=== PATIENT | female | born 1955 | race Caucasian/White ===

== ENCOUNTER 2017-07-07 22:30 | Emergency (ER) | payer BC, SELFPAY ==
[2017-07-07 22:33] VITALS: BP 150/77; PULSE 68; RESP 18; TEMP 37.1; O2SAT 98; BMI 37.0
[2017-07-07 23:03] LABS: Bacteria 0 SEEN /hpf (None Seen); Mucous, Urine 0 SEEN /hpf (<or=2+); Red Blood Cells-Urine 0 SEEN /hpf (0-5)
[2017-07-07 23:05] LABS: Absolute Lymphocyte Count 2.13 X10^3/ul (0.83-4.51); Absolute Neutrophil Count 4.3 X10^3/uL (2.0-7.7); Basophil# 0.03 X10^3/uL; Basophil% 0.4 % (0-1); Eosinophil# 0.16 X10^3/uL; Eosinophils% 2.2 % (0-5); Hematocrit 42.2 % (37-47); Hemoglobin 13.8 g/dl (12.0-15.0); Lymphocyte # 2.13 X10^3/ul (4.0); Lymphocyte % 29.4 % (19-41); Mean Corp Hgb Conc 32.7 g/gl (32-36); Mean Corpuscular Hgb 27.3 pg (27.0-32.0); Mean Corpuscular Volume 83.6 fL (81-99); Mean Platelet Vol. 9.3 fl (6.2-12.0); Monocyte# 0.57 X10^3/uL; Monocyte% 7.9 % (0-10); Neutrophil # 4.34 X10^3/uL (2.7-7.7); Neutrophil % 59.8 % (47-70); Platelet Count 207 K/mm3 (150-450); RBC Distribution Width CV 14.6 % (11.6-14.6); RBC Distribution Width SD 43.9 fl (35.1-43.9); Red Blood Count 5.05 M/mm3 (4.2-5.4); White Blood Count 7.3 K/mm3 (4.4-11.0)
[2017-07-07 23:06] LABS: POSITIVE COUNT NO; POSITIVE DIFFERENTIAL NO; POSITIVE MORPHOLOGY NO
[2017-07-07 23:07] LABS: Color, Urine Straw (Yellow); Glucose, Dipstick Normal (Normal); Ketone-Dipstick Negative (Negative); Leukocyte Esterase-Dipstick Negative /ul (Negative); Nitrite-Dipstick Negative (Negative); Occult Blood-Urine Negative /ul (Negative); Protein-Dipstick Negative (Negative); Urine Bilirubin Dipstick Negative (Negative); Urine Clarity Clear (Clear); Urine Urobilinogen Normal (Normal); Urine pH 6.5 (5.0 - 8.0)
[2017-07-07 23:13] LABS: Squamous Epithelial Cells - UA 0-5 SEEN /hpf (5-10)
[2017-07-07 23:14] LABS: Anion Gap 8 (5-15); BUN 12 mg/dL (7-18); BUN/Creat Ratio 18.9 RATIO (10-20); Calcium,Total 8.9 mg/dL (8.5-10.1); Chloride 105 mmol/L (98-107); Creatinine, Serum 0.64 mg/dL (0.55-1.02); EST Glomerular Filtration Rate 101 mL/min (>60); Est Glom Filt Rate - Afr Amer 122 mL/min (>60); Estimated Creatinine Clearance 77.33 ml/min; Glucose 208 mg/dL (74-106); Potassium 3.9 mmol/L (3.5-5.1); Sodium Level 139 mmol/L (136-145)
[2017-07-07 23:14] LABS: White Blood Cells 0-5 SEEN /hpf (0-5)
--- NOTE | 2017-07-07 23:24 | EKG12_ITS ---
Test Reason : ABD. PAIN Blood Pressure : / mmHG Vent. Rate : 069 BPM Atrial Rate : 069 BPM P-R Int : 146 ms QRS Dur : 076 ms QT Int : 410 ms P-R-T Axes : 046 -24 013 degrees QTc Int : 439 ms Normal sinus rhythm Leftward axis Poor R wave progression Septal MT, age undetermined, cannot be excluded Confirmed by TONY WHITTINGTON, NIA ([id number]), manager editorial DEMETRIA PIERRE ([id number]) on 07/11/2017 1:10:04 PM Referred By: BHAVANA Confirmed By:NIA JIMENEZ MD
--- NOTE | 2017-07-07 23:25 | CT_ITS ---
STUDY: CT ABDOMEN AND PELVIS WITH CONTRAST REASON FOR EXAM: Female, 62 years old. Lower abdominal pain with diarrhea and nausea. History of diabetes. RADIATION DOSAGE (If Supplied By Facility): CTDIvol = ( 18.63 ) mGy, DLP = ( 1260.96 ) mGycm TECHNIQUE: Transaxial images were obtained from the dome of the diaphragm to the symphysis pubis without oral contrast. 100ML ml of Isovue 300 contrast was administered. Sagittal and coronal images were reconstructed. Individualized dose optimization techniques were used for this CT. COMPARISON: None. FINDINGS: There is mild atelectasis in the visualized lung bases. The visualized portions of the heart are within normal limits. Normal liver. Normal gallbladder and extrahepatic biliary system. There is mild splenomegaly. Normal pancreas. There is a 4.6 cm right adrenal mass which has attenuation characteristics indeterminate for benign adenoma. This also contains some calcifications. Left adrenal gland appears normal. Normal right kidney. There is a 2 cm peripelvic cyst in the lower pole of the left kidney. Otherwise normal left kidney. Assessment of the stomach is limited by nondistention. Normal small intestine. Normal colon. The appendix is visualized on axial images 94-97 and it appears normal.. There is mild atherosclerotic calcification of the abdominal aorta, without a demonstrated aneurysm. Normal inferior vena cava. Normal retroperitoneum. Normal urinary bladder. There is retrograde filling of the left gonadal vein, consistent with venous valvular incompetence. There are associated left adnexal varices. Normal abdominal wall. There are multilevel degenerative changes of the visualized lumbar spine. CT/Abdomen/Pelvis W IV Cont ONLY IMPRESSION: 4.6 cm right adrenal mass. Suggest MRI of the groundglass for further characterization. Mild splenomegaly. Small left renal cyst. Atherosclerosis. No evidence for acute pathology. Electronically Signed: Gurdeep Dominguez MD at 1:27 EST , Service support ,
--- NOTE | 2017-07-07 23:30 | ED.VISSUMM ---
- ER Visit Summary Date of Service: 07/07/17 Chief Complaint: [Abdominal pain] History of Present Illness: The patient is a 62 F [who presents the emergency department with nausea and upper abdominal pain. It started this morning after she ate a fatty breakfast. She had one episode of loose stool. She was not able to sleep because the pain which she describes as epigastric and radiating across both sides. She describes as a cramping pain. It was worse this afternoon but is currently a 3 out of 10. Additionally she is concerned because 2 days ago she has severe headache right behind her left ear and felt like her legs were weak and had a brief episode of fluttering and shooting pain across her chest. She has a history of diabetes and hyperlipidemia but no other medical problems. She does not smoke or drink alcohol. She has had no abdominal surgeries. She has had chills today.] P pressure 150/77 other vitals within normal limits hysical Examination: [] Test Results: [] Emergency Department Course and Treatment: [] Blood pressure 150/77 other vitals within normal limits WN WD NAD PERRL EOMI MMM NECK supple and nontender, no masses RRR no murmur rub or gallop, no peripheral edema, symmetric radial pulses CTAB no respiratory distress ABDOMEN is soft she has mild epigastric tenderness maximal tenderness is over McBurney's point in the right lower quadrant she has a positive Rovsing's but no psoas or obturator sign, normal bowel sounds, no distension, no rebound or guarding SKIN is warm and dry no rashes Alert and Oriented x3, CN II-XII in tact, no motor or sensory deficits, gait normal No lymphadenopathy Treatment Plan: [Screening labs were unremarkable except for a blood sugar of 208 consistent with her diabetes. Urine was normal. CT of the abdomen and pelvis shows a right adrenal lesion and MRI was recommended for further workup. There is no evidence of appendicitis. Patient was feeling improved. EKG showed no ischemic changes. Troponin was normal. I did page her doctor 1 to discuss the right adrenal lesion as well as to see if they could arrange a 24-hour follow-up for reevaluation for appendicitis. Spoke with Dr. Jaramillo.] Disposition: [Patient discharge] Impression: [Abdominal pain 2. Right adrenal lesion] This note was generated with [employer] software. It may contain incorrect words, spelling, and punctuation that were not noted in review of the chart prior to signing ED Disposition - Plan for ED Patient: Chief Complaint: Abd Pain Referrals: Wyatt Hines MD [Primary Care Provider] -
[2017-07-07] MEDS: 0.9% Normal Saline 1,000 ML 1000 ML IV (23:37)
[2017-07-07] MEDS: Ondansetron 4 MG/2 ML Vial IV (23:37)
[2017-07-07 23:47] LABS: AST(SGOT) 10 U/L (15-37); Alanine Aminotransfer ALT/SGPT 23 U/L (13-56); Albumin, Serum 3.4 g/dL (3.2-5.0); Alkaline Phosphatase 124 U/L (45-117); Bilirubin, Direct 0.08 mg/dL (0.00-0.30); Globulin 3.9 g/dL (2.2-4.2); Protein, Total 7.3 g/dL (6.4-8.2)
--- NOTE | 2017-07-08 01:44 | ED.DEP ---
ED Disposition - Plan for ED Patient: Chief Complaint: Abd Pain Instructions: ED Abdominal Pain Appendx Poss Prescriptions: Ondansetron [Zofran Odt] 4 mg PO Q8H PRN PRN #7 tablet PRN Reason: Nausea Referrals: Wyatt Hines MD [Primary Care Provider] - 1 Day Additional Instructions: 4.6cm right adrenal lesion recommend MRI for follow up call Dr. Hines tomorrow. Ask to speak with nurse. State that you need re-eval for right lower quadrant abdominal pain.
--- NOTE | 2017-07-08 01:47 | DCINST.ED_ITS ---
ED Disposition - Plan for ED Patient: Chief Complaint: Abd Pain Instructions: ED Abdominal Pain Appendx Poss Prescriptions: Ondansetron [Zofran Odt] 4 mg PO Q8H PRN PRN #7 tablet PRN Reason: Nausea Referrals: Wyatt Hines MD [Primary Care Provider] - 1 Day Additional Instructions: 4.6cm right adrenal lesion recommend MRI for follow up call Dr. Hines tomorrow. Ask to speak with nurse. State that you need re- eval for right lower quadrant abdominal pain.
[2017-07-08 02:06] VITALS: BP 134/85; PULSE 56; RESP 16; O2SAT 98
== END 2017-07-08 02:06 | disposition home or self-care (01) ==
PROVIDERS: Emergency Provider Emergency Medicine; Family Provider Family Medicine; PCP Family Medicine
DX: E27.9 Disorder of adrenal gland, unspecified (principal); R10.13 Epigastric pain; E11.9 Type 2 diabetes mellitus without complications; Z79.4 Long term (current) use of insulin; E78.5 Hyperlipidemia, unspecified; Z79.899 Other long term (current) drug therapy
CPT/HCPCS: 74177; 80048; 80076; 81001; 84484; 85025; 93005; 96361; 96374; 99285; J7030; Q9967; A4216; J2405

== ENCOUNTER 2017-09-15 08:55 | Emergency (ER) | payer BC, SELFPAY ==
[2017-09-15 08:56] VITALS: BP 160/79; PULSE 86; RESP 16; TEMP 36.6; BMI 37.2
--- NOTE | 2017-09-15 09:19 | ED.VISSUMM ---
- ER Visit Summary Date of Service: 09/15/17 Chief Complaint: Wound infection History of Present Illness: The patient is a [address] Hines and Dr. aguilar. She reports that one week ago she had a cyst removed from the back of her right index finger. She was doing well until yesterday. It became red. She now has mild pain when she touches it that she describes as aching. She did not have pain prior to this. She reports it has not been draining anything. No constitutional symptoms. No fever, chills, nausea, or vomiting. Physical Examination: Vitals: Stable. Afebrile. General: Well-nourished and well-developed. Head: Normocephalic atraumatic. Neck: Supple, no lymphadenopathy. No JVD. Nontender. Cardiovascular: Regular rate and rhythm. No murmurs. Respiratory: No respiratory distress. Clear to auscultation bilaterally. Abdominal: Soft, nontender, nondistended, normal bowel sounds. No guarding, rebound, or peritoneal signs. Back: Nontender. Extremities: On the dorsum of her right index finger over the PIP joint and distally there is a 3 cm L-shaped incision that has [address] There is surrounding erythema. No induration or fluctuance.. Skin: Normal color, no rash. Neurologic: Alert and oriented ?3. Cranial nerves II through XII are intact. Normal strength and sensation. Psych: Normal affect. Test Results: [] Emergency Department Course and Treatment: Patient was given Bactrim and Keflex. She was discussed with Dr. Hernandez who states it is not unusual for the incision to appear like this. He would like the stitches left in place. Treatment Plan: Patient will be discharged on Bactrim, Keflex, and Bactroban ointment. Instructed to follow-up with Dr. Hernandez in 4 days for another exam. Disposition: To home in improved and stable condition. Impression: 1. Postop day #7 status post cyst removal right index finger. 2. Wound infection. This note was generated with [employer] software. It may contain incorrect words, spelling, and punctuation that were not noted in review of the chart prior to signing ED Disposition - Plan for ED Patient: Chief Complaint: Wound Check Instructions: ED Wound Infec After Surgery Prescriptions: Cephalexin [Keflex] 500 mg PO Q6 #40 capsule Smz/Tmp Ds [Bactrim Ds] 1 tablet PO BID #20 tablet Mupirocin [Bactroban] 1 applic TOPICAL TID #1 tube Referrals: Fidel Hernandez MD [STAFF PHYSICIAN] - 09/19/17
[2017-09-15] MEDS: Smz/Tmp Ds Tablet 1 TABLET PO (09:32)
[2017-09-15] MEDS: Cephalexin 500 MG Capsule PO (09:33)
== END 2017-09-15 10:23 | disposition home or self-care (01) ==
LOC: ED 09:55
PROVIDERS: Emergency Provider Emergency Medicine; Family Provider Family Medicine; PCP Family Medicine
DX: T81.4XXA Infection following a procedure, initial encounter (principal); B99.9 Unspecified infectious disease; E10.9 Type 1 diabetes mellitus without complications; Z79.4 Long term (current) use of insulin; L40.50 Arthropathic psoriasis, unspecified; Z79.899 Other long term (current) drug therapy
CPT/HCPCS: 99283

== ENCOUNTER 2017-12-08 05:50 | Emergency (ER) | payer OTHER, BC, SELFPAY ==
[2017-12-08 05:52] VITALS: BP 152/74; PULSE 66; RESP 18; TEMP 36.9; O2SAT 98; BMI 37.8
--- NOTE | 2017-12-08 06:49 | RAD_ITS ---
STUDY: X-RAY - LUMBAR SPINE REASON FOR EXAM: Female, 62 years old. Back pain and right hip pain. Lifting injury. TECHNIQUE: AP and lateral view(s) of the lumbar spine were obtained. COMPARISON: None FINDINGS: There is an exaggerated lumbar lordosis. There is no substantial scoliosis. There is a normal alignment of the vertebrae. There is mild degree of endplate spondylosis of the lumbar vertebrae. There is multi-level degenerative disc disease with multi-level disc space narrowing. The soft tissue structures are unremarkable. RAD/Lumbar Spine 2 or 3 Views IMPRESSION: Degenerative changes of the spine, as detailed above. Exaggerated lumbar lordosis. Electronically Signed: Kojo Carmen MD at 8:20 EDT Tel [phone], Service support ,
--- NOTE | 2017-12-08 06:49 | RAD_ITS ---
STUDY: X-RAY - RIGHT KNEE REASON FOR EXAM: Female, 62 years old. Pain following injury. TECHNIQUE: 4 view(s) of the knee. COMPARISON: None. FINDINGS: Normal visualized distal femur. Normal visualized proximal tibia and fibula. Normal proximal tibiofibular articulation. Normal medial femorotibial compartment. Normal lateral femorotibial compartment. Normal patellofemoral articulation. The soft tissue structures are unremarkable. RAD/Knee 4 or More Views IMPRESSION: Normal x-ray examination of the knee. Electronically Signed: Kojo Carmen MD at 8:08 EDT Tel [phone], Service support ,
--- NOTE | 2017-12-08 08:24 | ED.VISSUMM ---
- ER Visit Summary Date of Service: 12/08/17 Chief Complaint: Back pain History of Present Illness: The patient is a 62 F who presents with lower back pain. She was lifting a heavy box while at work. She then gradually developed right lower back pain with radiation into her hip and medial thigh. She also complains of some pain on the outside of her right knee. She has been able to ambulate. She also complains of some down the leg but no numbness. No fevers abdominal pain urinary retention or fecal incontinence. Physical Examination: Afebrile vitals unremarkable Heart regular rate and rhythm Lungs are clear Abdomen soft Patient does have paraspinal right lumbar tenderness Active full range of motion of the right hip no pain with logroll Active full range of motion of the right knee no effusion she does have some lateral tenderness Brisk capillary refill normal sensation Test Results: Lumbar x-rays show degenerative changes. Knee x-ray is normal. Emergency Department Course and Treatment: Patient advised on supportive care including anti-inflammatory use. Follow-up with [facility]. All questions answered at bedside. Patient discharged home in good condition. Treatment Plan: [] Disposition: Discharge Impression: Lumbar radiculopathy Right knee sprain This note was generated with [employer] dictation software. It may contain incorrect words, spelling, and punctuation that were not noted in review of the chart prior to signing ED Disposition - Plan for ED Patient: Chief Complaint: Back Referrals: Wyatt Hines MD [Primary Care Provider] -
--- NOTE | 2017-12-08 08:29 | ED.DCSUM_ITS ---
- ER Visit Summary Date of Service: 12/08/17 Chief Complaint: Back pain History of Present Illness: The patient is a 62 F who presents with lower back pain. She was lifting a heavy box while at work. She then gradually developed right lower back pain with radiation into her hip and medial thigh. She also complains of some pain on the outside of her right knee. She has been able to ambulate. She also complains of some down the leg but no numbness. No fevers abdominal pain urinary retention or fecal incontinence. Physical Examination: Afebrile vitals unremarkable Heart regular rate and rhythm Lungs are clear Abdomen soft Patient does have paraspinal right lumbar tenderness Active full range of motion of the right hip no pain with logroll Active full range of motion of the right knee no effusion she does have some lateral tenderness Brisk capillary refill normal sensation Test Results: Lumbar x-rays show degenerative changes. Knee x-ray is normal. Emergency Department Course and Treatment: Patient advised on supportive care including anti-inflammatory use. Follow-up with [facility]. All questions answered at bedside. Patient discharged home in good condition. Treatment Plan: [] Disposition: Discharge Impression: Lumbar radiculopathy Right knee sprain This note was generated with [employer] dictation software. It may contain incorrect words, spelling, and punctuation that were not noted in review of the chart prior to signing ED Disposition - Plan for ED Patient: Chief Complaint: Back Referrals: Wyatt Hines MD [Primary Care Provider] -
--- NOTE | 2017-12-08 08:31 | ED.DEP ---
ED Disposition - Plan for ED Patient: Chief Complaint: Back Instructions: ED Sciatica, ED Sprain Knee Referrals: Wyatt Hines MD [Primary Care Provider] - [facility] [GROUP OF PHYSICIANS] -
[2017-12-08 08:43] VITALS: BP 122/76; PULSE 71; RESP 16; O2SAT 99
== END 2017-12-08 08:44 | disposition home or self-care (01) ==
LOC: ED 06:58
PROVIDERS: Emergency Provider Emergency Medicine; Family Provider Family Medicine; PCP Family Medicine
DX: M54.16 Radiculopathy, lumbar region (principal); S83.91XA Sprain of unspecified site of right knee, initial encounter; X50.0XXA Overexertion from strenuous movement or load, initial encounter; Y93.89 Activity, other specified; Y92.9 Unspecified place or not applicable; Y99.0 Civilian activity done for income or pay; E78.00 Pure hypercholesterolemia, unspecified; E11.40 Type 2 diabetes mellitus with diabetic neuropathy, unspecified; K21.9 Gastro-esophageal reflux disease without esophagitis; M19.90 Unspecified osteoarthritis, unspecified site; Z79.4 Long term (current) use of insulin; Z79.899 Other long term (current) drug therapy
CPT/HCPCS: 72100; 73564; 99282

== ENCOUNTER 2018-08-29 17:13 | Emergency (ER) | payer OTHER, SELFPAY ==
[2018-08-29 17:14] VITALS: BP 157/80; PULSE 85; RESP 16; TEMP 36.3; O2SAT 97; BMI 35.5
--- NOTE | 2018-08-29 17:45 | ED.VISSUMM ---
- ER Visit Summary Date of Service: 08/29/18 Chief Complaint: Atraumatic right lateral elbow pain History of Present Illness: The patient is a 63 F history of insulin-dependent diabetes and high cholesterol. Patient is right-hand dominant. She works at [employer]. She does a lot of work with her hands. For the last 2 days she has had right lateral elbow pain worse with movement. No swelling. No fall or trauma. No fever or redness. No prior arm surgery. She said it does radiate up into her shoulder at times. Worse with movement better with rest. Physical Examination: Older female vital signs are stable afebrile. HEENT exam unremarkable. Neck nontender. Lungs clear to auscultation bilaterally. Heart regular rhythm no murmur. Abdomen soft and nontender. Normal bowel sounds no peritoneal signs. Patient moving all 4 extremities. Neurovascular intact. Her right shoulder wrist and hand are nontender neurovascular intact. Palpable radial pulse. 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 Normal cap refill in the hand. Normal sensation. She has full range of motion or shoulder and wrist. She is able to do flexion and extension of the right elbow pain with flexion and also with supination. She has tenderness along her right lateral epicondyles consistent with a lateral epicondylitis. No bony deformity. No redness or warmth. No swelling. Right hand has normal sensation and cap refill. She also some mild tenderness behind the right scapula soft tissue. Neurologically she is awake and alert with no deficit. Test Results: None Emergency Department Course and Treatment: Patient's history and exam are consistent with right lateral epicondylitis. She does not need any imaging due to there is been no trauma. There is no signs of infection. Treatment Plan: Ice to the area. Rest. Forearm compression band. Motrin 600 mg 3-4 times a day. Follow-up with not improving. Disposition: Discharge Impression: Acute right lateral elbow pain secondary to lateral epicondylitis Workers comp This note was generated with [employer] dictation software. It may contain incorrect words, spelling, and punctuation that were not noted in review of the chart prior to signing ED Disposition - Plan for ED Patient: Referrals: Wyatt Hines MD [Primary Care Provider] -
--- NOTE | 2018-08-29 17:48 | ED.DCSUM_ITS ---
- ER Visit Summary Date of Service: 08/29/18 Chief Complaint: Atraumatic right lateral elbow pain History of Present Illness: The patient is a 63 F history of insulin-dependent diabetes and high cholesterol. Patient is right-hand dominant. She works at [employer]. She does a lot of work with her hands. For the last 2 days she has had right lateral elbow pain worse with movement. No swelling. No fall or trauma. No fever or redness. No prior arm surgery. She said it does radiate up into her shoulder at times. Worse with movement better with rest. Physical Examination: Older female vital signs are stable afebrile. HEENT exam unremarkable. Neck nontender. Lungs clear to auscultation bilaterally. Heart regular rhythm no murmur. Abdomen soft and nontender. Normal bowel sounds no peritoneal signs. Patient moving all 4 extremities. Neurovascular intact. Her right shoulder wrist and hand are nontender neurovascular intact. Palpable radial pulse. 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 Normal cap refill in the hand. Normal sensation. She has full range of motion or shoulder and wrist. She is able to do flexion and extension of the right elbow pain with flexion and also with supination. She has tenderness along her right lateral epicondyles consistent with a lateral epicondylitis. No bony deformity. No redness or warmth. No swelling. Right hand has normal sensation and cap refill. She also some mild tenderness behind the right scapula soft tissue. Neurologically she is awake and alert with no deficit. Test Results: None Emergency Department Course and Treatment: Patient's history and exam are consistent with right lateral epicondylitis. She does not need any imaging due to there is been no trauma. There is no signs of infection. Treatment Plan: Ice to the area. Rest. Forearm compression band. Motrin 600 mg 3-4 times a day. Follow-up with not improving. Disposition: Discharge Impression: Acute right lateral elbow pain secondary to lateral epicondylitis Workers comp This note was generated with [employer] dictation software. It may contain incorrect words, spelling, and punctuation that were not noted in review of the chart prior to signing ED Disposition - Plan for ED Patient: Referrals: Wyatt Hines MD [Primary Care Provider] -
--- NOTE | 2018-08-29 17:49 | ED.DEP ---
ED Disposition - Plan for ED Patient: Disposition: Home or Assisted Living Instructions: ED Epicondylitis Lateral Elbow Referrals: [facility] [GROUP OF PHYSICIANS] - 1 Week if not improving Additional Instructions: Ice to right elbow to decrease pain and inflammation. Motrin or Advil for pain and swelling. Rest. You may want to get a compression band at a local sporting goods store or pharmacy. You have lateral epicondylitis or tennis elbow.
[2018-08-29 17:53] VITALS: BP 163/118; PULSE 83; RESP 16; O2SAT 97
[2018-08-29 17:59] VITALS: BP 130/63; PULSE 80; RESP 16; O2SAT 96
== END 2018-08-29 18:01 | disposition home or self-care (01) ==
LOC: ED 17:56
PROVIDERS: Emergency Provider Emergency Medicine; Family Provider Family Medicine; PCP Family Medicine
DX: M77.11 Lateral epicondylitis, right elbow (principal); E78.00 Pure hypercholesterolemia, unspecified; E11.9 Type 2 diabetes mellitus without complications; Z79.4 Long term (current) use of insulin
CPT/HCPCS: 99282

== ENCOUNTER → 2019-11-02 11:00 | Outpatient (CLI) | payer BC, SELFPAY ==
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
== END ==
PROVIDERS: PCP Nurse Practitioner Primary Care; Referring Provider Psychiatry & Neurology Neurology; Visit Provider Psychiatry & Neurology Neurology
DX: F03.90 Unspecified dementia, unspecified severity, without behavioral disturbance, psychotic disturbance, mood disturbance, and anxiety (principal)
CPT/HCPCS: 70551

== ENCOUNTER 2022-03-03 16:34 | Observation (INO) | payer MEDICARE, SELFPAY ==
[2022-03-03 16:35] VITALS: BP 138/62; PULSE 97; RESP 16; TEMP 37.2; O2SAT 96; BMI 30.9
--- NOTE | 2022-03-03 18:43 | EX.ED.DYSGE1 ---
HPI History of Present Illness Chief Complaint: Edema Informant: patient and spouse/S.O. Narrative Narrative: SeenPatient presents with diffuse edema. This has been going on for about a week. Been notably worsening but is also not getting a lot better. For the first few days it did worsen. She is not having chest pain. No fevers chills. She does have some overall decreased energy but she just had chemotherapy for the third time 3 weeks ago. She does not know if she had any cardiotoxic chemotherapy. She has no history of CHF. She states sometimes she feels puffy with her breathing but this is not new or different. Its not consistent. It is intermittent. Its not going on now. She is still able to walk and do her long walks. But her energy levels last. But its not due to dyspnea. No cough or hemoptysis. No orthopnea. No history of DVT or PE. She saw her oncologist today. They wanted her evaluated in the ED pending repeat chemotherapy tomorrow. She was diagnosed with breast cancer back in December. She has had 3 chemotherapies total. Each 1 has had different side effects. The edema is new this time. Nothing makes this notably better or worse. Elevation helps slightly but does not resolve it. [facility] Medical History Adrenal disorder Anxiety and depression Bone fracture Breast lump Cyst GERD (gastroesophageal reflux disease) Heart murmur Neuropathy Osteoarthritis Psoriatic arthritis Seasonal allergies Skin cancer STD (female) Type 2 diabetes mellitus Vision problem Home Medications adrenal rx herbal PO 10/12/17 [History Last Taken Unknown] apremilast 30 mg tablet (Otezla) 30 mg PO .q d 10/12/17 [History Last Taken Unknown] atorvastatin 20 mg tablet 20 mg PO QDAY 10/12/17 [History Last Taken Unknown] buspirone 10 mg tablet 10 mg PO .q d 10/12/17 [History Last Taken Unknown] escitalopram oxalate 10 mg tablet 10 mg PO QDAY 10/12/17 [History Last Taken Unknown] gabapentin 300 mg capsule 600 mg PO QDAY 10/12/17 [History Last Taken Unknown] insulin glargine U-300 conc 300 unit/mL (1.5 mL) subcutaneous pen (Topriscila SoloStar U-300 Insulin) 55 unit subcut .COMPLEX 10/12/17 [History Last Taken Unknown] insulin lispro 100 unit/mL subcutaneous pen (Humalog KwikPen (U-100) Insulin) See Rx Instructions subcut TID 10/12/17 [History Last Taken Unknown] ranitidine HCl 150 mg capsule 150 mg PO PRN PRN Heartburn 10/12/17 [History Last Taken Unknown] Allergy/AdvReac Type Severity Reaction Status Date / Time Penicillins [PCN] Allergy Other Verified 03/03/22 16:35 niacin AdvReac Other Verified 03/03/22 16:35 Family History Mother Anxiety Cancer Father Diabetes Surgical History H/O dilation and curettage Social History Smoking Status: Never smoker alcohol intake: current substance use type: does not use additional social history: DOES USE ASPIRIN DOES USE IBUPROFEN ROS ROS ED Constitutional Constitutional ED: Denies chills or fever(s) ENT ENT ED: Denies rhinorrhea or sore throat Cardiovascular Cardiovascular: Denies chest pain, orthopnea, palpitations or racing heartbeat Respiratory/Chest Respiratory/Chest: Denies cough, dyspnea on exertion or orthopnea Gastrointestinal Gastrointestinal: Denies nausea Genitourinary Genitourinary ED: Reports other Details: No notable change in urine output. ; Denies dysuria Musculoskeletal Musculoskeletal: Reports myalgias and other Details: She does complain of some muscle aches mostly in her quadriceps area. This mostly occurs with increased activity. ; Denies arthralgias Integumentary Denies rash Neurologic Neurologic: Denies headache(s) or paresthesias Endocrine Endocrinology: Denies polydipsia or polyuria Hematologic/Lymphatic Hematologic/Lymphatic: Denies easy bleeding or easy bruising Allergic/Immunologic Allergic/Immunologic ED: Denies urticaria EXAM Physical Exam Const Vital Signs: 03/03/22 16:35 03/03/22 20:38 03/03/22 22:21 Temperature 98.9 F Temperature Source Temporal Pulse Rate 97 89 87 Respiratory Rate 16 17 24 H Blood Pressure 138/62 H 90/57 L 118/64 Blood Pressure Mean 87 68 82 Pulse Ox 96 98 97 Oxygen Delivery Method Room Air Room Air Room Air Positive well nourished and well developed General Appearance ED: well developed and NAD; Negative for cyanotic or diaphoretic HEENT Reports moist mucous membranes Eyes General Eye ED: Negative for scleral icterus Neck no JVD Resp normal respiratory effort and clear to auscultation bilaterally Resp Narrative: Lungs are completely clear bilaterally. No rales at the bases. No pain with a deep breath Auscultation: Negative for rales, rhonchi or wheezes Cardio Negative for regular rate or regular rhythm GI Negative for normal to inspection, nondistended, normoactive bowel sounds or non-tender Palpation: soft Back/Spine no CVA tenderness Extremity Extremity Narrative: Patient does have some trace pitting edema to upper and lower extremities. Most of this is from elbow and knees down. No real asymmetry. No erythema or warmth. No distended veins. Also note med port in right medial arm that looks healthy and no sign of infection. Neuro Sensorium / Orientation: alert Skin no rashes or lesions noted General Skin Exam: Negative for jaundice MDM MDM MDM Narrative Medical decision making narrative: Patient's labs show new anemia that is likely due to her chemotherapy. This could be some contribution to her symptoms. Metabolic panel shows actually low BUN and creatinine. She is trying to drink fluids but not a large amount. Liver function test overall look good. Calcium is a little bit low but this is likely due to hypoalbuminemia. Her magnesium is also low at 1.2 which is probably a contributor why she felt so weak and needed help getting up her steps by her . BNP looks good and troponin looks good. Urine had some increased white cells and cloudy but she is not having symptoms of UTI so this was sent off for culture. Chest x-ray showed atelectasis and poor inspiration but no convincing evidence of CHF. However, this patient has been on cardiotoxic chemotherapeutic agents. I talked with her oncologist, Dr. Kong. He was very concerned about this. He felt with her's rapid onset of symptoms, the drugs she got and need to know to adjust further therapies we need to get an echo to see cardiac function. I think patient will also clinically improve in terms of strength with magnesium. I gave oral initially. But we will initiate IV therapy in house. I did discuss case with hospitalist and explained the situation to patient and her . Lab Data Attestation: I reviewed the patient's lab results. Labs: Laboratory Results - last 24 hr 03/03/22 03/03/22 03/03/22 18:55 18:55 18:55 WBC 6.4 RBC 3.07 L Hgb 9.0 L Hct 29.2 L MCV 95.1 MCH 29.3 MCHC 30.8 L RDW Std Deviation 70.5 H RDW Coeff of Ricardo 20.7 H Plt Count 205 MPV 9.2 Immature Gran % (Auto) 1.300 H Neut % (Auto) 63.4 Lymph % (Auto) 24.3 [place] % (Auto) 10.5 H Eos % (Auto) 0.0 Baso % (Auto) 0.5 Absolute Neuts (auto) 4.1 Absolute Lymphs (auto) 1.55 Nucleated RBC % 0 Platelet Estimate ADEQUATE RBC Morphology N CHROM Anisocytosis RARE Macrocytosis RARE Sodium 144 Potassium 3.5 Chloride 114 H Carbon Dioxide 22.0 Anion Gap 8 BUN 6 L Creatinine 0.44 L Estim Creat Clear Calc 110.07 Est GFR (MDRD) Af Amer 182 Est GFR (MDRD) Non-Af 151 BUN/Creatinine Ratio 13.5 Glucose 101 Calcium 7.8 L Phosphorus 3.6 Magnesium 1.2 L Total Bilirubin 0.30 AST 19 ALT 21 Alkaline Phosphatase 56 Troponin I High Sens 9 B-Natriuretic Peptide 49.2 Total Protein 5.2 L Albumin 2.6 L Globulin 2.6 Albumin/Globulin Ratio 1.0 Urine Color Urine Clarity Urine pH Ur Specific [place] Urine Protein Urine Glucose (UA) Urine Ketones Urine Occult Blood Urine Nitrite Urine Bilirubin Urine Urobilinogen Ur Leukocyte Esterase Urine RBC Urine WBC Ur Squamous Epith Cells Urine Bacteria Urine Mucus 03/03/22 20:05 WBC RBC Hgb Hct MCV MCH MCHC RDW Std Deviation RDW Coeff of Ricardo Plt Count MPV Immature Gran % (Auto) Neut % (Auto) Lymph % (Auto) [place] % (Auto) Eos % (Auto) Baso % (Auto) Absolute Neuts (auto) Absolute Lymphs (auto) Nucleated RBC % Platelet Estimate RBC Morphology Anisocytosis Macrocytosis Sodium Potassium Chloride Carbon Dioxide Anion Gap BUN Creatinine Estim Creat Clear Calc Est GFR (MDRD) Af Amer Est GFR (MDRD) Non-Af BUN/Creatinine Ratio Glucose Calcium Phosphorus Magnesium Total Bilirubin AST ALT Alkaline Phosphatase Troponin I High Sens B-Natriuretic Peptide Total Protein Albumin Globulin Albumin/Globulin Ratio Urine Color Yellow Urine Clarity Sl. Cloudy Urine pH 5.0 Ur Specific [place] 1.020 Urine Protein 15 H Urine Glucose (UA) Normal Urine Ketones 50 H Urine Occult Blood Negative Urine Nitrite Negative Urine Bilirubin Negative Urine Urobilinogen Normal Ur Leukocyte Esterase 100 H Urine RBC 0-5 SEEN Urine WBC 5-10 SEEN Ur Squamous Epith Cells 0-5 SEEN Urine Bacteria 1+ Urine Mucus 0 SEEN Radiography Diagnostic Testing: Clinical Impression(s) from Imaging Studies Venous Duplex 03/03/22 18:54 IMPRESSION: Normal venous Doppler ultrasound of the bilateral lower extremities. Electronically Signed: Fredy Wagner MD at 20:06 EDT Reading Location ID and State: [id number] / [employer] Tel , Service support , Chest X-Ray 03/03/22 19:50 IMPRESSION: Poor inspiration with some bibasilar atelectasis. Electronically Signed: Fredy Wagner MD at 20:07 EDT , Chest x-ray was poor inspiration with basilar atelectasis. Ultrasound showed normal bilateral lower extremities. EKG Initial EKG: Comments: EKG done for some generalized weakness and exposure to cardiotoxic drugs. EKG read by me shows a sinus rhythm. Overall rate of 88. No ventricular ectopy. Mild left axis deviation and nonspecific ST and T wave changes but no sign of infarct or ischemia acutely. There is some poor anterior R wave and R wave progression. MA interval, QRS duration and QTc are normal. Discharge Plan Dx/Rx/DC Orders Clinical Impression: Anasarca, Muscle weakness, Hypomagnesemia, Encounter for monitoring cardiotoxic drug therapy Disposition Disposition: Acute Care Hospital [facility]
--- NOTE | 2022-03-03 18:54 | US_ITS ---
STUDY: VENOUS DOPPLER ULTRASOUND - BILATERAL LOWER EXTREMITIES REASON FOR EXAM: Female, 67 years old. bilateral swelling TECHNIQUE: Ultrasound evaluation of the deep vein system to include quiroz-scale imaging and compression was performed. Quiroz-scale imaging and Doppler sonographic evaluation, including duplex spectral analysis and qualitative color flow sonography, was performed. COMPARISON: None. FINDINGS: RIGHT LEG Common Femoral Vein: Normal compression, spontaneity and augmentation. Normal color Doppler. Common Femoral Vein/Greater Saphenous Junction: Normal compression, spontaneity and augmentation. Normal color Doppler. Deep Femoral Vein: Normal compression, spontaneity and augmentation. Normal color Doppler. Femoral Proximal: Normal compression, spontaneity and augmentation. Normal color Doppler. Femoral Middle: Normal compression, spontaneity and augmentation. Normal color Doppler. Femoral Distal: Normal compression, spontaneity and augmentation. Normal color Doppler. Popliteal Vein: Normal compression, spontaneity and augmentation. Normal color Doppler. Posterior Tibial Vein: Normal compression, spontaneity and augmentation. Normal color Doppler. Peroneal Vein: Normal compression, spontaneity and augmentation. Normal color Doppler. LEFT LEG Common Femoral Vein: Normal compression, spontaneity and augmentation. Normal color Doppler. Common Femoral Vein/Greater Saphenous Junction: Normal compression, spontaneity and augmentation. Normal color Doppler. Deep Femoral Vein: Normal compression, spontaneity and augmentation. Normal color Doppler. Femoral Proximal: Normal compression, spontaneity and augmentation. Normal color Doppler. Femoral Middle: Normal compression, spontaneity and augmentation. Normal color Doppler. Femoral Distal: Normal compression, spontaneity and augmentation. Normal color Doppler. Popliteal Vein: Normal compression, spontaneity and augmentation. Normal color Doppler. Posterior Tibial Vein: Normal compression, spontaneity and augmentation. Normal color Doppler. Peroneal Vein: Normal compression, spontaneity and augmentation. Normal color Doppler. US/Venous Duplex Imag/Chad Extrem IMPRESSION: Normal venous Doppler ultrasound of the bilateral lower extremities. Electronically Signed: Fredy Wagner MD at 20:06 EDT ,
[2022-03-03 19:08] LABS: Absolute Lymphocyte Count 1.55 X10^3/uL (0.83-4.51); Absolute Neutrophil Count 4.1 X10^3/uL (2.0-7.7); Basophil# 0.03 X10^3/uL; Basophil% 0.5 % (0-1); Hematocrit 29.2 % (37-47); Lymphocyte # 1.55 X10^3/ul (0.83-4.51); Lymphocyte % 24.3 % (19-41); Mean Corp Hgb Conc 30.8 g/dL (32-36); Mean Corpuscular Hgb 29.3 pg (27.0-32.0); Mean Corpuscular Volume 95.1 fL (81-99); Mean Platelet Vol. 9.2 fl (6.2-12.0); Monocyte# 0.67 X10^3/uL; Monocyte% 10.5 % (0-10); NRBC Flagged by Analyzer 0 % (0-5); Neutrophil # 4.06 X10^3/uL (2.7-7.7); Neutrophil % 63.4 % (47-70); POSITIVE MORPHOLOGY YES; Platelet Count 205 K/mm3 (150-450); RBC Distribution Width CV 20.7 % (11.6-14.6); RBC Distribution Width SD 70.5 fl (35.1-43.9); Red Blood Count 3.07 M/mm3 (4.2-5.4); White Blood Count 6.4 K/mm3 (4.4-11.0)
[2022-03-03 19:13] LABS: Differential Indicated SCAN CRITERIA MET
[2022-03-03 19:38] LABS: AST(SGOT) 19 U/L (15-37); Alanine Aminotransfer ALT/SGPT 21 U/L (13-56); Albumin, Serum 2.6 g/dL (3.2-5.0); Alkaline Phosphatase 56 U/L (45-117); Anion Gap 8 (5-15); BUN 6 mg/dL (7-18); BUN/Creat Ratio 13.5 RATIO (10-20); Calcium,Total 7.8 mg/dL (8.5-10.1); Chloride 114 mmol/L (98-107); Creatinine, Serum 0.44 mg/dL (0.55-1.02); EST Glomerular Filtration Rate 151 mL/min (>60); Est Glom Filt Rate - Afr Amer 182 mL/min (>60); Estimated Creatinine Clearance 110.07 ml/min; Globulin 2.6 g/dL (2.2-4.2); Glucose 101 mg/dL (74-106); Magnesium 1.2 mg/dL (1.6-2.6); Phosphorus 3.6 mg/dL (2.5-4.9); Potassium 3.5 mmol/L (3.5-5.1); Protein, Total 5.2 g/dL (6.4-8.2); Sodium Level 144 mmol/L (136-145); Troponin-I HS 9 pg/mL (3.0-54.0)
--- NOTE | 2022-03-03 19:50 | RAD_ITS ---
STUDY: X-RAY CHEST REASON FOR EXAM: Female, 67 years old. edema, ?CHF TECHNIQUE: Single AP portable view of the chest. COMPARISON: None. FINDINGS: Right upper chest and a PICC with tip the catheter overlying the spur vena cava. Poor inspiration with some bibasilar atelectasis. There is no demonstrated pleural abnormality. Normal size heart. Normal mediastinum and maribeth. Normal visualized pulmonary arteries. Normal visualized aortic arch and descending thoracic aorta. Normal visualized thoracic spine. Normal visualized ribs, clavicles, and shoulders. There is no demonstrated abnormality of the visualized soft tissue structures of the upper abdomen. RAD/Chest 1 View (Portable) IMPRESSION: Poor inspiration with some bibasilar atelectasis. Electronically Signed: Fredy Wagner MD at 20:07 EDT ,
[2022-03-03 19:58] LABS: Anisocytosis RARE; Platelet Estimate ADEQUATE (ADEQ); Red Cell Morphology N CHROM NORMAL (NORM C&C)
[2022-03-03 19:59] LABS: Macrocytosis RARE
[2022-03-03 20:10] LABS: Color, Urine Yellow (Yellow); Glucose, Dipstick Normal (Normal); Ketone-Dipstick 50 mg/dl (Negative); Leukocyte Esterase-Dipstick 100 /ul (Negative); Nitrite-Dipstick Negative (Negative); Occult Blood-Urine Negative /ul (Negative); Protein-Dipstick 15 mg/dl (Negative); Urine Bilirubin Dipstick Negative (Negative); Urine Clarity Sl. Cloudy (Clear); Urine Urobilinogen Normal (Normal)
[2022-03-03 20:11] LABS: Mucous, Urine 0 SEEN /hpf (<or=2+)
[2022-03-03 20:15] LABS: BNP,B-Type NATRIURETIC PEPTIDE 49.2 pg/mL (0-100)
[2022-03-03 20:19] LABS: Red Blood Cells-Urine 0-5 SEEN /hpf (0-5); Squamous Epithelial Cells - UA 0-5 SEEN /hpf (5-10); White Blood Cells 5-10 SEEN /hpf (0-5)
[2022-03-03 20:20] LABS: Bacteria 1+ /hpf (None Seen)
[2022-03-03 20:38] VITALS: BP 90/57; PULSE 89; RESP 17; O2SAT 98
[2022-03-03] MEDS: Magnesium Chloride 64 MG Delay Rel.Tablet 128 MG PO (20:52)
--- NOTE | 2022-03-03 22:18 | EKG12_ITS ---
Test Reason : DYSRHYTHMIA Blood Pressure : / mmHG Vent. Rate : 088 BPM Atrial Rate : 088 BPM P-R Int : 156 ms QRS Dur : 080 ms QT Int : 376 ms P-R-T Axes : 046 -34 056 degrees QTc Int : 454 ms Normal sinus rhythm Left axis deviation Septal infarct , age undetermined Abnormal ECG Confirmed by ADRIAN WHITTINGTON, SCOTTIE ([id number]), scientific editor BRENDA WORLEY ([id number]) on 03/04/2022 2:06:25 P M Referred By: PL Confirmed By:SHERRI CAMPBELL MD
[2022-03-03 22:21] VITALS: BP 118/64; PULSE 87; RESP 24; O2SAT 97
--- NOTE | 2022-03-03 22:26 | PCM.HP.STD ---
HPI - General General Date of Admission: 03/03/22 Date of Service: 03/03/22 Chief Complaint: Severe BL UE/LE edema on chemotherapy. HPI Narrative The patient is a 67 y/o F w/ PMHx: Anxiety and Depression, Allergic rhinitis, Diabetes mellitus type II with neuropathy, GERD, Psoriatic arthritis, HLD, Breast Cancer with ongoing chemotherapy with last treatment ~ 3 weeks prior with 3 treatments total noted to have been diagnosed with breast cancer 12/2021 who presents to the [facility] ED on 03/03/22 with history of progressively worsening diffuse significant edema, worse in bilateral lower extremities progressing over the last week with decreased energy, fatigue and malaise with no chest pain or dyspnea markedly associated still able to walk and ambulate however given significant edema there was concern for cardiotoxicity secondary to chemotherapy with referral to the ED per her oncologist. She does report mild improvement of lower extremity swelling with elevation but this is only minimal. Work-up in the ED included T98.9, heart rate 97, BP 138/62, respiratory rate 16, 96% on room air, CBC with WC 6.4, hemoglobin 9.0, MCV 95.1, platelet 2 5 with increased immature granulocytes, CMP with chloride 114, BUN/creatinine 6/0.44, calcium 7.8, Phos 3.6, magnesium 1.2, hepatic profile not marked appearing, albumin 2.6, BNP 49.2, troponin 9, urinalysis with elevated specific remedy 1.020, negative nitrite, leukocyte Estrace 100, urine WC is 5-10 with 1+ urine bacteria, venous duplex ultrasound bilateral lower extremities negative for DVT, chest x-ray with poor inspiration with some bibasilar atelectasis, EKG with poor R wave progression otherwise SR without acute evidence of ischemia, UCx pending per ED but given no symptoms abx deferred. [facility] Medical History Adrenal disorder Anxiety and depression Bone fracture Breast lump Cyst GERD (gastroesophageal reflux disease) Heart murmur Neuropathy Osteoarthritis Psoriatic arthritis Seasonal allergies Skin cancer STD (female) Type 2 diabetes mellitus Vision problem Home Medications adrenal rx herbal PO 10/12/17 [History Last Taken Unknown] apremilast 30 mg tablet (Otezla) 30 mg PO .q d 10/12/17 [History Last Taken Unknown] atorvastatin 20 mg tablet 20 mg PO QDAY 10/12/17 [History Last Taken Unknown] buspirone 10 mg tablet 10 mg PO .q d 10/12/17 [History Last Taken Unknown] escitalopram oxalate 10 mg tablet 10 mg PO QDAY 10/12/17 [History Last Taken Unknown] gabapentin 300 mg capsule 600 mg PO QDAY 10/12/17 [History Last Taken Unknown] insulin glargine U-300 conc 300 unit/mL (1.5 mL) subcutaneous pen (Toujeo SoloStar U-300 Insulin) 55 unit subcut .COMPLEX 10/12/17 [History Last Taken Unknown] insulin lispro 100 unit/mL subcutaneous pen (Humalog KwikPen (U-100) Insulin) See Rx Instructions subcut TID 10/12/17 [History Last Taken Unknown] ranitidine HCl 150 mg capsule 150 mg PO PRN PRN Heartburn 10/12/17 [History Last Taken Unknown] Allergy/AdvReac Type Severity Reaction Status Date / Time Penicillins [PCN] Allergy Other Verified 03/03/22 16:35 niacin AdvReac Other Verified 03/03/22 16:35 Family History Mother Anxiety Cancer Father Diabetes Surgical History H/O dilation and curettage Social History (Updated 03/03/22 @ 23:[address] Sita Mckenzie MD) household members: spouse Smoking Status: Never smoker alcohol intake: current substance use type: does not use additional social history: DOES USE ASPIRIN DOES USE IBUPROFEN ROS ROS Narrative Admission Review of Systems: CONSTITUTIONAL: No weight loss, fever, chills, + weakness or fatigue. HEENT: Eyes: No visual loss, blurred vision, double vision or yellow sclerae. Ears, Nose, Throat: No hearing loss, sneezing, congestion, runny nose or sore throat. SKIN: No rash or itching, lesions, wounds. CARDIOVASCULAR: + Notable extremity edema. No chest pain, chest pressure or chest discomfort, palpitations, orthopnea, syncopal events. RESPIRATORY: No marked shortness of breath despite edema as noted, No cough or sputum, wheezing, hemoptysis. GASTROINTESTINAL: No anorexia, nausea, vomiting or diarrhea, abdominal pain, melena, BRBPR. GENITOURINARY: No dysuria, frequency, urgency or retention. NEUROLOGICAL: No headache, dizziness, syncope, paralysis, ataxia, numbness or tingling in the extremities, focal weakness, change in bowel or bladder control, seizure. MUSCULOSKELETAL: + muscle, back pain, joint pain or stiffness. HEMATOLOGIC: + anemia, bleeding or bruising. LYMPHATICS: No enlarged nodes. No history of splenectomy. PSYCHIATRIC: + history of depression or anxiety. ENDOCRINOLOGIC: No reports of sweating, cold or heat intolerance. No polyuria or polydipsia. ALLERGIES: No history of asthma, hives, eczema or rhinitis. Vital Signs Vital Signs Vital Signs: 03/03/22 16:35 03/03/22 20:38 03/03/22 22:21 Temperature 98.9 F Temperature Source Temporal Pulse Rate 97 89 87 Respiratory Rate 16 17 24 H Blood Pressure 138/62 H 90/57 L 118/64 Blood Pressure Mean 87 68 82 Pulse Ox 96 98 97 Oxygen Delivery Method Room Air Room Air Room Air Weight Weight: 179 lb 14.355 oz Body Mass Index (BMI) 30.9 Physical Exam Narrative Physical Examination: General: Awake, alert, oriented x 3 and cooperative, seated upright in the ED bed, fatigued, denies any acute complaints Skin: Normal color, normal turgor, no icterus, no cyanosis except occasional staged ecchymoses. HEENT: AT/NC, EOMI, PERRLA, MMM, no carotid bruits or JVD noted. Lungs: Mildly diminished, greater bases, appropriate effort, no rales, ronchi or wheezing. Heart: Regular rate and rhythm; no gallop, rub audible. Abdomen: Soft, obese, NTTP, ND, distant normal BS, no HSM. Extremities: No cyanosis, no clubbing, both upper and lower extremity swelling, more notable hands bilaterally as well as pedal to proximal ramirez bilaterally, unable to significantly pit. Neurological: Patient awake, alert, oriented as noted, cognitive function intact; pupils equally reactive to light and accommodation, cranial nerves II-XII grossly normal, moving all 4 extremities, no focal deficits, strength moderately to severely globally decreased secondary to acute presentation and recent worsening fatigue. Psychiatric: Affect appears fatigued otherwise normal, no acute evidence of depressive or anxiety feelings. Results Lab / Micro Data Result Diagrams: 03/03/22 18:55 03/03/22 18:55 Labs: Laboratory Results - last 24 hr 03/03/22 18:55: WBC 6.4, RBC 3.07 L, Hgb 9.0 L, Hct 29.2 L, MCV 95.1, MCH 29.3, MCHC 30.8 L, RDW Std Deviation 70.5 H, RDW Coeff of Ricardo 20.7 H, Plt Count 205, MPV 9.2, Immature Gran % (Auto) 1.300 H, Neut % (Auto) 63.4, Lymph % (Auto) 24.3, Ritchie % (Auto) 10.5 H, Eos % (Auto) 0.0, Baso % (Auto) 0.5, Absolute Neuts (auto) 4.1, Absolute Lymphs (auto) 1.55, Nucleated RBC % 0, Platelet Estimate ADEQUATE, RBC Morphology N CHROM, Anisocytosis RARE, Macrocytosis RARE 03/03/22 18:55: Sodium 144, Potassium 3.5, Chloride 114 H, Carbon Dioxide 22.0, Anion Gap 8, BUN 6 L, Creatinine 0.44 L, Estim Creat Clear Calc 110.07, Est GFR (MDRD) Af Amer 182, Est GFR (MDRD) Non-Af 151, BUN/Creatinine Ratio 13.5, Glucose 101, Calcium 7.8 L, Phosphorus 3.6, Magnesium 1.2 L, Total Bilirubin 0.30, AST 19, ALT 21, Alkaline Phosphatase 56, Troponin I High Sens 9, Total Protein 5.2 L, Albumin 2.6 L, Globulin 2.6, Albumin/Globulin Ratio 1.0 03/03/22 18:55: B-Natriuretic Peptide 49.2 03/03/22 20:05: Urine Color Yellow, Urine Clarity Sl. Cloudy, Urine pH 5.0, Ur Specific [place] 1.020, Urine Protein 15 H, Urine Glucose (UA) Normal, Urine Ketones 50 H, Urine Occult Blood Negative, Urine Nitrite Negative, Urine Bilirubin Negative, Urine Urobilinogen Normal, Ur Leukocyte Esterase 100 H, Urine RBC 0-5 SEEN, Urine WBC 5-10 SEEN, Ur Squamous Epith Cells 0-5 SEEN, Urine Bacteria 1+, Urine Mucus 0 SEEN Radiology Impression Venous Duplex 03/03/22 18:54 IMPRESSION: Normal venous Doppler ultrasound of the bilateral lower extremities. Electronically Signed: Fredy Wagner MD at 20:06 EDT , Chest X-Ray 03/03/22 19:50 IMPRESSION: Poor inspiration with some bibasilar atelectasis. Electronically Signed: Fredy Wagner MD at 20:07 EDT , Assessment & Plan Assessment/Plan (1) Anasarca: PLAN: Plan The patient is a 67 y/o F w/ PMHx: Anxiety and Depression, Allergic rhinitis, Diabetes mellitus type II with neuropathy, GERD, Psoriatic arthritis, HLD, Breast Cancer with ongoing chemotherapy with last treatment ~ 3 weeks prior with 3 treatments total noted to have been diagnosed with breast cancer 12/2021 who presents to the [facility] ED on 03/03/22 with history of progressively worsening diffuse significant edema, worse in bilateral lower extremities progressing over the last week with decreased energy, fatigue and malaise with no chest pain or dyspnea markedly associated still able to walk and ambulate however given significant edema there was concern for cardiotoxicity secondary to chemotherapy with referral to the ED per her oncologist. #1. Bilateral upper and lower extremity significant edema, anasarca, possible chemotherapy side effect: Patient is not significantly hypoxic and chest x-ray does not demonstrate any significant overload with a normal BNP. To be cautious however given significant edema on evaluation although not markedly pitting could certainly be chemotherapeutic side effect therefore we will admit to PCU, maintain on monitor, cycle cardiac enzymes be cautious, supplement magnesium given significant decreased level 1.2, obtain echocardiogram, place neck Elvis wraps to bilateral lower extremity with elevation as able, will pulse dose with IV Lasix and continue to closely monitor. If there is significant cardiac changes/findings on echocardiogram may need to involve cardiology #2. Bilateral breast cancer, unclear type: Patient with bilateral breast cancer with bilateral lumpectomies previously performed. Patient is unclear if she had lymph node dissections also performed but would assume this was likely also performed. Patient has ongoing chemotherapy noting 3 treatments total with most recent approximately 3 weeks prior to current presentation with over the last week as noted significant edema with concern for cardiotoxicity. Patient is following with Dr. Kong. Mag 1.2, being supplemented, Phos normal level. #3. Chronic anemia, normocytic: Admission hemoglobin 9.0, unclear current hemoglobin baseline but ongoing chemotherapy likely etiology, continue to trend CBC #4. Hypomagnesia: Admission magnesium level 1.2, supplemental magnesium ordered, will repeat level in AM. #5. Diabetes mellitus type II with neuropathy: Will continue home insulin regimen, ADA diet, accu checks w/ ISS, continue patient home gabapentin regimen. #6. Anxiety and depression: We will continue patient home escitalopram and BuSpar regimen. #7. Psoriatic arthritis: Patient is on chronic apremilast regimen which will be continued. #8. Hyperlipidemia: We will continue patient on statin therapy. #9. GERD: We will continue patient home ranitidine regimen. #10. DVT prophylaxis: SCDs, Lovenox. #11. CODE status: Patient does not have a formal healthcare power of civil attorney assigned but she notes her would be her decision-maker and living will is currently being performed. Discussed CODE status at length including difference between FULL code, DNR-CCA and DNR-CC status. Following discussions about the differences in these status, requested Full Code status. Advanced Care Planning Face to Face Time: 16 minutes. Charges/Coding Visit Charges OBSV E&M: 31209 Initial observation care L3 Procedures Hospitalists Procedures: 47890 Advncd Care Plan 30 Min
[2022-03-03 23:21] VITALS: BP 129/80; PULSE 75; RESP 18; TEMP 36.1; O2SAT 97
[2022-03-03 23:37] VITALS: PULSE 89; BMI 30.3
--- NOTE | 2022-03-03 23:51 | ECHOD_ITS ---
Reason For Study: EDEMA Procedure This was a 2D Doppler, Color Flow transthoracic echocardiogram. Exam performed portable in patient room. Left Ventricle Normal LV size. The estimated ejection fraction is 55 %. Normal diastology for age. No regional wall motion abnormalities noted. Right Ventricle Normal RV size. Normal systolic function. Atria The left atrium is mildly enlarged. Normal right atrium. No doppler evidence for ASD. Mitral Valve There is no mitral valve stenosis. Trivial mitral valve insufficiency. Tricuspid Valve There is no tricuspid stenosis. Trivial tricuspid valve insufficiency. Unable to estimate RV systolic pressure due to insufficient tricuspid regurgitant envelope. RVSP appears to be elevated. Aortic Valve Trisinus/trileaflet aortic valve. Aortic sclerosis, no stenosis. There is no aortic stenosis. No aortic valve insufficiency. Pulmonic Valve There is no pulmonic valvular stenosis. No pulmonic valve insufficiency. Great Vessels Normal aortic root. Pericardium/Pleural No pericardial effusion. MMode/2D Measurements & Calculations LVIDd: 5.0 cm IVSd: 1.2 cm Ao root diam: 3.0 cm LVIDs: 3.6 cm LVPWd: 1.1 cm RVDd: 3.5 cm FS: 27.9 % LAV(MOD-bp): 63.5 ml LVAd ap4: 28.7 cm2 SV(MOD-sp4): 56.7 ml LAV(MOD-bp) Indexed: 34.3 ml/m2 LVLd ap4: 8.0 cm LAV(MOD-sp2): 79.1 ml EDV(MOD-sp4): 83.8 ml LAV(MOD-sp4): 44.0 ml EDV(sp4-el): 87.5 ml LVAs ap4: 14.2 cm2 LVLs ap4: 6.2 cm ESV(MOD-sp4): 27.1 ml ESV(sp4-el): 27.6 ml EF(MOD-sp4): 67.7 % EF(sp4-el): 68.5 % SV(sp4-el): 59.9 ml LA A4 area: 16.2 cm2 LA dimension(2D): 4.3 cm RA A4 area: 12.9 cm2 Doppler Measurements & Calculations MV E max fabiano: 126.1 cm/sec Lat Peak E' Fabiano: 10.5 cm/sec Med Peak E' Fabiano: 7.6 cm/sec MV A max fabiano: 120.4 cm/sec E/E' lat: 12.0 E/E' med: 16.5 MV E/A: 1.0 MV V2 max: 147.1 cm/sec Ao V2 max: 217.1 cm/sec LV V1 max: 139.7 cm/sec MV max P.7 mmHg Ao max P.9 mmHg LV V1 max P.8 mmHg MV V2 mean: 116.3 cm/sec Ao V2 mean: 156.5 cm/sec LV V1 mean P.7 mmHg MV mean P.8 mmHg Ao mean P.1 mmHg LV V1 mean: 103.8 cm/sec MV V2 VTI: 40.0 cm Ao V2 VTI: 44.3 cm LV V1 VTI: 28.6 cm PA V2 max: 115.9 cm/sec TR max fabiano: 348.0 cm/sec PA V2 mean: 92.8 cm/sec TR max P.4 mmHg ECHO/Echo Complete Interpretation Summary The estimated ejection fraction is 55 %. The left atrium is mildly enlarged. Trivial mitral valve insufficiency. Trivial tricuspid valve insufficiency. Ordering Physician: Sita Mckenzie Referring Physician: Sumit Bales MD Performed By: Cristy Zaidi RCS
[2022-03-03 23:55] VITALS: BP 138/73; PULSE 93; RESP 18; TEMP 37.1; O2SAT 97
[2022-03-04] VITALS (7 sets, daily range): BP systolic 102–127; BP diastolic 53–62; PULSE 88–103; RESP 16–18; TEMP 36.7–37.2; O2SAT 95–98
[2022-03-04 00:31] LABS: Troponin-I HS 9 pg/mL (3.0-54.0)
[2022-03-04] MEDS: Magnesium Sulfate 4gm/100mL 4 GM/100 ML IV.SOLN. IV (00:35)
[2022-03-04] MEDS: Furosemide 40 MG/4 ML Vial IV (01:03)
[2022-03-04 01:14] LABS: Troponin-I HS 9 pg/mL (3.0-54.0)
[2022-03-04 06:39] LABS: Absolute Lymphocyte Count 1.77 X10^3/uL (0.83-4.51); Absolute Neutrophil Count 3.9 X10^3/uL (2.0-7.7); Basophil# 0.05 X10^3/uL; Basophil% 0.8 % (0-1); Hematocrit 30.6 % (37-47); Hemoglobin 9.7 g/dL (12.0-15.0); Lymphocyte # 1.77 X10^3/ul (0.83-4.51); Lymphocyte % 27.9 % (19-41); Mean Corp Hgb Conc 31.7 g/dL (32-36); Mean Corpuscular Hgb 29.4 pg (27.0-32.0); Mean Corpuscular Volume 92.7 fL (81-99); Mean Platelet Vol. 9.1 fl (6.2-12.0); Monocyte# 0.61 X10^3/uL; Monocyte% 9.6 % (0-10); NRBC Flagged by Analyzer 0 % (0-5); Neutrophil # 3.85 X10^3/uL (2.7-7.7); Neutrophil % 60.6 % (47-70); POSITIVE MORPHOLOGY YES; Platelet Count 274 K/mm3 (150-450); RBC Distribution Width CV 20.5 % (11.6-14.6); RBC Distribution Width SD 67.9 fl (35.1-43.9); White Blood Count 6.4 K/mm3 (4.4-11.0)
[2022-03-04 06:41] LABS: Differential Indicated SCAN CRITERIA MET
[2022-03-04 07:00] LABS: Anisocytosis 1+; Differential Comment SCANNED; Macrocytosis RARE; Microcytosis RARE
[2022-03-04 07:10] LABS: Bedside Glucose 100 mg/dL (74-106)
[2022-03-04 07:19] LABS: AST(SGOT) 19 U/L (15-37); Alanine Aminotransfer ALT/SGPT 20 U/L (13-56); Albumin, Serum 2.8 g/dL (3.2-5.0); Alkaline Phosphatase 58 U/L (45-117); Anion Gap 9 (5-15); BUN 4 mg/dL (7-18); Calcium,Total 8.2 mg/dL (8.5-10.1); Chloride 112 mmol/L (98-107); EST Glomerular Filtration Rate 171 mL/min (>60); Est Glom Filt Rate - Afr Amer 207 mL/min (>60); Estimated Creatinine Clearance 121.08 ml/min; Globulin 2.8 g/dL (2.2-4.2); Glucose 98 mg/dL (74-106); Magnesium 2.3 mg/dL (1.6-2.6); Potassium 3.2 mmol/L (3.5-5.1); Protein, Total 5.6 g/dL (6.4-8.2); Sodium Level 143 mmol/L (136-145)
[2022-03-04] MEDS: busPIRone 5 MG Tablet 10 MG PO (10:31)
[2022-03-04] MEDS: Gabapentin 600 MG Tablet PO (10:31)
[2022-03-04] MEDS: Potassium Chloride Oral Tablet 20 MEQ 60 MEQ PO (10:31)
[2022-03-04] MEDS: Escitalopram Oxalate 10 MG Tablet PO (10:32)
[2022-03-04] MEDS: Enoxaparin 40 MG/0.4 ML Syringe SC (10:32)
[2022-03-04] MEDS: Insulin Lispro 100 UNIT/ML INSULN.PEN SC (12:23)
[2022-03-04 12:45] LABS: Bedside Glucose 173 mg/dL (74-106)
--- NOTE | 2022-03-04 14:18 | PCM.DC ---
Discharge Instructions Diet Discharge Diet: 1800 Calorie Control Diet and 2000 mg Sodium Diet Activity Discharge Activity: Return to Normal Activity Follow Up Care Test Results: Test results from this visit will be discussed in further detail at your follow-up appointment, if applicable. Discharge Plan Admission Admit Date/Time: 03/03/22 22:37 Primary Reason for Your Visit: Bilateral lower extremity edema Attending Provider: Estephania Hernandez Primary Care Provider: Robb Banda Consulting Providers: Sita Mckenzie Instructions Additional Instructions / Restrictions: Continue with your chemotherapy recommendations per oncology Follow-up with oncology as planned You will need repeat blood work with 1 week to follow-up on hypokalemia and hypomagnesemia. Discharge Orders/Prescriptions Prescriptions: Continued gabapentin 300 mg capsule 600 mg PO QDAY buspirone 10 mg tablet 10 mg PO .q d ranitidine 150 mg capsule 150 mg capsule 150 mg PO PRN PRN (Reason: Heartburn) escitalopram oxalate 10 mg tablet 10 mg PO QDAY atorvastatin 20 mg tablet 20 mg PO QDAY apremilast [Otezla] 30 mg tablet 30 mg PO .q d adrenal rx herbal PO insulin lispro [Humalog KwikPen Insulin] 100 unit/mL insulin pen See Rx Instructions SC TID Label Comments: 20 units TID Rx Instructions: 20 units + sliding scale SC BID insulin glargine U-300 conc [Toujeo SoloStar U-300 Insulin] 300 unit/mL (1.5 mL) insulin pen 55 unit SC .COMPLEX Label Comments: 70 unit SC with supper Rx Instructions: 70 unit SC with supper Referrals / Follow Up: Robb Banda MD [Primary Care Provider] - Kendrick Narayan NP, [employer] [Non-Staff] - Disposition Disposition (needs filled in before D/C Order can be placed): Home, Self Care
--- NOTE | 2022-03-04 14:35 | CASEMGMT ---
This RN CM to room to discuss d/c plan and pt states no concerns with going home at time of discharge. Pt declines need for any further therapy and voices no further questions/concerns/needs. SStaten RN CM
--- NOTE | 2022-03-04 15:39 | PCM.DC.SUM ---
Providers Date of Admission: 03/03/22 Date of Discharge: 03/04/22 Primary Care Physician: Dr. Robb Banda MD Reason For Visit: EDEMA, HYPOMAGNESIUM Diagnosis Discharge Diagnosis (1) Anasarca: Status: Acute Code(s): R60.1 - Generalized edema Medications at Discharge Home Medications adrenal rx herbal PO supplement 10/12/17 apremilast 30 mg tablet (Otezla) 30 mg PO .q d arthritis 10/12/17 atorvastatin 20 mg tablet 20 mg PO QDAY cholesterol 10/12/17 buspirone 10 mg tablet 10 mg PO .q d mental health 10/12/17 escitalopram oxalate 10 mg tablet 10 mg PO QDAY mental health 10/12/17 gabapentin 300 mg capsule 600 mg PO QDAY nerve pain 10/12/17 insulin glargine U-300 conc 300 unit/mL (1.5 mL) subcutaneous pen (Toujeo SoloStar U-300 Insulin) 55 unit subcut .COMPLEX diabetes 10/12/17 insulin lispro 100 unit/mL subcutaneous pen (Humalog KwikPen (U-100) Insulin) See Rx Instructions subcut TID diabetes 10/12/17 ranitidine HCl 150 mg capsule 150 mg PO PRN PRN Heartburn 10/12/17 Hospital Course Operations None Procedures None Summary of Care Provided Minutes Spent on Discharge: 35 Hospital Course: 67-year-old female with past medical history of breast CA, undergoing chemotherapy, follows with oncology, anxiety/depression who comes in with progressive worsening bilateral lower extremity edema associated with fatigue and malaise. Patient denied any chest pain or dizziness or palpitations or weight gain. Her vitals in the ED were stable. Admitting blood work was also stable except for magnesium 1.2. This was replaced. Patient had venous Doppler ultrasound of both legs are negative for acute DVT. Chest x-ray showed poor inspiration with some bibasilar atelectasis. Patient was admitted overnight and underwent 2D echo that showed an EF of 55%. No diastolic dysfunction found. Discussed with oncology, patient will be discharged home. Patient's albumin was 2.3 on the day of discharge. Potassium was 3.2. Potassium was replaced. She was strongly asked to continue with protein supplementation to increase her albumin. She knows to follow-up with Dr. Kong next week as scheduled. She also needs repeat blood work within a week to check on her kidney function. Physical Exam Narrative Physical exam: General: Alert, Oriented x3, Cooperative, No apparent distress HEENT: Atraumatic Oral: Moist Mucosa Neck: Supple Lungs: Clear to auscultation Cardiovascular: HS I+II, regular, no murmurs Abdomen: Bowel Sounds Present, Soft, Non Tender Extremities: Bilateral pedal edema +1 Skin: No rashes, No breakdown Neurological: Grossly intact Psych/Mental Status: Appropriate Weight / BMI Weight Weight: 79.9 kg Body Mass Index (BMI) 30.3 ABG / Lab / Microbiology Data Result Diagrams: 03/04/22 06:00 03/04/22 06:00 Laboratory: Laboratory Results - last 24 hr 03/03/22 18:55: WBC 6.4, RBC 3.07 L, Hgb 9.0 L, Hct 29.2 L, MCV 95.1, MCH 29.3, MCHC 30.8 L, RDW Std Deviation 70.5 H, RDW Coeff of Ricardo 20.7 H, Plt Count 205, MPV 9.2, Immature Gran % (Auto) 1.300 H, Neut % (Auto) 63.4, Lymph % (Auto) 24.3, [place] % (Auto) 10.5 H, Eos % (Auto) 0.0, Baso % (Auto) 0.5, Absolute Neuts (auto) 4.1, Absolute Lymphs (auto) 1.55, Nucleated RBC % 0, Platelet Estimate ADEQUATE, RBC Morphology N CHROM, Anisocytosis RARE, Macrocytosis RARE 03/03/22 18:55: Sodium 144, Potassium 3.5, Chloride 114 H, Carbon Dioxide 22.0, Anion Gap 8, BUN 6 L, Creatinine 0.44 L, Estim Creat Clear Calc 110.07, Est GFR (MDRD) Af Amer 182, Est GFR (MDRD) Non-Af 151, BUN/Creatinine Ratio 13.5, Glucose 101, Calcium 7.8 L, Phosphorus 3.6, Magnesium 1.2 L, Total Bilirubin 0.30, AST 19, ALT 21, Alkaline Phosphatase 56, Troponin I High Sens 9, Total Protein 5.2 L, Albumin 2.6 L, Globulin 2.6, Albumin/Globulin Ratio 1.0 03/03/22 18:55: B-Natriuretic Peptide 49.2 03/03/22 20:05: Urine Color Yellow, Urine Clarity Sl. Cloudy, Urine pH 5.0, Ur Specific [place] 1.020, Urine Protein 15 H, Urine Glucose (UA) Normal, Urine Ketones 50 H, Urine Occult Blood Negative, Urine Nitrite Negative, Urine Bilirubin Negative, Urine Urobilinogen Normal, Ur Leukocyte Esterase 100 H, Urine RBC 0-5 SEEN, Urine WBC 5-10 SEEN, Ur Squamous Epith Cells 0-5 SEEN, Urine Bacteria 1+, Urine Mucus 0 SEEN 03/04/22 00:03: Troponin I High Sens 9 03/04/22 00:45: Troponin I High Sens 9 03/04/22 06:00: WBC 6.4, RBC 3.30 L, Hgb 9.7 L, Hct 30.6 L, MCV 92.7, MCH 29.4, MCHC 31.7 L, RDW Std Deviation 67.9 H, RDW Coeff of Ricardo 20.5 H, Plt Count 274, MPV 9.1, Immature Gran % (Auto) 1.100 H, Neut % (Auto) 60.6, Lymph % (Auto) 27.9, [place] % (Auto) 9.6, Eos % (Auto) 0.0, Baso % (Auto) 0.8, Absolute Neuts (auto) 3.9, Absolute Lymphs (auto) 1.77, Nucleated RBC % 0, Differential Comment SCANNED, Anisocytosis 1+, Microcytosis RARE, Macrocytosis RARE 03/04/22 06:00: Sodium 143, Potassium 3.2 L, Chloride 112 H, Carbon Dioxide 22.0, Anion Gap 9, BUN 4 L, Creatinine 0.40 L, Estim Creat Clear Calc 121.08, Est GFR (MDRD) Af Amer 207, Est GFR (MDRD) Non-Af 171, BUN/Creatinine Ratio 10.0, Glucose 98, Calcium 8.2 L, Magnesium 2.3, Total Bilirubin 0.40, AST 19, ALT 20, Alkaline Phosphatase 58, Total Protein 5.6 L, Albumin 2.8 L, Globulin 2.8, Albumin/Globulin Ratio 1.0 03/04/22 06:49: POC Glucose 100 03/04/22 12:00: POC Glucose 173 H Microbiology: Microbiology 03/03/22 20:05 Urine, Clean Catch Urine Culture - Preliminary GNR lactose infection prevention specialist Radiography Diagnostic Testing: Radiology Impression Venous Duplex 03/03/22 18:54 IMPRESSION: Normal venous Doppler ultrasound of the bilateral lower extremities. Electronically Signed: Fredy Wagner MD at 20:06 EDT , Chest X-Ray 03/03/22 19:50 IMPRESSION: Poor inspiration with some bibasilar atelectasis. Electronically Signed: Fredy Wagner MD at 20:07 EDT , Echocardiogram 03/03/22 23:51 Interpretation Summary The estimated ejection fraction is 55 %. The left atrium is mildly enlarged. Trivial mitral valve insufficiency. Trivial tricuspid valve insufficiency. Ordering Physician: Sita Mckenzie Referring Physician: Sumit Bales MD Performed By: Cristy Zaidi RCS D/C Instructions Discharge Diet: 1800 Calorie Control Diet and 2000 mg Sodium Diet Meaningful Use Info Meaningful Use Diagnoses (Choose all that apply): None applicable Discharge Plan Admission Admit Date/Time: 03/03/22 22:37 Primary Reason for Your Visit: Bilateral lower extremity edema Attending Provider: Estephania Hernandez Primary Care Provider: Robb Banda Consulting Providers: Sita Mckenzie Instructions Additional Instructions / Restrictions: Continue with your chemotherapy recommendations per oncology Follow-up with oncology as planned You will need repeat blood work with 1 week to follow-up on hypokalemia and hypomagnesemia. Discharge Orders/Prescriptions Prescriptions: Continued gabapentin 300 mg capsule 600 mg PO QDAY buspirone 10 mg tablet 10 mg PO .q d ranitidine 150 mg capsule 150 mg capsule 150 mg PO PRN PRN (Reason: Heartburn) escitalopram oxalate 10 mg tablet 10 mg PO QDAY atorvastatin 20 mg tablet 20 mg PO QDAY apremilast [Otezla] 30 mg tablet 30 mg PO .q d adrenal rx herbal PO insulin lispro [Humalog KwikPen Insulin] 100 unit/mL insulin pen See Rx Instructions SC TID Label Comments: 20 units TID Rx Instructions: 20 units + sliding scale SC BID insulin glargine U-300 conc [Toujeo SoloStar U-300 Insulin] 300 unit/mL (1.5 mL) insulin pen 55 unit SC .COMPLEX Label Comments: 70 unit SC with supper Rx Instructions: 70 unit SC with supper Referrals / Follow Up: Robb Banda MD [Primary Care Provider] - Kendrick Narayan NP, [employer] [Non-Staff] - Disposition Disposition (needs filled in before D/C Order can be placed): Home, Self Care Charges/Coding Visit Charges Inpatient E&M: 23529 Disch Hosp
[2022-03-04] MEDS: 0.9% Saline Lock 10 ML Syringe IV (16:31)
--- NOTE | 2022-03-04 17:03 | NURSING ---
Charting reviewed with Alyssa Alvarez RN
== END 2022-03-04 14:18 | disposition home or self-care (01) ==
LOC: ED 22:50 → PCU 03-04 04:19
PROVIDERS: Admitting Provider Family Medicine; Emergency Provider Emergency Medicine; PCP Internal Medicine; Visit Provider Internal Medicine
DX: R60.1 Generalized edema (principal); L40.50 Arthropathic psoriasis, unspecified; E11.40 Type 2 diabetes mellitus with diabetic neuropathy, unspecified; C50.919 Malignant neoplasm of unspecified site of unspecified female breast; Z79.4 Long term (current) use of insulin; F41.9 Anxiety disorder, unspecified; D64.9 Anemia, unspecified; M62.81 Muscle weakness (generalized); E83.42 Hypomagnesemia; T45.1X5A Adverse effect of antineoplastic and immunosuppressive drugs, initial encounter; E78.5 Hyperlipidemia, unspecified; J98.11 Atelectasis; F32.A Depression, unspecified; Z79.899 Other long term (current) drug therapy; K21.9 Gastro-esophageal reflux disease without esophagitis; M19.90 Unspecified osteoarthritis, unspecified site
CPT/HCPCS: 36415; 36591; 71045; 80053; 81001; 82962; 83735; 83880; 84100; 84484; 85025; 87077; 87086; 87088; 87186; 93005; 93306; 93970; 96365; 96366; 96372; 96375; 97802; 99218; 99284; A4216; G0378; J1940

== ENCOUNTER 2022-10-10 12:56 | Inpatient (IN) | payer MEDICARE, SELFPAY ==
[2022-10-10] VITALS (12 sets, daily range): BP systolic 102–171; BP diastolic 66–86; PULSE 87–106; RESP 14–19; TEMP 36.4–36.9; O2SAT 95–100; BMI 28.5; BMI 27.6
--- NOTE | 2022-10-10 13:18 | CT_ITS ---
EXAM: CT ABDOMEN AND PELVIS WITH INTRAVENOUS CONTRAST CLINICAL INDICATION: abdominal pain TECHNIQUE: Helically acquired images were obtained of the abdomen and pelvis with intravenous contrast. This CT exam was performed using one or more of the following dose reduction techniques: automated exposure control, adjustment of the mA and/or kV according to patient size, and/or use of iterative reconstruction technique. CONTRAST: IV 100mL [id number]-[id number] COMPARISON: CT Abdomen Pelvis dated 07/07/2017 FINDINGS: LOWER THORAX: Normal. Lung bases are clear. No cardiomegaly. No pericardial effusion. ABDOMEN: LIVER: Normal. Homogeneous. No focal mass. PANCREAS: Normal. No focal cystic or solid mass. SPLEEN: Normal. Normal size without focal cystic or solid mass. ADRENALS: Stable 5 cm right adrenal mass. Normal left adrenal gland. KIDNEYS AND URETERS: Mild distention of the renal collecting system noted bilaterally secondary to markedly distended urinary bladder. Normal renal size and position. STOMACH AND BOWEL: A prominent stool burden within the right side of the colon with gaseous distention of the transverse colon may represent ileus. PELVIS: APPENDIX: Appendix is visualized and normal in appearance. BLADDER: No urinary bladder wall thickening. REPRODUCTIVE: Unremarkable as visualized. No mass. ABDOMEN and PELVIS: INTRAPERITONEAL SPACE: Normal. No ascites or other fluid collection. No free air. BONES/JOINTS: No suspicious lytic or blastic abnormality. SOFT TISSUES: Normal. No discrete abdominal or pelvic wall hernia. VASCULATURE: Normal. Abdominal aorta is non-dilated. LYMPH NODES: Normal. No enlarged lymph nodes. CT/Abdomen/Pelvis W IV Cont ONLY IMPRESSION: 1. Stable 5 cm right adrenal mass. 2. Large bowel ileus. 3. Over distended urinary bladder. Electronically Signed: David Pickering MD at 15:47 EDT ,
--- NOTE | 2022-10-10 13:36 | EX.ED.DYSGE1 ---
HPI <MARIE Mosquera - Last Filed: 10/10/22 16:16> History of Present Illness Chief Complaint: Weakness Narrative Narrative: Patient is a 67-year-old female with history of breast cancer with bilateral mastectomy, diabetes, chronic pain who presents to the emergency department with 1 week of generalized weakness, difficulty ambulating, frequent falls. Patient does receive infusions of immunotherapy every 3 weeks, she does take a chemo pill every day. Patient denies any fever chills or infectious symptoms. Patient is currently on Augmentin for diverticulitis which her PCP put her on. Patient denies any specific blood in her stool or vomit. Patient states she is just generally weak and cannot do the things she normally does such as walking her house. Patient did have a fall today however was caught by her had no injury. PFS <MARIE Mosquera - Last Filed: 10/10/22 16:16> [facility], [facility] Medical History Adrenal disorder Anxiety and depression Bone fracture Breast lump Cyst GERD (gastroesophageal reflux disease) Heart murmur Neuropathy Osteoarthritis Psoriatic arthritis Seasonal allergies Skin cancer STD (female) Type 2 diabetes mellitus Vision problem Home Medications amoxicillin 875 mg-potassium clavulanate 125 mg tablet 1 tab PO BID 10/10/22 [History Last Taken Unknown] anastrozole 1 mg tablet 1 mg PO DAILY 10/10/22 [History Last Taken Unknown] atorvastatin 40 mg tablet 40 mg PO QHS 10/10/22 [History Last Taken Unknown] citalopram 20 mg tablet 20 mg PO DAILY 10/10/22 [History Last Taken Unknown] citicoline 500 mg capsule ([employer]) 500 mg PO DAILY 10/10/22 [History Last Taken Unknown] gabapentin 300 mg capsule 300 mg PO QHS 10/10/22 [History Last Taken Unknown] insulin glargine 100 unit/mL (3 mL) subcutaneous pen (Basaglar KwikPen U-100 Insulin) 46 unit subcut QPM 10/10/22 [History Last Taken Unknown] insulin lispro 100 unit/mL subcutaneous pen 10 unit subcut BIDAC 10/10/22 [History Last Taken Unknown] lisinopril 10 mg-hydrochlorothiazide 12.5 mg tablet 1 tab PO DAILY 10/10/22 [History Last Taken Unknown] magnesium oxide 400 mg PO DAILY 10/10/22 [History Last Taken Unknown] ljolsxcacbjd-pfuztkcu-cftxdkx-folic acid 400 mcg-vit K1 20 mcg tablet (Women's 50 Plus Advanced) 1 tab PO DAILY 10/10/22 [History Last Taken Unknown] omeprazole 40 mg capsule,delayed release 40 mg PO DAILY 10/10/22 [History Last Taken Unknown] polyethylene glycol 3350 17 gram/dose oral powder (Miralax) 17 g PO DAILY 10/10/22 [History Last Taken Unknown] potassium chloride 20 mEq tablet,extended release 20 meq PO BID 10/10/22 [History Last Taken Unknown] promethazine 25 mg tablet 25 mg PO Q6H PRN Nausea 10/10/22 [History Last Taken Unknown] Allergy/AdvReac Type Severity Reaction Status Date / Time Penicillins [PCN] Allergy Other Verified 10/10/22 12:57 niacin AdvReac Other Verified 10/10/22 12:57 Family History Mother Anxiety Cancer Father Diabetes Surgical History H/O dilation and curettage Social History household members: spouse Smoking Status: Never smoker alcohol intake: current substance use type: does not use additional social history: DOES USE ASPIRIN DOES USE IBUPROFEN ROS <MARIE Mosquera - Last Filed: 10/10/22 16:16> ROS ED ROS Narrative Constitutional: Negative for fever, chills, weight loss. Positive generalized weakness Eyes: Negative for vision loss, vision change, double vision ENT: Negative for any sore throat, ear pain, congestion Cardiovascular: Negative for any chest pain, tightness, palpitations Respiratory: Negative for any cough, sputum production, hemoptysis, dyspnea, dyspnea on exertion, orthopnea Gastrointestinal: Negative for any abdominal pain, vomiting, diarrhea, blood in stool, blood in vomit. Positive for nausea, lack of appetite, constipation : Negative for any urinary frequency, dysuria, retention, blood in urine Muscle skeletal: Negative for any muscle joint pain, stiffness, myalgias, arthralgias, neck pain, back pain Neurological: Negative for any headache, syncope, numbness or tingling, dizziness Skin: Negative for any rashes, lumps, itching, abrasions, lacerations Psychiatric: Negative for any depression, anxiety, stress, suicidal ideation, homicidal ideation Hematologic: Negative for any easy bruising, excessive bruising, easy bleeding Allergies: Negative for any eczema, hives, rash EXAM <Alden StevieMARIE eric - Last Filed: 10/10/22 16:16> Physical Exam Narrative Exam Narrative: Vital signs reviewed. Alert and oriented x4, patient is acting appropriate HEET: Head normocephalic atraumatic, TMs clear bilaterally. Posterior pharynx is clear, dry mucous membranes. Nares clear bilaterally. Neck: Supple with no lymphadenopathy or tenderness. No signs of meningismus, negative jolt sign. Cardiac: Regular rate and rhythm no murmurs gallops or rubs, equal peripheral pulses bilaterally. Respiratory: Diminished lung sounds in the bases. No chest tenderness. Abdomen: Soft, nontender, nondistended. No abdominal bruit or pulsatile masses. No hepatosplenomegaly. Negative for any peritoneal signs, hypoactive bowel sounds Extremities: No peripheral edema, no signs of gross trauma or deformity. Active full range of motion of all extremities. Neuro: Cranial nerves II through XII intact, no focal neurological deficits. Skin: Clean dry and intact with no rash, purpura, petechiae, vesicles or pustules. Backs/flank: No CVA tenderness, no midline spinal tenderness, no deformity. Psych: Normal mood and affect. No SI, HI or acute psychosis. Const Vital Signs: 10/10/22 12:57 10/10/22 13:37 10/10/22 15:34 Temperature 97.6 F L Temperature Source Temporal Pulse Rate 104 H Respiratory Rate 18 18 Respiratory Effort Normal Non-Labored Respiratory Pattern Normal Blood Pressure 133/74 H Blood Pressure Mean 93 Pulse Ox 99 Oxygen Delivery Method Room Air Room Air Positive well nourished, well developed and obese General Appearance ED: well developed Nutritional Appearance: obese <Dr. Giancarlo Solomon DO - Last Filed: 10/10/22 17:01> Physical Exam Const Vital Signs: 10/10/22 12:57 10/10/22 13:37 10/10/22 15:34 Temperature 97.6 F L Temperature Source Temporal Pulse Rate 104 H Respiratory Rate 18 18 Respiratory Effort Normal Non-Labored Respiratory Pattern Normal Blood Pressure 133/74 H Blood Pressure Mean 93 Pulse Ox 99 Oxygen Delivery Method Room Air Room Air [facility] <MARIE Mosquera - Last Filed: 10/10/22 16:16> [facility] Lab Data Attestation: I reviewed the patient's lab results. Labs: Laboratory Results - last 24 hr 10/10/22 10/10/22 10/10/22 13:33 13:33 13:33 WBC 18.7 H RBC 4.39 Hgb 12.1 Hct 33.8 L MCV 77.0 L MCH 27.6 MCHC 35.8 RDW Std Deviation 43.7 RDW Coeff of Ricardo 15.5 H Plt Count 244 MPV 7.9 Immature Gran % (Auto) 1.100 H Neut % (Auto) 78.2 H Lymph % (Auto) 13.2 L Swain % (Auto) 7.3 Eos % (Auto) 0.0 Baso % (Auto) 0.2 Absolute Neuts (auto) 14.6 H Absolute Lymphs (auto) 2.48 Nucleated RBC % 0 Sodium 112 L* Potassium 3.8 Chloride 76 L Carbon Dioxide 26.0 Anion Gap 10 BUN 15 Creatinine 0.64 Estim Creat Clear Calc 75.68 Est GFR (MDRD) Af Amer 120 Est GFR (MDRD) Non-Af 99 BUN/Creatinine Ratio 23.4 H Glucose 201 H Calcium 8.7 Magnesium 2.0 Total Bilirubin 0.50 AST 24 ALT 22 Alkaline Phosphatase 114 Troponin I High Sens 8 Total Protein 7.2 Albumin 3.1 L Globulin 4.1 Albumin/Globulin Ratio 0.8 L Lipase 47 Urine Color Urine Clarity Urine pH Ur Specific [place] Urine Protein Urine Glucose (UA) Urine Ketones Urine Occult Blood Urine Nitrite Urine Bilirubin Urine Urobilinogen Ur Leukocyte Esterase Urine RBC Urine WBC Ur Squamous Epith Cells Urine Bacteria Urine Mucus Urine Osmolality 10/10/22 10/10/22 15:28 15:28 WBC RBC Hgb Hct MCV MCH MCHC RDW Std Deviation RDW Coeff of Ricardo Plt Count MPV Immature Gran % (Auto) Neut % (Auto) Lymph % (Auto) Swain % (Auto) Eos % (Auto) Baso % (Auto) Absolute Neuts (auto) Absolute Lymphs (auto) Nucleated RBC % Sodium Potassium Chloride Carbon Dioxide Anion Gap BUN Creatinine Estim Creat Clear Calc Est GFR (MDRD) Af Amer Est GFR (MDRD) Non-Af BUN/Creatinine Ratio Glucose Calcium Magnesium Total Bilirubin AST ALT Alkaline Phosphatase Troponin I High Sens Total Protein Albumin Globulin Albumin/Globulin Ratio Lipase Urine Color Yellow Urine Clarity Clear Urine pH 7.0 Ur Specific [place] 1.005 Urine Protein 15 H Urine Glucose (UA) 100 H Urine Ketones Negative Urine Occult Blood Negative Urine Nitrite Negative Urine Bilirubin Negative Urine Urobilinogen Normal Ur Leukocyte Esterase 25 H Urine RBC 0 SEEN Urine WBC 0-5 SEEN Ur Squamous Epith Cells 0-5 SEEN Urine Bacteria 0 SEEN Urine Mucus 0 SEEN Urine Osmolality 251 Radiography Diagnostic Testing: Clinical Impression(s) from Imaging Studies Abdomen/Pelvis CT 10/10/22 13:18 IMPRESSION: 1. Stable 5 cm right adrenal mass. 2. Large bowel ileus. 3. Over distended urinary bladder. Electronically Signed: David Pickering MD at 15:47 EDT Reading Location ID and State: [facility] Tel , Service support , EKG Normal sinus rhythm: Attestation: I personally reviewed and interpreted this EKG as follows: Interpretation: Sinus Rhythm Comments: Normal sinus rhythm, rate of 91 bpm, OH interval 142 ms, QRS duration 84 ms, no acute ST elevation, no acute infarct noted. Treatment and Re-Evaluation :: All radiologic examinations were read, reviewed by the emergency department attending. From these reads, a plan of care will be put in place. Patient is alert and oriented, poor historian. Patient presents to the emerged part with her for weakness over the last week, intermittent abdominal pain, constipation as well as difficulty ambulating. Patient did receive a full abdominal work-up, I am concerned for mass secondary to history of cancer, obstruction. Patient did have abnormal labs. Patient CBC showed a leukocytosis with a white blood count of 18.7. Patient's chemistries showed a severe low sodium at 112. This would describe explain the patient's significant weakness. Patient is currently on antibiotics for concern of diverticulitis. Patient's urinalysis was negative for any infection. Patient did receive a two-view chest x-ray interpreted by ER physician which was negative. Patient's CT scan of the abdomen pelvis showed a stable 5 cm right adrenal mass. A large bowel ileus. Over distended urinary bladder. Secondary to this read of the CAT scan, I did speak with Dr. Ordoñez of surgery, he does not see an obstruction at this time however he will be on the case when the patient is admitted. I spoke with Dr. Alex and discussed the case, patient will be admitted. <Dr. Giancarlo Solomon, DO - Last Filed: 10/10/22 17:01> [facility] Narrative Medical decision making narrative: Patient is alert and oriented, poor historian. Patient presents to the emerged part with her for weakness over the last week, intermittent abdominal pain, constipation as well as difficulty ambulating. Patient did receive a full abdominal work-up, I am concerned for mass secondary to history of cancer, obstruction. Patient did have abnormal labs. Patient CBC showed a leukocytosis with a white blood count of 18.7. Patient's chemistries showed a severe low sodium at 112. This would describe explain the patient's significant weakness. Patient is currently on antibiotics for concern of diverticulitis. Patient's urinalysis was negative for any infection. Patient did receive a two-view chest x-ray interpreted by ER physician which was negative. Patient's CT scan of the abdomen pelvis showed a stable 5 cm right adrenal mass. A large bowel ileus. Over distended urinary bladder. Secondary to this read of the CAT scan, I did speak with Dr. Ordoñez of surgery, he does not see an obstruction at this time however he will be on the case when the patient is admitted. I spoke with Dr. Alex and discussed the case, patient will be admitted. This patient was seen with a PA/WOUND TREATMENT RN Individually assessed they patient including history and physical. I have reviewed everything on the chart that is available and agree with the documentation provided by the PA/WOUND TREATMENT RN including discussion about the assessment, treatment plan, discussion, and return precautions. Patient presenting with constipation and as well as confusion and weakness. She almost fell at home. Motor was obtained and shows a significant leukocytosis as well as a sodium of 112 which would explain why she fell. Is not a source of infection although the patient was previously diagnosed with diverticulitis. CT of the abdomen pelvis does show what that radiologist called large bowel ileus. The CT was reviewed with Dr. Ordoñez who did not think there is anything emergently surgical. Given the weakness, hyponatremia she was admitted to the hospitalist. Lab Data Labs: Laboratory Results - last 24 hr 10/10/22 10/10/22 10/10/22 13:33 13:33 13:33 WBC 18.7 H RBC 4.39 Hgb 12.1 Hct 33.8 L MCV 77.0 L MCH 27.6 MCHC 35.8 RDW Std Deviation 43.7 RDW Coeff of Ricardo 15.5 H Plt Count 244 MPV 7.9 Immature Gran % (Auto) 1.100 H Neut % (Auto) 78.2 H Lymph % (Auto) 13.2 L Swain % (Auto) 7.3 Eos % (Auto) 0.0 Baso % (Auto) 0.2 Absolute Neuts (auto) 14.6 H Absolute Lymphs (auto) 2.48 Nucleated RBC % 0 Sodium 112 L* Potassium 3.8 Chloride 76 L Carbon Dioxide 26.0 Anion Gap 10 BUN 15 Creatinine 0.64 Estim Creat Clear Calc 75.68 Est GFR (MDRD) Af Amer 120 Est GFR (MDRD) Non-Af 99 BUN/Creatinine Ratio 23.4 H Glucose 201 H Calcium 8.7 Magnesium 2.0 Total Bilirubin 0.50 AST 24 ALT 22 Alkaline Phosphatase 114 Troponin I High Sens 8 Total Protein 7.2 Albumin 3.1 L Globulin 4.1 Albumin/Globulin Ratio 0.8 L Lipase 47 Urine Color Urine Clarity Urine pH Ur Specific [place] Urine Protein Urine Glucose (UA) Urine Ketones Urine Occult Blood Urine Nitrite Urine Bilirubin Urine Urobilinogen Ur Leukocyte Esterase Urine RBC Urine WBC Ur Squamous Epith Cells Urine Bacteria Urine Mucus Urine Osmolality 10/10/22 10/10/22 15:28 15:28 WBC RBC Hgb Hct MCV MCH MCHC RDW Std Deviation RDW Coeff of Ricardo Plt Count MPV Immature Gran % (Auto) Neut % (Auto) Lymph % (Auto) Swain % (Auto) Eos % (Auto) Baso % (Auto) Absolute Neuts (auto) Absolute Lymphs (auto) Nucleated RBC % Sodium Potassium Chloride Carbon Dioxide Anion Gap BUN Creatinine Estim Creat Clear Calc Est GFR (MDRD) Af Amer Est GFR (MDRD) Non-Af BUN/Creatinine Ratio Glucose Calcium Magnesium Total Bilirubin AST ALT Alkaline Phosphatase Troponin I High Sens Total Protein Albumin Globulin Albumin/Globulin Ratio Lipase Urine Color Yellow Urine Clarity Clear Urine pH 7.0 Ur Specific [place] 1.005 Urine Protein 15 H Urine Glucose (UA) 100 H Urine Ketones Negative Urine Occult Blood Negative Urine Nitrite Negative Urine Bilirubin Negative Urine Urobilinogen Normal Ur Leukocyte Esterase 25 H Urine RBC 0 SEEN Urine WBC 0-5 SEEN Ur Squamous Epith Cells 0-5 SEEN Urine Bacteria 0 SEEN Urine Mucus 0 SEEN Urine Osmolality 251 Radiography Diagnostic Testing: Clinical Impression(s) from Imaging Studies Abdomen/Pelvis CT 10/10/22 13:18 IMPRESSION: 1. Stable 5 cm right adrenal mass. 2. Large bowel ileus. 3. Over distended urinary bladder. Electronically Signed: David Pickering MD at 15:47 EDT , All radiologic examinations were read, reviewed by the emergency department attending. From these reads, a plan of care will be put in place. Discharge Plan Triage Chief Complaint: Weakness Other Complaint: Fall ED Midlevel Provider: Alden Mejia ED Provider: Giancarlo Solomon Dx/Rx/DC Orders Clinical Impression: Acute hyponatremia, Ileus, Weakness, Constipation, Leukocytosis Primary Care Provider: Robb Banda Disposition Disposition: Acute Care Hospital
[2022-10-10] MEDS: 0.9% Normal Saline 1,000 ML 1000 ML IV (13:53)
[2022-10-10] MEDS: Ondansetron 4 MG/2 ML Vial IV (13:53)
[2022-10-10 14:04] LABS: Absolute Lymphocyte Count 2.48 X10^3/uL (0.83-4.51); Absolute Neutrophil Count 14.6 X10^3/uL (2.0-7.7); Basophil# 0.03 X10^3/uL; Basophil% 0.2 % (0-1); Hematocrit 33.8 % (37-47); Hemoglobin 12.1 g/dL (12.0-15.0); Lymphocyte # 2.48 X10^3/ul (0.83-4.51); Lymphocyte % 13.2 % (19-41); Mean Corp Hgb Conc 35.8 g/dL (32-36); Mean Corpuscular Hgb 27.6 pg (27.0-32.0); Mean Platelet Vol. 7.9 fl (6.2-12.0); Monocyte# 1.37 X10^3/uL; Monocyte% 7.3 % (0-10); NRBC Flagged by Analyzer 0 % (0-5); Neutrophil # 14.63 X10^3/uL (2.7-7.7); Neutrophil % 78.2 % (47-70); Platelet Count 244 K/mm3 (150-450); RBC Distribution Width CV 15.5 % (11.6-14.6); RBC Distribution Width SD 43.7 fl (35.1-43.9); Red Blood Count 4.39 M/mm3 (4.2-5.4); White Blood Count 18.7 K/mm3 (4.4-11.0)
[2022-10-10 14:41] LABS: ALB/GLOB Ratio 0.8 RATIO (0.9-2.4); AST(SGOT) 24 U/L (15-37); Alanine Aminotransfer ALT/SGPT 22 U/L (13-56); Albumin, Serum 3.1 g/dL (3.2-5.0); Alkaline Phosphatase 114 U/L (45-117); Anion Gap 10 (5-15); BUN 15 mg/dL (7-18); BUN/Creat Ratio 23.4 RATIO (10-20); Calcium,Total 8.7 mg/dL (8.5-10.1); Chloride 76 mmol/L (98-107); Creatinine, Serum 0.64 mg/dL (0.55-1.02); EST Glomerular Filtration Rate 99 mL/min (>60); Est Glom Filt Rate - Afr Amer 120 mL/min (>60); Estimated Creatinine Clearance 75.68 ml/min; Globulin 4.1 g/dL (2.2-4.2); Glucose 201 mg/dL (74-106); Lipase 47 U/L (13-75); Potassium 3.8 mmol/L (3.5-5.1); Protein, Total 7.2 g/dL (6.4-8.2); Sodium Level 112 mmol/L (136-145)
--- NOTE | 2022-10-10 14:43 | EKG12_ITS ---
Test Reason : Blood Pressure : / mmHG Vent. Rate : 091 BPM Atrial Rate : 091 BPM P-R Int : 142 ms QRS Dur : 084 ms QT Int : 386 ms P-R-T Axes : 006 -40 054 degrees QTc Int : 474 ms Normal sinus rhythm Left axis deviation Moderate voltage criteria for LVH, may be normal variant ( R in aVL , José Miguel product ) Nonspecific T wave abnormality Abnormal ECG Confirmed by MILLIE WHITTINGTON, EDENILSON ([id number]), editorial manager BRENDA WORLEY ([id number]) on 10/11/2022 10:19:02 AM Referred By: SUJEY Confirmed By:EDENILSON PINTO MD
--- NOTE | 2022-10-10 15:00 | RAD_ITS ---
EXAM: XR CHEST, 2 VIEWS CLINICAL INDICATION: cough TECHNIQUE: Frontal and lateral views of the chest. COMPARISON: XR Chest dated 03/03/2022 FINDINGS: LUNGS AND PLEURAL SPACES: Normal. No consolidation or edema. No pneumothorax. No effusion. HEART: Normal heart size. MEDIASTINUM: No mediastinal or hilar mass. BONES/JOINTS: No acute abnormality. SOFT TISSUES: Left axillary surgical clips. TUBES, LINES AND DEVICES: Right peripherally inserted central catheter (PICC) tip in the mid superior vena cava. RAD/Chest PA and Lateral IMPRESSION: No acute cardiopulmonary abnormality. Electronically Signed: David Pickering MD at 15:52 EDT ,
[2022-10-10 15:19] LABS: Troponin-I HS 8 pg/mL (3.0-54.0)
[2022-10-10 15:38] LABS: Bacteria 0 SEEN /hpf (None Seen); Mucous, Urine 0 SEEN /hpf (<or=2+); Red Blood Cells-Urine 0 SEEN /hpf (0-5)
[2022-10-10 15:40] LABS: Color, Urine Yellow (Yellow); Glucose, Dipstick 100 mg/dl (Normal); Ketone-Dipstick Negative (Negative); Leukocyte Esterase-Dipstick 25 /ul (Negative); Nitrite-Dipstick Negative (Negative); Occult Blood-Urine Negative /ul (Negative); Protein-Dipstick 15 mg/dl (Negative); Specific Gravity, Urine 1.005 (1.002-1.030); Urine Bilirubin Dipstick Negative (Negative); Urine Clarity Clear (Clear); Urine Urobilinogen Normal (Normal)
[2022-10-10 15:48] LABS: Squamous Epithelial Cells - UA 0-5 SEEN /hpf (5-10); White Blood Cells 0-5 SEEN /hpf (0-5)
[2022-10-10 15:54] LABS: Osmolality, Urine 251 mOsm/KG
--- NOTE | 2022-10-10 16:16 | PCM.HP.STD ---
[facility] - General General Date of Admission: 10/10/22 Date of Service: 10/10/22 Chief Complaint: Altered mental status, lethargy, generalized weakness for 1 week. HPI Narrative MICHELET DAILY, is a 67 F with history of CA breast on immunotherapy every 3 weeks and anastrozole came to ED for generalized weakness, lethargy, somnolence sleeping for 12 hours last 1 week. Patient has baseline amnesia, memory issues possible dementia as per but she is lethargic drowsy not acting herself, incoherent speech and does not answer questions appropriately for last 1 week. Patient also fell down softly about 3 times without major injury yesterday and 1 time today. She has mild skin bruise over left posterior arm. She did not had bowel movement for 2 weeks and as per she had flatus yesterday. She is neurologically slow and not understanding well as per . In ED, the patient was found to have very low sodium 112. Urine osmolarity 251. Chloride 76, potassium 3.8. BUNs/creatinine ratio 23, BUN and creatinine normal. CT abdomen individually reviewed and reviewed with the surgeon. Details mentioned in assessment plan. Laboratory Results 10/10/22 13:33: WBC 18.7 H, RBC 4.39, Hgb 12.1, Hct 33.8 L, MCV 77.0 L, MCH 27.6, MCHC 35.8, RDW Std Deviation 43.7, RDW Coeff of Ricardo 15.5 H, Plt Count 244, MPV 7.9, Immature Gran % (Auto) 1.100 H, Neut % (Auto) 78.2 H, Lymph % (Auto) 13.2 L, Kane % (Auto) 7.3, Eos % (Auto) 0.0, Baso % (Auto) 0.2, Absolute Neuts (auto) 14.6 H, Absolute Lymphs (auto) 2.48, Nucleated RBC % 0 10/10/22 13:33: Sodium 112 L*, Potassium 3.8, Chloride 76 L, Carbon Dioxide 26.0, Anion Gap 10, BUN 15, Creatinine 0.64, Estim Creat Clear Calc 75.68, Est GFR (MDRD) Af Amer 120, Est GFR (MDRD) Non-Af 99, BUN/Creatinine Ratio 23.4 H, Glucose 201 H, Calcium 8.7, Total Bilirubin 0.50, AST 24, ALT 22, Alkaline Phosphatase 114, Total Protein 7.2, Albumin 3.1 L, Globulin 4.1, Albumin/Globulin Ratio 0.8 L, Lipase 47 10/10/22 13:33: Magnesium 2.0, Troponin I High Sens 8 10/10/22 15:28: Urine Color Yellow, Urine Clarity Clear, Urine pH 7.0, Ur Specific [place] 1.005, Urine Protein 15 H, Urine Glucose (UA) 100 H, Urine Ketones Negative, Urine Occult Blood Negative, Urine Nitrite Negative, Urine Bilirubin Negative, Urine Urobilinogen Normal, Ur Leukocyte Esterase 25 H, Urine RBC 0 SEEN, Urine WBC 0-5 SEEN, Ur Squamous Epith Cells 0-5 SEEN, Urine Bacteria 0 SEEN, Urine Mucus 0 SEEN 10/10/22 15:28: Urine Osmolality 251 10/10/22 16:45: Phosphorus Pending, Magnesium Pending 10/10/22 16:45: Serum Osmolality Pending [facility] Medical History Adrenal disorder Anxiety and depression Bone fracture Breast lump Cyst GERD (gastroesophageal reflux disease) Heart murmur Neuropathy Osteoarthritis Psoriatic arthritis Seasonal allergies Skin cancer STD (female) Type 2 diabetes mellitus Vision problem Home Medications amoxicillin 875 mg-potassium clavulanate 125 mg tablet 1 tab PO BID 10/10/22 [History Last Taken Unknown] anastrozole 1 mg tablet 1 mg PO DAILY 10/10/22 [History Last Taken Unknown] atorvastatin 40 mg tablet 40 mg PO QHS 10/10/22 [History Last Taken Unknown] citalopram 20 mg tablet 20 mg PO DAILY 10/10/22 [History Last Taken Unknown] citicoline 500 mg capsule ([employer]) 500 mg PO DAILY 10/10/22 [History Last Taken Unknown] gabapentin 300 mg capsule 300 mg PO QHS 10/10/22 [History Last Taken Unknown] insulin glargine 100 unit/mL (3 mL) subcutaneous pen (Basaglar KwikPen U-100 Insulin) 46 unit subcut QPM 10/10/22 [History Last Taken Unknown] insulin lispro 100 unit/mL subcutaneous pen 10 unit subcut BIDAC 10/10/22 [History Last Taken Unknown] lisinopril 10 mg-hydrochlorothiazide 12.5 mg tablet 1 tab PO DAILY 10/10/22 [History Last Taken Unknown] magnesium oxide 400 mg PO DAILY 10/10/22 [History Last Taken Unknown] grllreiutvxs-sopgghst-mqroigh-folic acid 400 mcg-vit K1 20 mcg tablet (Women's 50 Plus Advanced) 1 tab PO DAILY 10/10/22 [History Last Taken Unknown] omeprazole 40 mg capsule,delayed release 40 mg PO DAILY 10/10/22 [History Last Taken Unknown] polyethylene glycol 3350 17 gram/dose oral powder (Miralax) 17 g PO DAILY 10/10/22 [History Last Taken Unknown] potassium chloride 20 mEq tablet,extended release 20 meq PO BID 10/10/22 [History Last Taken Unknown] promethazine 25 mg tablet 25 mg PO Q6H PRN Nausea 10/10/22 [History Last Taken Unknown] Allergy/AdvReac Type Severity Reaction Status Date / Time Penicillins [PCN] Allergy Other Verified 10/10/22 12:57 niacin AdvReac Other Verified 10/10/22 12:57 Family History Mother Anxiety Cancer Father Diabetes Surgical History H/O dilation and curettage Social History household members: spouse Smoking Status: Never smoker alcohol intake: current substance use type: does not use additional social history: DOES USE ASPIRIN DOES USE IBUPROFEN ROS ROS Narrative 14 system ROS incomplete/unobtainable as patient is lethargic, she does not answer the question but states something else or circumferential/tangential. Denies burning micturition. Acute urine retention. Patient had a straight cath and after that second time she had spontaneous voiding about 500 mL clear urine. Vital Signs Vital Signs Vital Signs: 10/10/22 12:57 10/10/22 13:37 10/10/22 15:34 Temperature 97.6 F L Temperature Source Temporal Pulse Rate 104 H Respiratory Rate 18 18 Respiratory Effort Normal Non-Labored Respiratory Pattern Normal Blood Pressure 133/74 H Blood Pressure Mean 93 Pulse Ox 99 Oxygen Delivery Method Room Air Room Air Weight Weight: 166 lb 10.711 oz Body Mass Index (BMI) 28.5 Physical Exam Narrative Physical exam General: Awake, weak and lethargic fatigue. Oriented x3. HEENT: Atraumatic, PERRLA, EOMI, Normocephalic Oral: Oral mucosa very dry. No Gingival or Mucosal Lesions/ Ulcerations Neck: Supple, No JVD, Negative Carotid Bruits Lungs: Air entry diminished in bilateral lung bases. No crepitation/rhonchi Cardiovascular: Regular rate, Regular Rhythm, Normal S1, Normal S2, No murmurs Abdomen: Bowel Sounds absent. Soft, mild tenderness over LLQ. Mild distended left side. : Acute bladder retention/bladder lump. No renal angle tenderness. No suprapubic tenderness. Extremities: No edema, Capillary Refill Less than 3 Seconds Skin: Small skin bruise over left arm posterior. Bilateral mastectomy. Musculoskeletal: No Tenderness to Palpation of Joints or Extremities Neurological: Cranial nerves II-XII grossly intact, DTR 2/4, muscle strength 4+/5 at knee and hip joints. Psych/Mental Status: Flat affect, amnesia answers question tangentially/circumstantially Results Lab / Micro Data Result Diagrams: 10/10/22 13:33 10/10/22 13:33 Labs: Laboratory Results - last 24 hr 10/10/22 13:33: WBC 18.7 H, RBC 4.39, Hgb 12.1, Hct 33.8 L, MCV 77.0 L, MCH 27.6, MCHC 35.8, RDW Std Deviation 43.7, RDW Coeff of Ricardo 15.5 H, Plt Count 244, MPV 7.9, Immature Gran % (Auto) 1.100 H, Neut % (Auto) 78.2 H, Lymph % (Auto) 13.2 L, Kane % (Auto) 7.3, Eos % (Auto) 0.0, Baso % (Auto) 0.2, Absolute Neuts (auto) 14.6 H, Absolute Lymphs (auto) 2.48, Nucleated RBC % 0 10/10/22 13:33: Sodium 112 L*, Potassium 3.8, Chloride 76 L, Carbon Dioxide 26.0, Anion Gap 10, BUN 15, Creatinine 0.64, Estim Creat Clear Calc 75.68, Est GFR (MDRD) Af Amer 120, Est GFR (MDRD) Non-Af 99, BUN/Creatinine Ratio 23.4 H, Glucose 201 H, Calcium 8.7, Total Bilirubin 0.50, AST 24, ALT 22, Alkaline Phosphatase 114, Total Protein 7.2, Albumin 3.1 L, Globulin 4.1, Albumin/Globulin Ratio 0.8 L, Lipase 47 10/10/22 13:33: Magnesium 2.0, Troponin I High Sens 8 10/10/22 15:28: Urine Color Yellow, Urine Clarity Clear, Urine pH 7.0, Ur Specific [place] 1.005, Urine Protein 15 H, Urine Glucose (UA) 100 H, Urine Ketones Negative, Urine Occult Blood Negative, Urine Nitrite Negative, Urine Bilirubin Negative, Urine Urobilinogen Normal, Ur Leukocyte Esterase 25 H, Urine RBC 0 SEEN, Urine WBC 0-5 SEEN, Ur Squamous Epith Cells 0-5 SEEN, Urine Bacteria 0 SEEN, Urine Mucus 0 SEEN 10/10/22 15:28: Urine Osmolality 251 Radiology Impression Abdomen/Pelvis CT 10/10/22 13:18 IMPRESSION: 1. Stable 5 cm right adrenal mass. 2. Large bowel ileus. 3. Over distended urinary bladder. Electronically Signed: David Pickering MD at 15:47 EDT , Assessment & Plan Assessment/Plan (1) Ileus: (2) Chronic hyponatremia: (3) Constipation: PLAN: Plan This is 67-year-old female is being admitted for came to ED for increased weakness lethargy and multiple falls. 1. Chronic severe hypotonic hypovolemic hyponatremia: Patient has mild to moderate neurological symptoms including lethargy, confused and somnolent but did not had seizure. Patient is being admitted in PCU after she completes hypertonic saline in ED. Her serum sodium is 112. Discussed with the floral designer salesperson, Dr. Cantu and consulted. Monitor sodium after hypertonic saline and then every 4 hourly. Serum magnesium normal, phosphorus low 2.4. Serum potassium 3.8 low normal. IV potassium phosphate ordered. Serum osmolarity 246 low. Urine osmolarity 251. CT head without contrast ordered. 2. Colonic ileus with severe constipation with recent diverticulitis: Patient probably passed flatus yesterday. CT abdomen individually reviewed and with surgeon. Shows gaseous distention of transverse colon, large bowel ileus. Overdistended tenderness bladder. Right side of colon is noted with feces. Small gas in rectum. Surgeon Dr. Ordoñez is consulted. Clear liquid. Soapsuds enema now. Dulcolax suppository from tomorrow AM for 3 days. She has leukocytosis 18.7 thousand but denies any fever, cough, other URI symptoms. She is on antibiotic amoxicillin started about 12 for 10 days for diverticulitis but unclear about the exact start date and anterior. I will start on Levaquin and Flagyl. 3. CA breast status postchemotherapy and then bilateral mastectomy surgery in May 2022. Patient followed Dr. Kong but he has retired now. Patient on immunotherapy every 3 weeks and takes anastrozole. Hold anastrozole. CT shows a stable 5 cm right renal mass. It is unclear whether it is neoplastic but this needs to be something followed as an outpatient with oncology as she has a history of breast cancer. 4. Diabetes mellitus type 2 with diabetic neuropathy: Clear liquid diet. Accu-Chek every 6 hourly incorrigible of sliding scale. Glucose in BMP is 201. 5. Other chronic comorbidities include psoriatic arthritis, anxiety and depression, dyslipidemia, GERD and chronic normocytic normochromic anemia: Her hemoglobin and hematocrit in normal range 12.1/33.8%. DVT prophylaxis, high risk in view of cancer breast. Lovenox 40 mg subcu daily. Laboratory Results 10/10/22 13:33: WBC 18.7 H, RBC 4.39, Hgb 12.1, Hct 33.8 L, MCV 77.0 L, MCH 27.6, MCHC 35.8, RDW Std Deviation 43.7, RDW Coeff of Ricardo 15.5 H, Plt Count 244, MPV 7.9, Immature Gran % (Auto) 1.100 H, Neut % (Auto) 78.2 H, Lymph % (Auto) 13.2 L, Kane % (Auto) 7.3, Eos % (Auto) 0.0, Baso % (Auto) 0.2, Absolute Neuts (auto) 14.6 H, Absolute Lymphs (auto) 2.48, Nucleated RBC % 0 10/10/22 13:33: Sodium 112 L*, Potassium 3.8, Chloride 76 L, Carbon Dioxide 26.0, Anion Gap 10, BUN 15, Creatinine 0.64, Estim Creat Clear Calc 75.68, Est GFR (MDRD) Af Amer 120, Est GFR (MDRD) Non-Af 99, BUN/Creatinine Ratio 23.4 H, Glucose 201 H, Calcium 8.7, Total Bilirubin 0.50, AST 24, ALT 22, Alkaline Phosphatase 114, Total Protein 7.2, Albumin 3.1 L, Globulin 4.1, Albumin/Globulin Ratio 0.8 L, Lipase 47 10/10/22 13:33: Magnesium 2.0, Troponin I High Sens 8 10/10/22 15:28: Urine Color Yellow, Urine Clarity Clear, Urine pH 7.0, Ur Specific [place] 1.005, Urine Protein 15 H, Urine Glucose (UA) 100 H, Urine Ketones Negative, Urine Occult Blood Negative, Urine Nitrite Negative, Urine Bilirubin Negative, Urine Urobilinogen Normal, Ur Leukocyte Esterase 25 H, Urine RBC 0 SEEN, Urine WBC 0-5 SEEN, Ur Squamous Epith Cells 0-5 SEEN, Urine Bacteria 0 SEEN, Urine Mucus 0 SEEN 10/10/22 15:28: Urine Osmolality 251 10/10/22 16:45: Phosphorus 2.4 L, Magnesium 1.9 10/10/22 16:45: Serum Osmolality 246 L Clinical Impression(s) from Imaging Studies Abdomen/Pelvis CT 10/10/22 13:18
[2022-10-10] MEDS: Sodium Cl 3% 500 ML 200 ML IV (17:01)
[2022-10-10 17:10] LABS: Magnesium 1.9 mg/dL (1.6-2.6); Phosphorus 2.4 mg/dL (2.5-4.9)
[2022-10-10 17:11] LABS: Osmolality, Serum 246 mOsm/KG (280-301)
--- NOTE | 2022-10-10 17:24 | CON.PCM.SX_ITS ---
Assessment & Plan Assessment/Plan (1) Constipation: (2) Ileus: PLAN: This is a 67-year-old female with past medical history as enumerated in HPI who presents due to progressive weakness and ground-level fall, but is also evaluated due to CT findings of colonic ileus and patient reports of no bowel movement x2 weeks. Unfortunately patient is a poor historian, but I am able to piece together that she has been severely constipated and recently treated for clinical diagnosis of diverticulitis. However, in my exam of the patient I do not elicit any abdominal tenderness with palpation of any quadrant. Further, in my independent review of the CT imaging I do not identify any diverticula within the sigmoid colon which appears significantly decompressed compared to the more proximal large bowel. Patient appears to have impacted stool within the right colon, but distally there does not appear to be any signs of obstruction?hardy russell is taken from the fact that I visualize air within the rectal vault. Therefore recommend the following: ? Repletion of electrolytes as per medicine (it should have secondary benefit to help normalize colonic motility ? Limit opiate pain medication ? Patient cleared to receive up to clear liquid diet without carbonation from surgical standpoint ? Soapsuds enemas twice daily scheduled ? Do not see reason to treat with antibiotics at this phase from an abdominal standpoint given exam and CT appearances ? Trend abdominal exams ? Remainder of care per hospitalist service HPI Consult Data Date of Consult: 10/10/22 HPI Narrative HPI Narrative: MICHELET DAILY, is a 67 F, with a past medical history of breast cancer status postmastectomy and currently receiving immunotherapy treatments, who presents from home due to ground-level fall and generalized weakness. She also reports significant memory difficulties. I was asked initially by emergency medicine to review patient's CT imaging of the abdomen pelvis to provide a second opinion from radiology as to whether or not patient demonstrates any concern for distal colonic obstruction per CT imaging. I did not feel there was, but in the interim I have been asked to see patient in consultation by Dr. Alex. Unfortunately patient's is just departed the room and patient herself is a poor historian. She is able to report that she has not had a bowel movement in the last 2 weeks. She denies any abnormalities to her bowel movements 2 weeks ago including no blood. Previous to this she reports a bowel movement frequency of 3 times per week. She denies any present nausea or vomiting. She does not believe that she has been on any pain medication. It is reported to me through patient's admitting attending that he was able to elicit a history of a unremarkable colonoscopy approximately 2 to 3 years ago. He also states that the patient was recently prescribed amoxicillin for a clinical diagnosis of diverticulitis per her PCP. [facility] Medical History Adrenal disorder Anxiety and depression Bone fracture Breast lump Cyst GERD (gastroesophageal reflux disease) Heart murmur Neuropathy Osteoarthritis Psoriatic arthritis Seasonal allergies Skin cancer STD (female) Type 2 diabetes mellitus Vision problem Home Medications amoxicillin 875 mg-potassium clavulanate 125 mg tablet 1 tab PO BID 10/10/22 [History Last Taken Unknown] anastrozole 1 mg tablet 1 mg PO DAILY 10/10/22 [History Last Taken Unknown] atorvastatin 40 mg tablet 40 mg PO QHS 10/10/22 [History Last Taken Unknown] citalopram 20 mg tablet 20 mg PO DAILY 10/10/22 [History Last Taken Unknown] citicoline 500 mg capsule (HOSTEX) 500 mg PO DAILY 10/10/22 [History Last Taken Unknown] gabapentin 300 mg capsule 300 mg PO QHS 10/10/22 [History Last Taken Unknown] insulin glargine 100 unit/mL (3 mL) subcutaneous pen (Basaglar KwikPen U-100 Ins ulin) 46 unit subcut QPM 10/10/22 [History Last Taken Unknown] insulin lispro 100 unit/mL subcutaneous pen 10 unit subcut BIDAC 10/10/22 [History Last Taken Unknown] lisinopril 10 mg-hydrochlorothiazide 12.5 mg tablet 1 tab PO DAILY 10/10/22 [History Last Taken Unknown] magnesium oxide 400 mg PO DAILY 10/10/22 [History Last Taken Unknown] bfrpzgujdlhc-eakbjwjf-uprkmgw-folic acid 400 mcg-vit K1 20 mcg tablet (Women's 50 Plus Advanced) 1 tab PO DAILY 10/10/22 [History Last Taken Unknown] omeprazole 40 mg capsule,delayed release 40 mg PO DAILY 10/10/22 [History Last Taken Unknown] polyethylene glycol 3350 17 gram/dose oral powder (Miralax) 17 g PO DAILY 10/10/22 [History Last Taken Unknown] potassium chloride 20 mEq tablet,extended release 20 meq PO BID 10/10/22 [History Last Taken Unknown] promethazine 25 mg tablet 25 mg PO Q6H PRN Nausea 10/10/22 [History Last Taken Unknown] Allergy/AdvReac Type Severity Reaction Status Date / Time Penicillins [PCN] Allergy Other Verified 10/10/22 12:57 niacin AdvReac Other Verified 10/10/22 12:57 Family History Mother Anxiety Cancer Father Diabetes Surgical History H/O dilation and curettage Social History household members: spouse Smoking Status: Never smoker alcohol intake: current substance use type: does not use additional social history: DOES USE ASPIRIN DOES USE IBUPROFEN Physical Exam Const alert and no apparent distress Constitutional Narrative: Oriented to person and place General Appearance: cooperative Orientation / Consciousness: confused Nutritional Appearance: overweight Resp normal respiratory effort GI GI Narrative: No scars evident. Mildly distended, soft, nontender to palpation x4 quadrants with light and deep palpation. No masses palpated. Lab / Micro Data Result Diagrams: 10/10/22 13:33 10/10/22 13:33 Labs: Laboratory Results - last 24 hr 10/10/22 13:33: WBC 18.7 H, RBC 4.39, Hgb 12.1, Hct 33.8 L, MCV 77.0 L, MCH 27.6, MCHC 35.8, RDW Std Deviation 43.7, RDW Coeff of Ricardo 15.5 H, Plt Count 244, MPV 7.9, Immature Gran % (Auto) 1.100 H, Neut % (Auto) 78.2 H, Lymph % (Auto) 13.2 L, [facility] [facility] % (Auto) 7.3, Eos % (Auto) 0.0, Baso % (Auto) 0.2, Absolute Neuts (auto) 14.6 H, Absolute Lymphs (auto) 2.48, Nucleated RBC % 0 10/10/22 13:33: Sodium 112 L*, Potassium 3.8, Chloride 76 L, Carbon Dioxide 26.0, Anion Gap 10, BUN 15, Creatinine 0.64, Estim Creat Clear Calc 75.68, Est GFR (MDRD) Af Amer 120, Est GFR (MDRD) Non-Af 99, BUN/Creatinine Ratio 23.4 H, Glucose 201 H, Calcium 8.7, Total Bilirubin 0.50, AST 24, ALT 22, Alkaline Phosphatase 114, Total Protein 7.2, Albumin 3.1 L, Globulin 4.1, Albumin/Globu edwina Ratio 0.8 L, Lipase 47 10/10/22 13:33: Magnesium 2.0, Troponin I High Sens 8 10/10/22 15:28: Urine Color Yellow, Urine Clarity Clear, Urine pH 7.0, Ur Specific Eva 1.005, Urine Protein 15 H, Urine Glucose (UA) 100 H, Urine Ketones Negative, Urine Occult Blood Negative, Urine Nitrite Negative, Urine Bilirubin Negative, Urine Urobilinogen Normal, Ur Leukocyte Esterase 25 H, Urine RBC 0 SEEN, Urine WBC 0-5 SEEN, Ur Squamous Epith Cells 0-5 SEEN, Urine Bacteria 0 SEEN, Urine Mucus 0 SEEN 10/10/22 15:28: Urine Osmolality 251 10/10/22 16:45: Phosphorus 2.4 L, Magnesium 1.9 10/10/22 16:45: Serum Osmolality 246 L Radiology Impression Abdomen/Pelvis CT 10/10/22 13:18 IMPRESSION: 1. Stable 5 cm right adrenal mass. 2. Large bowel ileus. 3. Over distended urinary bladder. Electronically Signed: David Pickering MD at 15:47 EDT Reading Location ID and State: [address] [place] [address] Tel , Service support , Charges/Coding Visit Charges Inpatient E&M: 61221 Init Hosp L2
--- NOTE | 2022-10-10 17:34 | CT_ITS ---
INDICATION: AMS EXAMINATION: CT BRAIN - CT Head or Brain W/O Contrast Injection TECHNIQUE: Multiple axial images were obtained of the head without intravenous contrast. A radiation dose optimization technique was used for this scan. IV Contrast dosage and agent: None. COMPARISON: MRI brain November 02, 2019 FINDINGS: BRAIN PARENCHYMA: No intra- or extra-axial hemorrhage. No evidence of acute infarct. No intracranial mass or mass effect. There is preservation of the morales/white matter interface. Posterior fossa structures are unremarkable. CSF SPACES: Appropriate for age. No hydrocephalus. Basal cisterns are patent. CALVARIUM, SKULL BASE, PARANASAL SINUSES AND MASTOID AIR CELLS: Clear. No discrete lytic or blastic abnormalities. ORBITS: Both globes, extraocular muscles, optic nerves and retrobulbar fat appear unremarkable. Slight soft tissue swelling left vertex image [address]/Brain/Head without Contrast IMPRESSION: No acute intracranial hemorrhage or focal white matter abnormality. Mild left vertex superficial soft tissue swelling. No fracture. Electronically Signed: Sanchez Diaz MD at 18:08 EDT ,
[2022-10-10 18:40] LABS: Sodium Level 121 mmol/L (136-145)
[2022-10-10 18:46] LABS: Protein, Urine (Random) 8.6 mg/dL (<11.9); Protein:Creat Ratio 347 mg/g CRE (0-200); Urine Chloride 37 mmol/L (Not Establ.); Urine Sodium 29 mmol/L (Not Establ.)
[2022-10-10] MEDS: Desmopressin Acetate 4 MCG/ML Ampul 2 MCG IV (20:15)
[2022-10-10] MEDS: Enoxaparin 40 MG/0.4 ML Syringe SC (20:16)
[2022-10-10] MEDS: 0.9 % NaCl (Sterile) Posiflush 10 mL IV (20:19)
[2022-10-10 22:29] LABS: Sodium Level 118 mmol/L (136-145)
[2022-10-11] VITALS (21 sets, daily range): BP systolic 135–170; BP diastolic 69–103; PULSE 88–106; RESP 13–22; TEMP 36.1–36.9; O2SAT 18–100; BMI 28.6
[2022-10-11] MEDS: 0.9 % NaCl (Sterile) Posiflush 10 mL IV (03:41)
[2022-10-11 03:55] LABS: Absolute Lymphocyte Count 3.14 X10^3/uL (0.83-4.51); Absolute Neutrophil Count 10.8 X10^3/uL (2.0-7.7); Basophil# 0.02 X10^3/uL; Basophil% 0.1 % (0-1); Hematocrit 30.5 % (37-47); Hemoglobin 10.9 g/dL (12.0-15.0); Lymphocyte # 3.14 X10^3/ul (0.83-4.51); Lymphocyte % 20.5 % (19-41); Mean Corp Hgb Conc 35.7 g/dL (32-36); Mean Corpuscular Hgb 27.9 pg (27.0-32.0); Mean Corpuscular Volume 78.2 fL (81-99); Monocyte# 1.16 X10^3/uL; Monocyte% 7.6 % (0-10); NRBC Flagged by Analyzer 0 % (0-5); Neutrophil # 10.82 X10^3/uL (2.7-7.7); Neutrophil % 70.7 % (47-70); Platelet Count 204 K/mm3 (150-450); RBC Distribution Width CV 15.7 % (11.6-14.6); RBC Distribution Width SD 44.5 fl (35.1-43.9); White Blood Count 15.3 K/mm3 (4.4-11.0)
[2022-10-11 04:22] LABS: Anion Gap 9 (5-15); BUN 9 mg/dL (7-18); BUN/Creat Ratio 21.6 RATIO (10-20); Chloride 85 mmol/L (98-107); Creatinine, Serum 0.42 mg/dL (0.55-1.02); EST Glomerular Filtration Rate 162 mL/min (>60); Est Glom Filt Rate - Afr Amer 196 mL/min (>60); Estimated Creatinine Clearance 110.47 ml/min; Glucose 115 mg/dL (74-106); Potassium 3.4 mmol/L (3.5-5.1); Sodium Level 120 mmol/L (136-145); Thyroid Stim Hormone (TSH) 1.27 uIU/mL (0.358-3.74)
[2022-10-11 04:41] LABS: Magnesium 1.8 mg/dL (1.6-2.6); Phosphorus 2.5 mg/dL (2.5-4.9)
--- NOTE | 2022-10-11 07:02 | PCM.PN.HOSP ---
Reason for Visit Reason for Visit: Altered mental status/lethargy/generalized weakness Subjective Subjective Mrs. Munoz is a 67-year-old white female presents emergency department and was transferred on 10/10/2022 with generalized weakness, lethargy, and altered mental status that had been worsening for approximately 1 week prior to presentation. Upon admission reported that she had been lethargic and drowsy and had not been acting herself. She had had incoherent speech and was not answering questions appropriately for approximately 1 week. She also fell down about 3 times on the day prior to presentation and 1 time on the day of presentation without major injury. Her also reports she not had a bowel movement for 2 weeks but was passing flatus. Upon presentation her vital signs are stable however BMP revealed a sodium of 112, chloride of 76 and normal renal function. A CT of the abdomen pelvis was done and showed ileus with a stable adrenal nodule. She was admitted to the ICU and urine and serum osmolality were obtained. No urine sodium was obtained. The case was discussed with on-call surgery specialist and they recommended hypertonic saline and every 4 hour sodium levels. General surgery was consulted for her ileus and recommended clear liquids with soapsuds enemas and Dulcolax suppositories x3 days. She had previously been on amoxicillin for diverticulitis and was noted to have a white count on presentation so Levaquin and Flagyl was dosed as well. Her sodium is currently up to 120. Present at the time of my evaluation and states her mental status is much better than it was but not yet her baseline. She has not yet passing flatus. Initial enema has been giving repeat is still pending. Dulcolax is due as well. is concerned that she is not eating regular food and has not done so for a while. I assured him that as soon as it is appropriate we will start regular diet on her. She is tolerating clear liquids without any emesis or feelings of nausea. Objective Data Objective Data Vital Signs: Vital Signs Temp Pulse Resp BP Pulse Ox O2 Del Method 97.6 F L 93 16 156/78 H 93 Room Air 10/11/22 04:00 10/11/22 07:00 10/11/22 07:00 10/11/22 07:00 10/11/22 07:00 10/11/22 07:00 Oxygen Delivery Method Room Air Weight: 73.3 kg Body Mass Index (BMI) 28.6 Intake & Output: Intake and Output for Last 24 Hours 10/09/22 10/10/22 10/11/22 23:59 23:59 23:59 Intake Total 1866.67 / 1866.67 257 / 257 Output Total 1670 / 1670 0 / 0 Balance 196.67 / 196.67 257 / 257 Lab / Micro Data Result Diagrams: 10/11/22 03:45 10/11/22 03:45 Labs: Laboratory Results - last 24 hr 10/10/22 13:33: WBC 18.7 H, RBC 4.39, Hgb 12.1, Hct 33.8 L, MCV 77.0 L, MCH 27.6, MCHC 35.8, RDW Std Deviation 43.7, RDW Coeff of Ricardo 15.5 H, Plt Count 244, MPV 7.9, Immature Gran % (Auto) 1.100 H, Neut % (Auto) 78.2 H, Lymph % (Auto) 13.2 L, [place] % (Auto) 7.3, Eos % (Auto) 0.0, Baso % (Auto) 0.2, Absolute Neuts (auto) 14.6 H, Absolute Lymphs (auto) 2.48, Nucleated RBC % 0 10/10/22 13:33: Sodium 112 L*, Potassium 3.8, Chloride 76 L, Carbon Dioxide 26.0, Anion Gap 10, BUN 15, Creatinine 0.64, Estim Creat Clear Calc 75.68, Est GFR (MDRD) Af Amer 120, Est GFR (MDRD) Non-Af 99, BUN/Creatinine Ratio 23.4 H, Glucose 201 H, Calcium 8.7, Total Bilirubin 0.50, AST 24, ALT 22, Alkaline Phosphatase 114, Total Protein 7.2, Albumin 3.1 L, Globulin 4.1, Albumin/Globulin Ratio 0.8 L, Lipase 47 10/10/22 13:33: Magnesium 2.0, Troponin I High Sens 8 10/10/22 15:28: Urine Color Yellow, Urine Clarity Clear, Urine pH 7.0, Ur Specific [place] 1.005, Urine Protein 15 H, Urine Glucose (UA) 100 H, Urine Ketones Negative, Urine Occult Blood Negative, Urine Nitrite Negative, Urine Bilirubin Negative, Urine Urobilinogen Normal, Ur Leukocyte Esterase 25 H, Urine RBC 0 SEEN, Urine WBC 0-5 SEEN, Ur Squamous Epith Cells 0-5 SEEN, Urine Bacteria 0 SEEN, Urine Mucus 0 SEEN 10/10/22 15:28: Urine Osmolality 251 10/10/22 15:28: U Random Total Protein 8.6, Ur Random Sodium 29, Urine Creatinine 24.80, Protein/Creatinin Ratio 347 H, Urine Potassium 27.0, Urine Chloride 37 10/10/22 16:45: Phosphorus 2.4 L, Magnesium 1.9 10/10/22 16:45: Serum Osmolality 246 L 10/10/22 18:25: Sodium 121 L 10/10/22 22:00: Sodium 118 L* 10/11/22 03:45: WBC 15.3 H, RBC 3.90 L, Hgb 10.9 L, Hct 30.5 L, MCV 78.2 L, MCH 27.9, MCHC 35.7, RDW Std Deviation 44.5 H, RDW Coeff of Ricardo 15.7 H, Plt Count 204, MPV 8.0, Immature Gran % (Auto) 1.100 H, Neut % (Auto) 70.7 H, Lymph % (Auto) 20.5, [place] % (Auto) 7.6, Eos % (Auto) 0.0, Baso % (Auto) 0.1, Absolute Neuts (auto) 10.8 H, Absolute Lymphs (auto) 3.14, Nucleated RBC % 0 10/11/22 03:45: Sodium 120 L, Potassium 3.4 L, Chloride 85 L, Carbon Dioxide 26.0, Anion Gap 9, BUN 9, Creatinine 0.42 L, Estim Creat Clear Calc 110.47, Est GFR (MDRD) Af Amer 196, Est GFR (MDRD) Non-Af 162, BUN/Creatinine Ratio 21.6 H, Glucose 115 H, Calcium 8.0 L, TSH 1.27 10/11/22 03:45: Cortisol 26.20 H 10/11/22 03:45: Phosphorus 2.5, Magnesium 1.8 Radiography Diagnostic Testing: Radiology Impression Abdomen/Pelvis CT 10/10/22 13:18 IMPRESSION: 1. Stable 5 cm right adrenal mass. 2. Large bowel ileus. 3. Over distended urinary bladder. Electronically Signed: David Pickering MD at 15:47 EDT , Brain CT 10/10/22 17:34 IMPRESSION: No acute intracranial hemorrhage or focal white matter abnormality. Mild left vertex superficial soft tissue swelling. No fracture. Electronically Signed: Sanchez Diaz MD at 18:08 EDT , Physical Exam Const alert, oriented x3 and no apparent distress Constitutional Narrative: Upper middle-aged, white female, appears older than stated age, sitting up in a chair at the bedside, at the bedside visiting, appears comfortable and eating green Jell-O at this time HEENT head/scalp atraumatic and moist oral mucous membranes Head and Scalp: normocephalic Resp normal respiratory effort, no retractions, no use of accessory muscles and clear to auscultation bilaterally Auscultation: Negative for rales, rhonchi or wheezes Cardio regular rate, regular rhythm, S1 normal heart sound, S2 normal heart sound, no murmurs, no rub, no gallops and no clicks GI Negative for normal to inspection, nondistended, normoactive bowel sounds GI Narrative: Slight distention with hypoactive bowel sounds, abdomen is soft and nontender Extremity no clubbing, cyanosis or edema Extremity Narrative: Pedal pulses are 2+ Neuro moves all extremities and no focal motor deficits Neuro Narrative: Oriented to self and time but confused on current location Speech: speech normal Psych affect normal Psych Narrative: Very pleasant, interacts appropriately's time, no signs of lethargy Assessment & Plan Assessment/Plan (1) Acute hyponatremia: (2) Ileus: (3) Weakness: (4) Constipation: (5) Leukocytosis: (6) Muscle weakness: PLAN: Plan Acute hyponatremia -Last known sodium from 10/01/2022 was normal at 143 per discussion with nephrology -This means drop was quite precipitous -Oral intake has been low and patient is on hydrochlorothiazide as well as citalopram -Symptoms are improved and sodium is up to 120 -TSH and cortisol unremarkable -We will continue to hold HCTZ and citalopram -Serial sodiums have been ordered by nephrology with goal approximately 120 -Nephrology consult-appreciate input Ileus/constipation -General surgery is following -Enema yesterday was not productive of stool -Repeat enemas pending for today -Dulcolax is ordered as well -CT showed evidence of significant stool burden in the right colon -Continue clear liquid diet for now -Patient is starting to have flatus on reeval this afternoon -We will check a.m. magnesium and phosphorus level along with BMP Leukocytosis -Etiology is unclear -Was diagnosed with diverticulitis recently however per general surgery consultation they recommended discontinuing antibiotics with negative CT scan on admission -No diverticuli were appreciated on this imaging -Urine culture is pending but UA was not suggestive of urinary tract infection Generalized weakness -Suspect related to the severe hyponatremia -PT/OT/speech therapy consultations pending Anemia -Hold atorvastatin while patient with ileus Breast cancer -Continue anastrozole daily DM-2 -Hold home insulin as blood sugars are currently well controlled -Add sliding scale -At baseline patient is on Basaglar 46 units at at bedtime and lispro 10 units twice daily subcu -Accu-Cheks as ordered Hypertension -start enalaprilat 6.25 mg every 6 hours with hold parameters -Hold home lisinopril/HCTZ Diabetic neuropathy -Hold gabapentin until p.o. can be reinitiated GERD -Start IV Protonix 40 mg daily Anxiety/Depression -hold citalopram DVT prophylaxis -Continue subcu enoxaparin CODE STATUS Full code Charges/Coding Visit Charges Inpatient E&M: 46038 Subs Hosp L2
[2022-10-11] MEDS: Potassium Chloride 10mEq/100mL 10 MEQ/100 ML IV.SOLN. 200 MEQ IV BOLUS ×4 (08:14→10:07)
--- NOTE | 2022-10-11 08:18 | PCM.PN.SRG ---
Subjective Subjective Patient seen and examined during AM rounds. She denies any abdominal pain or nausea. She also reports ongoing confusion and believes that today is Tuesday. However, she shares that she knows she has dementia. Nursing shares that patient did not have a bowel movement in response to her soapsuds enema yesterday. Objective Data Objective Data Vital Signs: Vital Signs Temp Pulse Resp BP Pulse Ox O2 Del Method 97.6 F L 93 16 156/78 H 93 Room Air 10/11/22 04:00 10/11/22 07:00 10/11/22 07:00 10/11/22 07:00 10/11/22 07:00 10/11/22 07:00 Oxygen Delivery Method Room Air Weight: 161 lb 9.581 oz Body Mass Index (BMI) 28.6 Intake & Output: Intake and Output for Last 24 Hours 10/09/22 10/10/22 10/11/22 23:59 23:59 23:59 Intake Total 1866.67 / 1866.67 257 / 257 Output Total 1670 / 1670 0 / 0 Balance 196.67 / 196.67 257 / 257 Lab / Micro Data Result Diagrams: 10/11/22 03:45 10/11/22 03:45 Labs: Laboratory Results - last 24 hr 10/10/22 13:33: WBC 18.7 H, RBC 4.39, Hgb 12.1, Hct 33.8 L, MCV 77.0 L, MCH 27.6, MCHC 35.8, RDW Std Deviation 43.7, RDW Coeff of Ricardo 15.5 H, Plt Count 244, MPV 7.9, Immature Gran % (Auto) 1.100 H, Neut % (Auto) 78.2 H, Lymph % (Auto) 13.2 L, [place] % (Auto) 7.3, Eos % (Auto) 0.0, Baso % (Auto) 0.2, Absolute Neuts (auto) 14.6 H, Absolute Lymphs (auto) 2.48, Nucleated RBC % 0 10/10/22 13:33: Sodium 112 L*, Potassium 3.8, Chloride 76 L, Carbon Dioxide 26.0, Anion Gap 10, BUN 15, Creatinine 0.64, Estim Creat Clear Calc 75.68, Est GFR (MDRD) Af Amer 120, Est GFR (MDRD) Non-Af 99, BUN/Creatinine Ratio 23.4 H, Glucose 201 H, Calcium 8.7, Total Bilirubin 0.50, AST 24, ALT 22, Alkaline Phosphatase 114, Total Protein 7.2, Albumin 3.1 L, Globulin 4.1, Albumin/Globulin Ratio 0.8 L, Lipase 47 10/10/22 13:33: Magnesium 2.0, Troponin I High Sens 8 10/10/22 15:28: Urine Color Yellow, Urine Clarity Clear, Urine pH 7.0, Ur Specific [place] 1.005, Urine Protein 15 H, Urine Glucose (UA) 100 H, Urine Ketones Negative, Urine Occult Blood Negative, Urine Nitrite Negative, Urine Bilirubin Negative, Urine Urobilinogen Normal, Ur Leukocyte Esterase 25 H, Urine RBC 0 SEEN, Urine WBC 0-5 SEEN, Ur Squamous Epith Cells 0-5 SEEN, Urine Bacteria 0 SEEN, Urine Mucus 0 SEEN 10/10/22 15:28: Urine Osmolality 251 10/10/22 15:28: U Random Total Protein 8.6, Ur Random Sodium 29, Urine Creatinine 24.80, Protein/Creatinin Ratio 347 H, Urine Potassium 27.0, Urine Chloride 37 10/10/22 16:45: Phosphorus 2.4 L, Magnesium 1.9 10/10/22 16:45: Serum Osmolality 246 L 10/10/22 18:25: Sodium 121 L 10/10/22 22:00: Sodium 118 L* 10/11/22 03:45: WBC 15.3 H, RBC 3.90 L, Hgb 10.9 L, Hct 30.5 L, MCV 78.2 L, MCH 27.9, MCHC 35.7, RDW Std Deviation 44.5 H, RDW Coeff of Ricardo 15.7 H, Plt Count 204, MPV 8.0, Immature Gran % (Auto) 1.100 H, Neut % (Auto) 70.7 H, Lymph % (Auto) 20.5, [place] % (Auto) 7.6, Eos % (Auto) 0.0, Baso % (Auto) 0.1, Absolute Neuts (auto) 10.8 H, Absolute Lymphs (auto) 3.14, Nucleated RBC % 0 10/11/22 03:45: Sodium 120 L, Potassium 3.4 L, Chloride 85 L, Carbon Dioxide 26.0, Anion Gap 9, BUN 9, Creatinine 0.42 L, Estim Creat Clear Calc 110.47, Est GFR (MDRD) Af Amer 196, Est GFR (MDRD) Non-Af 162, BUN/Creatinine Ratio 21.6 H, Glucose 115 H, Calcium 8.0 L, TSH 1.27 10/11/22 03:45: Cortisol 26.20 H 10/11/22 03:45: Phosphorus 2.5, Magnesium 1.8 Radiography Diagnostic Testing: Radiology Impression Abdomen/Pelvis CT 10/10/22 13:18 IMPRESSION: 1. Stable 5 cm right adrenal mass. 2. Large bowel ileus. 3. Over distended urinary bladder. Electronically Signed: David Pickering MD at 15:47 EDT , Brain CT 10/10/22 17:34 IMPRESSION: No acute intracranial hemorrhage or focal white matter abnormality. Mild left vertex superficial soft tissue swelling. No fracture. Electronically Signed: Sanchez Diaz MD at 18:08 EDT , Physical Exam Const no apparent distress Constitutional Narrative: Oriented to person Resp normal respiratory effort GI GI Narrative: Nondistended, soft, nontender to palpation x4 quadrants Assessment & Plan Assessment/Plan (1) Ileus: PLAN: This 67-year-old female hospital day 2 for admission for weakness and cognitive impairment to presented additionally with colonic ileus. Enema yesterday was not productive. I believe this is secondary to the need for her stool burden to move a significant distance before she is able to have a bowel movement since her CT yesterday shows this stool burden impacted in the right colon. Patient's abdomen remains soft and benign today. Recommend continuing enema regimen for at least 2 additional enemas today. Would continue to restrict diet to clear liquid diet. Remainder of care per ICU and primary team. Charges/Coding Visit Charges Inpatient E&M: 62121 Subs Hosp L2
--- NOTE | 2022-10-11 09:29 | PCM.CONS.R ---
Documented by User: MARIE Melo 10/11/22 09:45 Assessment & Plan Assessment/Plan (1) Acute hyponatremia: PLAN: Plan This is a pleasant 67-year-old female with past medical history significant for breast cancer with bilateral mastectomy on immunotherapy every 3 weeks (last dose approximately 2 1/2 weeks ago), diabetes, hypertension who presented to the emergency room with complaints of constipation and weakness as well as confusion. Found to have a sodium of 112. Nephrology consulted. Initially patient received IV fluids, normal saline in the emergency room. Serum sodium was repeated about 5 hours later and resulted at 121. At that time patient received DDAVP and started on bolus D5W. About 5 hours later repeat serum sodium 118 and last sodium at 4 AM this morning resulted at 120, patient again received bolus D5W. Patient has hypovolemic hyponatremia with presumed normal baseline sodium. In February 2022 sodium was 143. Her urine sodium 29, urine osmolality 251 and serum Osmo low at 246. TSH is normal and cortisol slightly elevated at 26.20. Recommend continue holding citalopram and hydrochlorothiazide. We will continue monitoring serial sodiums as ordered with goal sodium this evening around 120. Potassium slightly low and patient is getting replacement. Surgery team following for questionable ileus, patient is on clear liquid diet. Thank you for allowing us to participate in the care of Ms. Daily, further orders forthcoming as hospitalization evolves. HPI Consult Data Date of Consult: 10/11/22 HPI Narrative HPI Narrative: MICHELET DAILY, is a 67 F with past medical history significant for diabetes mellitus type 2, breast cancer on immunotherapy every 3 weeks last dose received about 2 and half weeks ago, hypertension who was brought to the emergency room for evaluation of lethargy, constipation and altered mental status. Lab work in the emergency room showed a sodium of 112. Nephrology consulted because of hyponatremia. Patient was admitted to ICU. Patient is sitting in chair. She is alert to name and able to answer questions appropriately however having difficult time recalling recent events. Patient does recall that she had been constipated. Patient's at bedside. Per report, patient was started on Augmentin about a week ago for diverticulitis, since then patient has been constipated with poor oral intake. She also had intermittent nausea. No diarrhea or vomiting. No new medications. [facility] Medical History Adrenal disorder Anxiety and depression Bone fracture Breast lump Cyst GERD (gastroesophageal reflux disease) Heart murmur Neuropathy Osteoarthritis Psoriatic arthritis Seasonal allergies Skin cancer STD (female) Type 2 diabetes mellitus Vision problem Home Medications amoxicillin 875 mg-potassium clavulanate 125 mg tablet 1 tab PO BID 10/10/22 [History Last Taken Unknown] anastrozole 1 mg tablet 1 mg PO DAILY 10/10/22 [History Last Taken Unknown] atorvastatin 40 mg tablet 40 mg PO QHS 10/10/22 [History Last Taken Unknown] citalopram 20 mg tablet 20 mg PO DAILY 10/10/22 [History Last Taken Unknown] citicoline 500 mg capsule (Cognitive Health) 500 mg PO DAILY 10/10/22 [History Last Taken Unknown] gabapentin 300 mg capsule 300 mg PO QHS 10/10/22 [History Last Taken Unknown] insulin glargine 100 unit/mL (3 mL) subcutaneous pen (KranemaglRockeTalkikPen U-100 Insulin) 46 unit subcut QPM 10/10/22 [History Last Taken Unknown] insulin lispro 100 unit/mL subcutaneous pen 10 unit subcut BIDAC 10/10/22 [History Last Taken Unknown] lisinopril 10 mg-hydrochlorothiazide 12.5 mg tablet 1 tab PO DAILY 10/10/22 [History Last Taken Unknown] magnesium oxide 400 mg PO DAILY 10/10/22 [History Last Taken Unknown] xmaeoclmzmel-zmcuvbom-jeszhpr-folic acid 400 mcg-vit K1 20 mcg tablet (Women's 50 Plus Advanced) 1 tab PO DAILY 10/10/22 [History Last Taken Unknown] omeprazole 40 mg capsule,delayed release 40 mg PO DAILY 10/10/22 [History Last Taken Unknown] polyethylene glycol 3350 17 gram/dose oral powder (Miralax) 17 g PO DAILY 10/10/22 [History Last Taken Unknown] potassium chloride 20 mEq tablet,extended release 20 meq PO BID 10/10/22 [History Last Taken Unknown] promethazine 25 mg tablet 25 mg PO Q6H PRN Nausea 10/10/22 [History Last Taken Unknown] Allergy/AdvReac Type Severity Reaction Status Date / Time Penicillins [PCN] Allergy Other Verified 10/10/22 12:57 niacin AdvReac Other Verified 10/10/22 12:57 Family History Mother Anxiety Cancer Father Diabetes Surgical History H/O dilation and curettage Social History household members: spouse Smoking Status: Never smoker alcohol intake: current substance use type: does not use additional social history: DOES USE ASPIRIN DOES USE IBUPROFEN ROS ROS Narrative As in HPI Physical Exam Narrative Alert and oriented x3, no apparent distress Mucous membranes moist Lung sounds clear anteriorly and posteriorly, no wheezes rhonchi rales noted S1, S2, RRR Abdomen soft, nontender, rounded/distended No pitting edema noted bilateral lower legs or feet Lab / Micro Data Result Diagrams: 10/11/22 03:45 10/11/22 03:45 Labs: Laboratory Results - last 24 hr 10/10/22 13:33: WBC 18.7 H, RBC 4.39, Hgb 12.1, Hct 33.8 L, MCV 77.0 L, MCH 27.6, MCHC 35.8, RDW Std Deviation 43.7, RDW Coeff of Ricardo 15.5 H, Plt Count 244, MPV 7.9, Immature Gran % (Auto) 1.100 H, Neut % (Auto) 78.2 H, Lymph % (Auto) 13.2 L, [place] % (Auto) 7.3, Eos % (Auto) 0.0, Baso % (Auto) 0.2, Absolute Neuts (auto) 14.6 H, Absolute Lymphs (auto) 2.48, Nucleated RBC % 0 10/10/22 13:33: Sodium 112 L*, Potassium 3.8, Chloride 76 L, Carbon Dioxide 26.0, Anion Gap 10, BUN 15, Creatinine 0.64, Estim Creat Clear Calc 75.68, Est GFR (MDRD) Af Amer 120, Est GFR (MDRD) Non-Af 99, BUN/Creatinine Ratio 23.4 H, Glucose 201 H, Calcium 8.7, Total Bilirubin 0.50, AST 24, ALT 22, Alkaline Phosphatase 114, Total Protein 7.2, Albumin 3.1 L, Globulin 4.1, Albumin/Globulin Ratio 0.8 L, Lipase 47 10/10/22 13:33: Magnesium 2.0, Troponin I High Sens 8 10/10/22 15:28: Urine Color Yellow, Urine Clarity Clear, Urine pH 7.0, Ur Specific Aguirre 1.005, Urine Protein 15 H, Urine Glucose (UA) 100 H, Urine Ketones Negative, Urine Occult Blood Negative, Urine Nitrite Negative, Urine Bilirubin Negative, Urine Urobilinogen Normal, Ur Leukocyte Esterase 25 H, Urine RBC 0 SEEN, Urine WBC 0-5 SEEN, Ur Squamous Epith Cells 0-5 SEEN, Urine Bacteria 0 SEEN, Urine Mucus 0 SEEN 10/10/22 15:28: Urine Osmolality 251 10/10/22 15:28: U Random Total Protein 8.6, Ur Random Sodium 29, Urine Creatinine 24.80, Protein/Creatinin Ratio 347 H, Urine Potassium 27.0, Urine Chloride 37 10/10/22 16:45: Phosphorus 2.4 L, Magnesium 1.9 10/10/22 16:45: Serum Osmolality 246 L 10/10/22 18:25: Sodium 121 L 10/10/22 22:00: Sodium 118 L* 10/11/22 03:45: WBC 15.3 H, RBC 3.90 L, Hgb 10.9 L, Hct 30.5 L, MCV 78.2 L, MCH 27.9, MCHC 35.7, RDW Std Deviation 44.5 H, RDW Coeff of Ricardo 15.7 H, Plt Count 204, MPV 8.0, Immature Gran % (Auto) 1.100 H, Neut % (Auto) 70.7 H, Lymph % (Auto) 20.5, [place] % (Auto) 7.6, Eos % (Auto) 0.0, Baso % (Auto) 0.1, Absolute Neuts (auto) 10.8 H, Absolute Lymphs (auto) 3.14, Nucleated RBC % 0 10/11/22 03:45: Sodium 120 L, Potassium 3.4 L, Chloride 85 L, Carbon Dioxide 26.0, Anion Gap 9, BUN 9, Creatinine 0.42 L, Estim Creat Clear Calc 110.47, Est GFR (MDRD) Af Amer 196, Est GFR (MDRD) Non-Af 162, BUN/Creatinine Ratio 21.6 H, Glucose 115 H, Calcium 8.0 L, TSH 1.27 10/11/22 03:45: Cortisol 26.20 H 10/11/22 03:45: Phosphorus 2.5, Magnesium 1.8 Radiology Impression Abdomen/Pelvis CT 10/10/22 13:18 IMPRESSION: 1. Stable 5 cm right adrenal mass. 2. Large bowel ileus. 3. Over distended urinary bladder. Electronically Signed: David Pickering MD at 15:47 EDT , Brain CT 10/10/22 17:34 IMPRESSION: No acute intracranial hemorrhage or focal white matter abnormality. Mild left vertex superficial soft tissue swelling. No fracture. Electronically Signed: Sanchez Diaz MD at 18:08 EDT , Documented by User: Dr. Charlene Cantu MD 10/11/22 13:51 Assessment & Plan Assessment/Plan (1) Acute hyponatremia: PLAN: Plan This is a pleasant 67-year-old female with past medical history significant for breast cancer with bilateral mastectomy on immunotherapy every 3 weeks (last dose approximately 2 1/2 weeks ago), diabetes, hypertension who presented to the emergency room with complaints of constipation and weakness as well as confusion. Found to have a sodium of 112. Nephrology consulted. Initially patient received IV fluids, normal saline in the emergency room. Serum sodium was repeated about 5 hours later and resulted at 121. At that time patient received DDAVP and started on bolus D5W. About 5 hours later repeat serum sodium 118 and last sodium at 4 AM this morning resulted at 120, patient again received bolus D5W. Patient has hypovolemic hyponatremia with presumed normal baseline sodium. In February 2022 sodium was 143. Her urine sodium 29, urine osmolality 251 and serum Osmo low at 246. TSH is normal and cortisol slightly elevated at 26.20. Recommend continue holding citalopram and hydrochlorothiazide. We will continue monitoring serial sodiums as ordered with goal sodium this evening around 120. Potassium slightly low and patient is getting replacement. Surgery team following for questionable ileus, patient is on clear liquid diet. Thank you for allowing us to participate in the care of Ms. Daily, further orders forthcoming as hospitalization evolves. Patient was seen and examined independently. History of breast cancer, follows with Dr. Solis. Currently on chemotherapy with HER2 receptor alberto Reviewed lab data from [facility]. Sodium was 134 on 10/01/2022. She came in with a sodium of 112. Had somewhat rapid correction. As per , poor appetite and oral intake over the last few days. Most likely hypovolemic hyponatremia. Even though its relatively new onset hyponatremia, will try to corrected slowly. Goal is to keep sodium around 119 or so by 4 PM today. Goal increase 6 to 8/day. Continue frequent sodium checks. Discussed with hospitalist. Discussed with family at bedside. HPI Consult Data Date of Consult: 10/11/22 [facility] Medical History Adrenal disorder Anxiety and depression Bone fracture Breast lump Cyst GERD (gastroesophageal reflux disease) Heart murmur Neuropathy Osteoarthritis Psoriatic arthritis Seasonal allergies Skin cancer STD (female) Type 2 diabetes mellitus Vision problem Home Medications amoxicillin 875 mg-potassium clavulanate 125 mg tablet 1 tab PO BID 10/10/22 [History Last Taken Unknown] anastrozole 1 mg tablet 1 mg PO DAILY 10/10/22 [History Last Taken Unknown] atorvastatin 40 mg tablet 40 mg PO QHS 10/10/22 [History Last Taken Unknown] citalopram 20 mg tablet 20 mg PO DAILY 10/10/22 [History Last Taken Unknown] citicoline 500 mg capsule (Cognitive Health) 500 mg PO DAILY 10/10/22 [History Last Taken Unknown] gabapentin 300 mg capsule 300 mg PO QHS 10/10/22 [History Last Taken Unknown] insulin glargine 100 unit/mL (3 mL) subcutaneous pen (Basaglar KwikPen U-100 Insulin) 46 unit subcut QPM 10/10/22 [History Last Taken Unknown] insulin lispro 100 unit/mL subcutaneous pen 10 unit subcut BIDAC 10/10/22 [History Last Taken Unknown] lisinopril 10 mg-hydrochlorothiazide 12.5 mg tablet 1 tab PO DAILY 10/10/22 [History Last Taken Unknown] magnesium oxide 400 mg PO DAILY 10/10/22 [History Last Taken Unknown] iojfricrlojl-fipduzqn-gfeidgl-folic acid 400 mcg-vit K1 20 mcg tablet (Women's 50 Plus Advanced) 1 tab PO DAILY 10/10/22 [History Last Taken Unknown] omeprazole 40 mg capsule,delayed release 40 mg PO DAILY 10/10/22 [History Last Taken Unknown] polyethylene glycol 3350 17 gram/dose oral powder (Miralax) 17 g PO DAILY 10/10/22 [History Last Taken Unknown] potassium chloride 20 mEq tablet,extended release 20 meq PO BID 10/10/22 [History Last Taken Unknown] promethazine 25 mg tablet 25 mg PO Q6H PRN Nausea 10/10/22 [History Last Taken Unknown] Allergy/AdvReac Type Severity Reaction Status Date / Time Penicillins [PCN] Allergy Other Verified 10/10/22 12:57 niacin AdvReac Other Verified 10/10/22 12:57 Family History Mother Anxiety Cancer Father Diabetes Surgical History H/O dilation and curettage Social History household members: spouse Smoking Status: Never smoker alcohol intake: current substance use type: does not use additional social history: DOES USE ASPIRIN DOES USE IBUPROFEN Lab / Micro Data Result Diagrams: 10/11/22 03:45 10/11/22 03:45
[2022-10-11] MEDS: Enoxaparin 40 MG/0.4 ML Syringe SC (10:07)
[2022-10-11] MEDS: Bisacodyl 10 MG Suppository RC (11:51)
--- NOTE | 2022-10-11 12:15 | CASEMGMT ---
RN?CM?ASSESSMENT Pt has been having intermittent confusion. RN?CM?met w/pt's in the waiting room for initial transition planning/care coordination?assessment.?RN?CM?introduced self and role at [facility].? voices understanding and consents to?assessment?at this time. Care providers, pharmacy, and demographics verified/updated at this time. PCP: Dr Banda Specialists:Dr Solis-oncology Preferred Pharmacy: [facility], [place] [facility]: [facility] Prescription Benefit:?yes Living Will/HPOA:? states would like for pt to complete these. MICHAEL FOSTER informed him SW would be notified, but that pt would need to be oriented/thinking clearly for completion of these. He voices understanding. LNOK:, Christos Living Arrangements: Lives w/Christos in one-story home w/basement and 2 steps to enter. Pt never goes to the basement. There is one step in the home to go into the bathroom. Pt is indep w/ADL's @ baseline. manages her medications. They share home mgnt tasks--pt does laundry and dishes. does most cooking. Transportation:? does most of the driving. Pt still drives short distances. DME: Pt has a functioning glucometer w/supplies. states pt may need a rollator, but he is not sure yet. Verbally reviewed local DME co's and made aware Roger is affiliated w/[facility]. He states okay with [employer]. Other than a possible rollator, states no need for further DME at this time.? HHC/SNF: No hx of either. Per , pt has been falling, stating she had 3 falls in one day and another additional fall another day. He is hopeful that once Na+ is corrected that her strength will be much improved. Made aware therapy evals are pending and they will make recommendations. Discussed SNF vs HHC vs OP therapy. hopeful pt will be strong enough to return home. He does not think pt will be agreeable to HHC, stating, She doesn't like people telling her what to do. He states would be interested in therapy reviewing home exercises that he can do with pt once she returns home. Therapist, Yessenia, made aware. wishes for pt to return home if she is strong enough. CM?to follow for any further discharge planning/needs.? voices no further concerns/needs at this time.? Advised him to ask for?CM?if any further questions/concerns/needs arise.? He voices understanding. PLAN:??TBD by progress w/therapy. PT/OT evals pending. Follow for possible SNF vs HHC vs OP therapy. Follow for possible rollator. requests to meet w/community health nurse for education-Carlene community health nurse, made aware. . for possible completion of AD. Chiara JENKINSN?RN?CM
[2022-10-11 14:55] LABS: Sodium Level 118 mmol/L (136-145)
[2022-10-11 17:05] LABS: Bedside Glucose 213 mg/dL (74-106)
[2022-10-11] MEDS: Insulin Lispro 100 UNIT/ML INSULN.PEN SC (18:08)
[2022-10-11] MEDS: Enalaprilat 1.25 MG/ML Vial 0.625 MG IV ×2 (18:09→23:04)
[2022-10-11] MEDS: 0.9% Saline Lock 10 ML Syringe IV (18:09)
[2022-10-11 21:08] LABS: Sodium Level 119 mmol/L (136-145)
[2022-10-11] MEDS: 0.9% Normal Saline 1,000 ML 75 ML IV (22:29)
[2022-10-11] MEDS: Gabapentin 300 MG Capsule PO (23:06)
[2022-10-11 23:25] LABS: Bedside Glucose 216 mg/dL (74-106)
[2022-10-12] VITALS (8 sets, daily range): BP systolic 104–151; BP diastolic 61–74; PULSE 80–98; RESP 16–18; TEMP 36.7–36.8; O2SAT 98–100; BMI 28.5
[2022-10-12] MEDS: Enalaprilat 1.25 MG/ML Vial 0.625 MG IV ×4 (05:35→23:06)
[2022-10-12 06:45] LABS: Bedside Glucose 189 mg/dL (74-106)
[2022-10-12 06:46] LABS: Absolute Lymphocyte Count 2.37 X10^3/uL (0.83-4.51); Absolute Neutrophil Count 7.7 X10^3/uL (2.0-7.7); Basophil# 0.01 X10^3/uL; Basophil% 0.1 % (0-1); Hematocrit 29.9 % (37-47); Hemoglobin 10.8 g/dL (12.0-15.0); Lymphocyte # 2.37 X10^3/ul (0.83-4.51); Lymphocyte % 21.3 % (19-41); Mean Corp Hgb Conc 36.1 g/dL (32-36); Mean Corpuscular Volume 77.5 fL (81-99); Mean Platelet Vol. 8.1 fl (6.2-12.0); Monocyte% 8.1 % (0-10); NRBC Flagged by Analyzer 0 % (0-5); Neutrophil # 7.73 X10^3/uL (2.7-7.7); Neutrophil % 69.5 % (47-70); Platelet Count 201 K/mm3 (150-450); RBC Distribution Width CV 15.6 % (11.6-14.6); RBC Distribution Width SD 43.9 fl (35.1-43.9); Red Blood Count 3.86 M/mm3 (4.2-5.4); White Blood Count 11.1 K/mm3 (4.4-11.0)
--- NOTE | 2022-10-12 07:32 | PN.SURG_ITS ---
Subjective Subjective Patient seen and examined during AM rounds. She was sleeping on my arrival. She arouses easily and pleasantly. Unfortunately she is unable to provide much history. She is uncertain whether or not she had bowel movements yesterday. She denies any abdominal discomfort. Objective Data Objective Data Vital Signs: Vital Signs Temp Pulse Resp BP Pulse Ox O2 Del Method 98.1 F 96 16 134/62 H 99 Room Air 10/12/22 05:27 10/12/22 05:49 10/12/22 05:27 10/12/22 05:49 10/12/22 05:27 10/12/22 05:27 Oxygen Delivery Method Room Air Weight: 160 lb 11.472 oz Body Mass Index (BMI) 28.5 Intake & Output: Intake and Output for Last 24 Hours 10/10/22 10/11/22 10/12/22 23:59 23:59 23:59 Intake Total 1866.67 / 1866.67 2179.00 / 2179.00 50 / 50 Output Total 1670 / 1670 850 / 850 Balance 196.67 / 196.67 1329.00 / 1329.00 50 / 50 Lab / Micro Data Result Diagrams: 10/12/22 06:10 10/12/22 06:10 Labs: Laboratory Results - last 24 hr 10/11/22 14:20: Sodium 118 L* 10/11/22 16:41: POC Glucose 213 H 10/11/22 20:39: Sodium 119 L* 10/11/22 22:53: POC Glucose 216 H 10/12/22 06:10: WBC 11.1 H, RBC 3.86 L, Hgb 10.8 L, Hct 29.9 L, MCV 77.5 L, MCH 28.0, MCHC 36.1 H, RDW Std Deviation 43.9, RDW Coeff of Ricardo 15.6 H, Plt Count 201, MPV 8.1, Immature Gran % (Auto) 1.000 H, Neut % (Auto) 69.5, Lymph % (Auto) 21.3, [place] % (Auto) 8.1, Eos % (Auto) 0.0, Baso % (Auto) 0.1, Absolute Neuts (auto) 7.7, Absolute Lymphs (auto) 2.37, Nucleated RBC % 0 10/12/22 06:26: POC Glucose 189 H Physical Exam Const Constitutional Narrative: Oriented to person Resp normal respiratory effort GI GI Narrative: Mildly distended, soft, nontender to palpation x4 quadrants Assessment & Plan Assessment/Plan (1) Ileus: PLAN: This 67-year-old female hospital day 3 for admission for weakness and cognitive impairment who presented additionally with colonic ileus. According to report by nursing, patient had several small bowel movements. Patient is unreliable for this history and there is no one else in the room at the time of my visit. Therefore, I would like to objectively evaluate things with a follow- up KUB. This has been ordered. If there appears to be good movement of the patient's stool burden we will consider advancement of her diet today. ? Follow-up KUB ? Serial abdominal exams ? Other management per primary team Charges/Coding Visit Charges Inpatient E&M: 41815 Subs Hosp L2
[2022-10-12 07:44] LABS: Anion Gap 8 (5-15); BUN 8 mg/dL (7-18); BUN/Creat Ratio 19.7 RATIO (10-20); Calcium,Total 8.3 mg/dL (8.5-10.1); Chloride 88 mmol/L (98-107); Creatinine, Serum 0.41 mg/dL (0.55-1.02); EST Glomerular Filtration Rate 167 mL/min (>60); Est Glom Filt Rate - Afr Amer 201 mL/min (>60); Estimated Creatinine Clearance 113.16 ml/min; Glucose 169 mg/dL (74-106); Magnesium 2.2 mg/dL (1.6-2.6); Potassium 3.6 mmol/L (3.5-5.1); Sodium Level 121 mmol/L (136-145)
[2022-10-12 07:45] LABS: Phosphorus 1.9 mg/dL (2.5-4.9)
[2022-10-12] MEDS: Insulin Lispro 100 UNIT/ML INSULN.PEN SC ×2 (08:49→16:22)
[2022-10-12] MEDS: Enoxaparin 40 MG/0.4 ML Syringe SC (08:49)
[2022-10-12] MEDS: Bisacodyl 10 MG Suppository RC (08:49)
[2022-10-12] MEDS: Anastrozole 1 MG TABLET PO (08:50)
[2022-10-12] MEDS: 0.9% Normal Saline 1,000 ML 999 ML IV (09:13)
--- NOTE | 2022-10-12 11:10 | RAD_ITS ---
STUDY: X-RAY - ABDOMEN/PELVIS REASON FOR EXAM: Female, 67 years old. f/u colonic ileus TECHNIQUE: Two AP supine views of the abdomen and pelvis. COMPARISON: October 10, 2022 CT abdomen and pelvis FINDINGS: Normal visualized lung bases. Persistent distended gassy loops of small bowel to the level of the descending colon.. There is no demonstrated free abdominal air. Liver spleen and kidneys are mostly obscured on this study. Normal soft tissue structures. There are diffuse degenerative changes of the visualized lumbar spine. RAD/Abdomen Single View (Portable) IMPRESSION: Persistent gassy distended appearance of the large bowel consider distal obstruction. Could consider oral contrast study and/or potentially barium enema for further clarification. Electronically Signed: Vianey Arreaga MD at 11:53 EDT ,
[2022-10-12] MEDS: 0.9% Normal Saline 1,000 ML 75 ML IV (11:37)
[2022-10-12 11:41] LABS: Bedside Glucose 131 mg/dL (74-106)
--- NOTE | 2022-10-12 12:01 | PCM.PN.REN ---
Subjective Subjective No new complaints. at bedside. Just came back from x-ray KUB. Apparently she is having little bowel movements. Objective Data Objective Data Vital Signs: Vital Signs Temp Pulse Resp BP Pulse Ox O2 Del Method 98.2 F 80 18 134/71 H 98 Room Air 10/12/22 11:35 10/12/22 11:35 10/12/22 11:35 10/12/22 11:35 10/12/22 11:35 10/12/22 11:35 Oxygen Delivery Method Room Air Weight: 72.9 kg Body Mass Index (BMI) 28.5 Intake & Output: Intake and Output for Last 24 Hours 10/10/22 10/11/22 10/12/22 23:59 23:59 23:59 Intake Total 1866.67 / 1866.67 2179.00 / 2179.00 204. / 2045. Output Total 1670 / 1670 850 / 850 Balance 196.67 / 196.67 1329.00 / 1329.00 2046. / 2045.25 Lab / Micro Data Result Diagrams: 10/12/22 06:10 10/12/22 06:10 Labs: Laboratory Results - last 24 hr 10/11/22 14:20: Sodium 118 L* 10/11/22 16:41: POC Glucose 213 H 10/11/22 20:39: Sodium 119 L* 10/11/22 22:53: POC Glucose 216 H 10/12/22 06:10: Sodium 121 L, Potassium 3.6, Chloride 88 L, Carbon Dioxide 25.0, Anion Gap 8, BUN 8, Creatinine 0.41 L, Estim Creat Clear Calc 113.16, Est GFR (MDRD) Af Amer 201, Est GFR (MDRD) Non-Af 167, BUN/Creatinine Ratio 19.7, Glucose 169 H, Calcium 8.3 L, Magnesium 2.2 10/12/22 06:10: WBC 11.1 H, RBC 3.86 L, Hgb 10.8 L, Hct 29.9 L, MCV 77.5 L, MCH 28.0, MCHC 36.1 H, RDW Std Deviation 43.9, RDW Coeff of Ricardo 15.6 H, Plt Count 201, MPV 8.1, Immature Gran % (Auto) 1.000 H, Neut % (Auto) 69.5, Lymph % (Auto) 21.3, [place] % (Auto) 8.1, Eos % (Auto) 0.0, Baso % (Auto) 0.1, Absolute Neuts (auto) 7.7, Absolute Lymphs (auto) 2.37, Nucleated RBC % 0 10/12/22 06:10: Phosphorus 1.9 L 10/12/22 06:26: POC Glucose 189 H 10/12/22 11:22: POC Glucose 131 H Micro: Microbiology 10/10/22 15:28 Urine, Clean Catch Urine Culture - Final Culture exhibits no growth. Radiography Diagnostic Testing: Radiology Impression KUB X-Ray 10/12/22 11:10 IMPRESSION: Persistent gassy distended appearance of the large bowel consider distal obstruction. Could consider oral contrast study and/or potentially barium enema for further clarification. Electronically Signed: Vianey Arreaga MD at 11:53 EDT Reading Location ID and State: [facility] / [place] Tel , Service support , Physical Exam Narrative Alert and oriented x3, no apparent distress Mucous membranes moist Lung sounds clear anteriorly and posteriorly, no wheezes rhonchi rales noted S1, S2, RRR Abdomen soft, nontender, rounded/distended No pitting edema noted bilateral lower legs or feet Assessment & Plan Assessment/Plan (1) Acute hyponatremia: PLAN: Plan Hyponatremia. history of breast cancer, follows with Dr. Solis. Currently on chemotherapy with HER2 receptor alberto Reviewed lab data from [facility]. Sodium was 134 on 10/01/2022. She came in with a sodium of 112. As per , poor appetite and oral intake over the last few days. Most likely hypovolemic hyponatremia. Even though its relatively new onset hyponatremia, will try to corrected slowly. Sodium is at 121 this morning. We will give some IV fluids. Goal is to bring it to 125 today evening and after that she should be able to correct on her own. Also has coexisting ileus, being followed by surgery.
--- NOTE | 2022-10-12 13:35 | CT_ITS ---
STUDY: CT Abdomen And Pelvis W/ Contrast Injection 10/12/2022 4:18 PM REASON FOR EXAM: Female, 67 years old. Abdominal pain large bowel obstruction -- ILEUS, BREAST CA ON IMMUNOTHERAPY, DB, DTC Individualized dose optimization techniques were used for this CT. COMPARISON: 10.10.22. TECHNIQUE: CT Abdomen And Pelvis W/ Contrast Injection IV 100mL [id number] FINDINGS: There are atherosclerotic calcifications of visualized coronary arteries. The visualized portions of the heart are within normal limits. Stable hypodensities of the right lobe of the liver. Normal gallbladder and extrahepatic biliary system. Normal spleen. Normal pancreas. 45mm mass of the right adrenal gland. No acute findings of the right kidney. There are hypodensities in the left kidney. These are consistent for cysts. No follow up required. Focal wall thickening of the antrum of stomach. This can suggest a gastritis. Normal small intestine. Stool throughout the colon. The appendix is visualized and appears normal. Mild wall thickening and inflammation of the rectosigmoid colon suggesting colitis and proctitis. There are calcifications of the abdominal aorta. This is consistent for atherosclerotic disease. There is NO abdominal aortic aneurysm. Vascular workup can be obtained based on clinical correlation. Normal inferior vena cava. Subcentimeter mesenteric lymph nodes. The urinary bladder is distended. This can suggest urinary retention. There is atrophy of the uterus. There is an umbilical hernia containing fat. There are diffuse degenerative changes of the visualized lumbar spine. Minimal inflammatory stranding and subcutaneous air noted in the left subcutaneous fat anteriorly. This can suggest insulin injection sites. CT/Abdomen/Pelvis WITH Contrast IMPRESSION: (NOT LISTED IN ORDER OF SIGNIFICANCE) Gastritis. Constipation. Mild wall thickening and inflammation of the rectosigmoid colon suggesting colitis and proctitis. The urinary bladder is distended. This can suggest urinary retention. 45mm mass of the right adrenal gland. ACR White Paper guidelines (Oksana et al. JACR 2017; 14(8):3747-9681) suggest PET-CT or biopsy with preprocedure biochemical assays to determine functional status and exclude pheochromocytoma. Other findings as above. Electronically Signed: Donald Meléndez MD at 16:27 EDT ,
[2022-10-12] MEDS: Ondansetron 4 MG/2 ML Vial IV (14:24)
--- NOTE | 2022-10-12 14:43 | CASEMGMT ---
Addendum entered by Ely Langford 10/12/22 14:56: TC from Mariaelena at [facility], pt will need a credit/debit card to pay for rollator and she asks when he will be present at the hospital. TC back to pt , he states he will be here at 8am for a couple of hours and will bring a credit card. Mariaelena aware. Addendum entered by Ely Langford 10/12/22 14:48: Received returned tc from pt . He is interested in the deluxe rollator and is aware of the $59.95 copay that needs collected upon delivery. He would like to proceed with this through [facility]. Discussed HHC therapy vs OP therapy. He states he would like to discuss with the patient. He plans to let this RN CM know tomorrow the decision. Original Note: TC to pt to discuss rollator with seat as well as therapy recommendations. Left vm with return call information.
--- NOTE | 2022-10-12 16:07 | PCM.PN.HOSP ---
Reason for Visit Reason for Visit: Altered mental status/lethargy/generalized weakness Subjective Subjective No issues overnight. Mental status remains improved however not quite yet at baseline. Did not sleep well through the night. Sodium is improving per recommended rate. Did have 2 bowel movements yesterday. No nausea with breakfast. is concerned that the patient may have sleep apnea. She has never been assessed. He does note that she is fatigued during the day and has episodes where she stops breathing and then snorts when she starts breathing again. I indicated I would refer him to pulmonary medicine to have sleep eval at discharge and we discussed things that she can do in the meantime as far as positioning to avoid further issues. Objective Data Objective Data Vital Signs: Vital Signs Temp Pulse Resp BP Pulse Ox O2 Del Method 98.2 F 80 18 134/71 H 98 Room Air 10/12/22 11:35 10/12/22 11:35 10/12/22 11:35 10/12/22 11:35 10/12/22 11:35 10/12/22 11:35 Oxygen Delivery Method Room Air Weight: 72.9 kg Body Mass Index (BMI) 28.5 Intake & Output: Intake and Output for Last 24 Hours 10/10/22 10/11/22 10/12/22 23:59 23:59 23:59 Intake Total 1866.67 / 1866.67 2179.00 / 2179.00 2535.00 / 2535.00 Output Total 1670 / 1670 850 / 850 Balance 196.67 / 196.67 1329.00 / 1329.00 2535.00 / 2535.00 Lab / Micro Data Result Diagrams: 10/12/22 06:10 10/12/22 06:10 Labs: Laboratory Results - last 24 hr 10/11/22 16:41: POC Glucose 213 H 10/11/22 20:39: Sodium 119 L* 10/11/22 22:53: POC Glucose 216 H 10/12/22 06:10: Sodium 121 L, Potassium 3.6, Chloride 88 L, Carbon Dioxide 25.0, Anion Gap 8, BUN 8, Creatinine 0.41 L, Estim Creat Clear Calc 113.16, Est GFR (MDRD) Af Amer 201, Est GFR (MDRD) Non-Af 167, BUN/Creatinine Ratio 19.7, Glucose 169 H, Calcium 8.3 L, Magnesium 2.2 05/23/23 06:10: WBC 11.1 H, RBC 3.86 L, Hgb 10.8 L, Hct 29.9 L, MCV 77.5 L, MCH 28.0, MCHC 36.1 H, RDW Std Deviation 43.9, RDW Coeff of Ricardo 15.6 H, Plt Count 201, MPV 8.1, Immature Gran % (Auto) 1.000 H, Neut % (Auto) 69.5, Lymph % (Auto) 21.3, [place] % (Auto) 8.1, Eos % (Auto) 0.0, Baso % (Auto) 0.1, Absolute Neuts (auto) 7.7, Absolute Lymphs (auto) 2.37, Nucleated RBC % 0 10/12/22 06:10: Phosphorus 1.9 L 10/12/22 06:26: POC Glucose 189 H 10/12/22 11:22: POC Glucose 131 H Micro: Microbiology 10/10/22 15:28 Urine, Clean Catch Urine Culture - Final Culture exhibits no growth. Radiography Diagnostic Testing: Radiology Impression KUB X-Ray 10/12/22 11:10 IMPRESSION: Persistent gassy distended appearance of the large bowel consider distal obstruction. Could consider oral contrast study and/or potentially barium enema for further clarification. Electronically Signed: Vianey Arreaga MD at 11:53 EDT Reading Location ID and State: [facility] / [place] Tel , Service support , Physical Exam Const no apparent distress Constitutional Narrative: Upper middle-aged, white female, appears older than stated age, lying in bed sleeping at the bedside visiting, appears comfortable HEENT head/scalp atraumatic and moist oral mucous membranes Head and Scalp: normocephalic Resp normal respiratory effort, no retractions, no use of accessory muscles and clear to auscultation bilaterally Auscultation: Negative for rales, rhonchi or wheezes Cardio regular rate, regular rhythm, S1 normal heart sound, S2 normal heart sound, no murmurs, no rub, no gallops and no clicks GI Negative for normal to inspection, nondistended, normoactive bowel sounds GI Narrative: Remains with slight distention and hypoactive bowel sounds, abdomen is soft and nontender Extremity no clubbing, cyanosis or edema Extremity Narrative: Pedal pulses are 2+ Neuro Neuro Narrative: Patient sleeping Psych Psych Narrative: Unable to assess secondary to patient sleeping Assessment & Plan Assessment/Plan (1) Acute hyponatremia: (2) Ileus: (3) Weakness: (4) Constipation: (5) Leukocytosis: (6) Muscle weakness: PLAN: Plan Acute hyponatremia -Suspect hypovolemic hyponatremia due to dehydration and decreased oral solute intake -Last known sodium from 10/01/2022 was normal at 134 on 10/01/2022 -This means drop was quite precipitous -Oral intake has been low and patient is on hydrochlorothiazide as well as citalopram -Sodium up to 121 this morning -IV fluids dosed by nephrology today with goal sodium for this evening to be 125 and is felt that after that she may be able to correct on her own -TSH and cortisol unremarkable -We will continue to hold HCTZ and citalopram--> anticipate discontinuation at discharge -Nephrology consult-appreciate input--> discussed with Dr. Cantu Ileus/constipation -General surgery is following--> discussed with Dr. Ordoñez -Did have a couple of stools last evening -Repeat enemas pending for today -KUB still shows stool burden -CT with rectal contrast ordered by surgery today -Continue clear liquid diets Hypophosphatemia -Phosphorus bolus given -Repeat Anselmo a.m. Phos level Leukocytosis -Etiology is unclear -Was diagnosed with diverticulitis recently however per general surgery consultation they recommended discontinuing antibiotics with negative CT scan on admission -No diverticuli were appreciated on this imaging -Urine culture with no growth -Leukocytosis is improving without any intervention Generalized weakness -Suspect related to the severe hyponatremia -PT/OT/speech therapy following Anemia -Microcytic but stable -Check iron studies Breast cancer -Continue anastrozole daily DM-2 -Hold home insulin as blood sugars are currently well controlled -Add sliding scale -At baseline patient is on Basaglar 46 units at at bedtime and lispro 10 units twice daily subcu -Accu-Cheks as ordered Hypertension/hyperlipidemia -Continue enalaprilat 6.25 mg every 6 hours with hold parameters until able to adequately take p.o. without any concerns of absorption -Hold home lisinopril/HCTZ -Restart statin once gut function is returned to baseline Diabetic neuropathy -Hold gabapentin until p.o. can be reinitiated GERD -Continue IV Protonix 40 mg daily Anxiety/Depression -hold citalopram Suspected CHERELLE -We will refer to pulmonary medicine for outpatient sleep study at discharge DVT prophylaxis -Continue subcu enoxaparin CODE STATUS Full code Charges/Coding Visit Charges Inpatient E&M: 54469 Subs Hosp L2
--- NOTE | 2022-10-12 16:46 | PN.HOSP_ITS ---
Hospitalist Note Incidentaloma noted on CT of the abdomen pelvis. We will pursue testing to see if there is any hormonal hypersecretion with dexamethasone suppression test, 24- hour urine metanephrines and catecholamines and serum aldosterone level to see if this is a functional adenoma or not.
[2022-10-12 16:50] LABS: Bedside Glucose 162 mg/dL (74-106)
--- NOTE | 2022-10-12 17:12 | NURSING ---
no c/o of abd pressure/pain or needing to void. bladder scan done. pt to bathroom, unable to void.
[2022-10-12 17:30] LABS: Ferritin 556 ng/mL (8-252); Iron 40 ug/dL (50-170); Iron Binding Capacity,Total 256 ug/dL (250-450); PERCENT IRON SATURATION 15.6 % (15.0-55.0)
[2022-10-12] MEDS: metroNIDAZOLE 500 MG/100 ML BAG 100 MG IV ×2 (17:38→23:05)
[2022-10-12] MEDS: Ciprofloxacin 400 MG/200 ML BAG 200 MG IV (18:55)
[2022-10-12] MEDS: Gabapentin 300 MG Capsule PO (22:10)
[2022-10-12 22:45] LABS: Bedside Glucose 183 mg/dL (74-106)
[2022-10-13] VITALS (8 sets, daily range): BP systolic 125–162; BP diastolic 65–86; PULSE 85–101; RESP 18; TEMP 36.7–36.9; O2SAT 97–100; BMI 27.8
[2022-10-13] MEDS: metroNIDAZOLE 500 MG/100 ML BAG 100 MG IV ×3 (05:51→21:33)
[2022-10-13] MEDS: Enalaprilat 1.25 MG/ML Vial 0.625 MG IV ×4 (05:52→23:15)
[2022-10-13] MEDS: 0.9% Normal Saline 1,000 ML 75 ML IV ×2 (05:57→21:05)
[2022-10-13 05:59] LABS: Absolute Lymphocyte Count 2.08 X10^3/uL (0.83-4.51); Absolute Neutrophil Count 5.7 X10^3/uL (2.0-7.7); Basophil# 0.02 X10^3/uL; Basophil% 0.2 % (0-1); Hematocrit 30.4 % (37-47); Hemoglobin 10.3 g/dL (12.0-15.0); Lymphocyte # 2.08 X10^3/ul (0.83-4.51); Lymphocyte % 24.3 % (19-41); Mean Corp Hgb Conc 33.9 g/dL (32-36); Mean Corpuscular Hgb 27.4 pg (27.0-32.0); Mean Corpuscular Volume 80.9 fL (81-99); Mean Platelet Vol. 7.8 fl (6.2-12.0); Monocyte# 0.67 X10^3/uL; Monocyte% 7.8 % (0-10); NRBC Flagged by Analyzer 0 % (0-5); Neutrophil # 5.71 X10^3/uL (2.7-7.7); Neutrophil % 66.8 % (47-70); Platelet Count 194 K/mm3 (150-450); RBC Distribution Width CV 15.9 % (11.6-14.6); RBC Distribution Width SD 46.6 fl (35.1-43.9); Red Blood Count 3.76 M/mm3 (4.2-5.4); White Blood Count 8.6 K/mm3 (4.4-11.0)
[2022-10-13 07:05] LABS: ALB/GLOB Ratio 0.8 RATIO (0.9-2.4); AST(SGOT) 13 U/L (15-37); Alanine Aminotransfer ALT/SGPT 18 U/L (13-56); Albumin, Serum 2.7 g/dL (3.2-5.0); Alkaline Phosphatase 92 U/L (45-117); Anion Gap 7 (5-15); BUN 6 mg/dL (7-18); BUN/Creat Ratio 12.4 RATIO (10-20); Calcium,Total 8.4 mg/dL (8.5-10.1); Chloride 102 mmol/L (98-107); Creatinine, Serum 0.48 mg/dL (0.55-1.02); EST Glomerular Filtration Rate 136 mL/min (>60); Est Glom Filt Rate - Afr Amer 165 mL/min (>60); Estimated Creatinine Clearance 96.66 ml/min; Globulin 3.3 g/dL (2.2-4.2); Glucose 146 mg/dL (74-106); Potassium 3.2 mmol/L (3.5-5.1); Sodium Level 135 mmol/L (136-145)
[2022-10-13 08:40] LABS: Bedside Glucose 148 mg/dL (74-106)
[2022-10-13] MEDS: Enoxaparin 40 MG/0.4 ML Syringe SC (09:15)
[2022-10-13] MEDS: Anastrozole 1 MG TABLET PO (09:15)
[2022-10-13] MEDS: Ciprofloxacin 400 MG/200 ML BAG 200 MG IV ×2 (09:44→23:11)
--- NOTE | 2022-10-13 09:58 | CASEMGMT ---
Addendum entered by Ely Langford 10/13/22 10:41: RN CM into pt room, patient was provided a list of HHC providers including quality and resource use data and consistent with the patient?s preferred geographic region, medical needs, and insurance network were provided from the [facility]. Pt to review with and RN CM to check back on options. Original Note: Mariaelena nash [facility] called and states they do not have a rollator at the branch and it will need to be drop shipped to pt home. RN CM into pt room, present at bedside. Pt and are agreeable to this being shipped to the home. They also have decided on HHC. They are aware RN CM will be back with a list.
--- NOTE | 2022-10-13 10:16 | CASEMGMT ---
Social Work SW met with patient and patient's and introduced herself and role as [facility] SW. Patient and patient's agreeable to discuss AD. Patient alert and oriented, sitting up in hospital chair. Patient's presented AD documents completed in 2017 that were not witnessed. SW assisted patient in reviewing the information on new Advanced Directives documents. Patient naming her as HCPOA and two sons as alternates. No special instructions on HCPOA nor Living Will. YARA and MICHAEL Florez witnessed patient's signatures on HCPOA and LW. Patient given original documents and 3 copies, copy placed on chart. Casandra Florez MSW, STAR
--- NOTE | 2022-10-13 10:33 | CASEMGMT ---
Discharge Planning HH list created and given to RN CM. Amisha Henderson
[2022-10-13] MEDS: Bisacodyl 10 MG Suppository RC (10:47)
--- NOTE | 2022-10-13 10:57 | PN.RENAL_ITS ---
Subjective Subjective No new complaints. Still no bowel movements yet Objective Data Objective Data Vital Signs: Vital Signs Temp Pulse Resp BP Pulse Ox O2 Del Method 98.4 F 86 18 138/66 H 100 Room Air 10/13/22 08:00 10/13/22 08:00 10/13/22 08:00 10/13/22 08:00 10/13/22 08:00 10/13/22 08:00 Oxygen Delivery Method Room Air Weight: 71.4 kg Body Mass Index (BMI) 27.8 Intake & Output: Intake and Output for Last 24 Hours 10/11/22 10/12/22 10/13/22 23:59 23:59 23:59 Intake Total 2179.00 / 2179.00 3183.75 / 3183.75 1331.25 / 1331.25 Output Total 850 / 850 2100 / 2100 1175 / 1175 Balance 1329.00 / 1329.00 1083.75 / 1083.75 156.25 / 156.25 Lab / Micro Data Result Diagrams: 10/13/22 05:52 10/13/22 05:52 Labs: Laboratory Results - last 24 hr 10/12/22 06:10: Iron 40 L, TIBC 256, Iron Saturation 15.6, Ferritin 556 H 10/12/22 11:22: POC Glucose 131 H 10/12/22 16:20: POC Glucose 162 H 10/12/22 22:21: POC Glucose 183 H 10/13/22 05:52: WBC 8.6, RBC 3.76 L, Hgb 10.3 L, Hct 30.4 L, MCV 80.9 L, MCH 27.4, MCHC 33.9 D, RDW Std Deviation 46.6 H, RDW Coeff of Ricardo 15.9 H, Plt Count 194, MPV 7.8, Immature Gran % (Auto) 0.900, Neut % (Auto) 66.8, Lymph % (Auto) 24.3, [place] % (Auto) 7.8, Eos % (Auto) 0.0, Baso % (Auto) 0.2, Absolute Neuts (auto) 5.7, Absolute Lymphs (auto) 2.08, Nucleated RBC % 0 10/13/22 05:52: Sodium 135 L, Potassium 3.2 L, Chloride 102, Carbon Dioxide 26.0, Anion Gap 7, BUN 6 L, Creatinine 0.48 L, Estim Creat Clear Calc 96.66, Est GFR (MDRD) Af Amer 165, Est GFR (MDRD) Non-Af 136, BUN/Creatinine Ratio 12.4, Glucose 146 H, Calcium 8.4 L, Phosphorus 2.0 L, Magnesium 2.0, Total Bilirubin 0.30, AST 13 L, ALT 18, Alkaline Phosphatase 92, Total Protein 6.0 L, Albumin 2.7 L, Globulin 3.3, Albumin/Globulin Ratio 0.8 L 10/13/22 07:46: POC Glucose 148 H Micro: Microbiology 10/10/22 15:28 Urine, Clean Catch Urine Culture - Final Culture exhibits no growth. Radiography Diagnostic Testing: Radiology Impression Chest X-Ray 10/10/22 15:00 IMPRESSION: No acute cardiopulmonary abnormality. Electronically Signed: David Pickering MD at 15:52 EDT , KUB X-Ray 10/12/22 11:10 IMPRESSION: Persistent gassy distended appearance of the large bowel consider distal obstruction. Could consider oral contrast study and/or potentially barium enema for further clarification. Electronically Signed: Vianey Arreaga MD at 11:53 EDT , Abdomen/Pelvis CT 10/12/22 13:35 IMPRESSION: (NOT LISTED IN ORDER OF SIGNIFICANCE) Gastritis. Constipation. Mild wall thickening and inflammation of the rectosigmoid colon suggesting colitis and proctitis. The urinary bladder is distended. This can suggest urinary retention. 45mm mass of the right adrenal gland. ACR White Paper guidelines (Oksana et al. JACR 2017; 14(8):8720-9968) suggest PET-CT or biopsy with preprocedure biochemical assays to determine functional status and exclude pheochromocytoma. Other findings as above. Electronically Signed: Donald Meléndez MD at 16:27 EDT , ADDENDUM: 10/12/22 1725 IMPRESSION: undefined Physical Exam Narrative Alert and oriented x3, no apparent distress Mucous membranes moist Lung sounds clear anteriorly and posteriorly, no wheezes rhonchi rales noted S1, S2, RRR Abdomen soft, nontender, rounded/distended No pitting edema noted bilateral lower legs or feet Assessment & Plan Assessment/Plan (1) Acute hyponatremia: PLAN: Plan Hyponatremia. history of breast cancer, follows with Dr. Solis. Currently on chemotherapy with HER2 receptor alberto Reviewed lab data from [facility]. Sodium was 134 on 10/01/2022. She came in with a sodium of 112. As per , poor appetite and oral intake over the last few days. Most likely hypovolemic hyponatremia. Even though its relatively new onset hyponatremia, corrected slowly. Sodium is now back up to 134. 22 point correction in 3 days, average about 8 points per day which is reasonable. Unfortunately she developed ileus. Being evaluated by surgery. We will follow peripherally
[2022-10-13] MEDS: Insulin Lispro 100 UNIT/ML INSULN.PEN SC ×2 (11:42→16:25)
[2022-10-13] MEDS: 0.9% Saline Lock 10 ML Syringe IV ×2 (11:44→17:55)
[2022-10-13 12:15] LABS: Bedside Glucose 356 mg/dL (74-106)
[2022-10-13] MEDS: Ensure Plus High Protein 120 ML LIQUID PO ×3 (14:43→21:05)
--- NOTE | 2022-10-13 15:16 | PN.HOSP_ITS ---
Reason for Visit Reason for Visit: Altered mental status/lethargy/generalized weakness Subjective Subjective No bowel movements yesterday or through the night. Patient does feel like she is having some movement today however. Tolerating p.o. diet with no nausea this morning. Her indicates that her mental status is back to baseline. We discussed that her sodium is much better. Objective Data Objective Data Vital Signs: Vital Signs Temp Pulse Resp BP Pulse Ox O2 Del Method 98.1 F 87 18 130/70 H 100 Room Air 10/13/22 14:50 10/13/22 14:50 10/13/22 14:50 10/13/22 14:50 10/13/22 14:50 10/13/22 14:50 Oxygen Delivery Method Room Air Weight: 71.4 kg Body Mass Index (BMI) 27.8 Intake & Output: Intake and Output for Last 24 Hours 10/11/22 10/12/22 10/13/22 23:59 23:59 23:59 Intake Total 2179.00 / 2179.00 3183.75 / 3183.75 1726.55 / 1726.55 Output Total 850 / 850 2100 / 2100 1950 / 1950 Balance 1329.00 / 1329.00 1083.75 / 1083.75 -223.45 / -223.45 Lab / Micro Data Result Diagrams: 10/13/22 05:52 10/13/22 05:52 Labs: Laboratory Results - last 24 hr 10/12/22 06:10: Iron 40 L, TIBC 256, Iron Saturation 15.6, Ferritin 556 H 10/12/22 16:20: POC Glucose 162 H 10/12/22 22:21: POC Glucose 183 H 10/13/22 05:52: WBC 8.6, RBC 3.76 L, Hgb 10.3 L, Hct 30.4 L, MCV 80.9 L, MCH 27.4, MCHC 33.9 D, RDW Std Deviation 46.6 H, RDW Coeff of Ricardo 15.9 H, Plt Count 194, MPV 7.8, Immature Gran % (Auto) 0.900, Neut % (Auto) 66.8, Lymph % (Auto) 24.3, [place] % (Auto) 7.8, Eos % (Auto) 0.0, Baso % (Auto) 0.2, Absolute Neuts (auto) 5.7, Absolute Lymphs (auto) 2.08, Nucleated RBC % 0 10/13/22 05:52: Sodium 135 L, Potassium 3.2 L, Chloride 102, Carbon Dioxide 26.0, Anion Gap 7, BUN 6 L, Creatinine 0.48 L, Estim Creat Clear Calc 96.66, Est GFR (MDRD) Af Amer 165, Est GFR (MDRD) Non-Af 136, BUN/Creatinine Ratio 12.4, Glucose 146 H, Calcium 8.4 L, Phosphorus 2.0 L, Magnesium 2.0, Total Bilirubin 0.30, AST 13 L, ALT 18, Alkaline Phosphatase 92, Total Protein 6.0 L, Albumin 2.7 L, Globulin 3.3, Albumin/Globulin Ratio 0.8 L 10/13/22 05:52: Ur VMA 24 hr Cancelled, Ur VMA Concentration Cancelled, Urine Epinephrine Cancelled, Ur Epinephrine 24 Hr Cancelled, Urine Norepinephrine Cancelled, U Norepinephrine 24 Hr Cancelled, Urine Metanephrine Cancelled, U Metanephrines 24 Hr Cancelled, U Normetanephrine Cancelled, U Normetanephrine 24h Cancelled, Urine Dopamine Cancelled, Ur Dopamine 24 Hr Cancelled 10/13/22 07:46: POC Glucose 148 H 10/13/22 11:41: POC Glucose 356 H Micro: Microbiology 10/10/22 15:28 Urine, Clean Catch Urine Culture - Final Culture exhibits no growth. Radiography Diagnostic Testing: Radiology Impression Chest X-Ray 10/10/22 15:00 IMPRESSION: No acute cardiopulmonary abnormality. Electronically Signed: David Pickering MD at 15:52 EDT , Abdomen/Pelvis CT 10/12/22 13:35 IMPRESSION: (NOT LISTED IN ORDER OF SIGNIFICANCE) Gastritis. Constipation. Mild wall thickening and inflammation of the rectosigmoid colon suggesting colitis and proctitis. The urinary bladder is distended. This can suggest urinary retention. 45mm mass of the right adrenal gland. ACR White Paper guidelines (Oksana et al. JACR 2017; 14(8):3258-5350) suggest PET-CT or biopsy with preprocedure biochemical assays to determine functional status and exclude pheochromocytoma. Other findings as above. Electronically Signed: Donald Meléndez MD at 16:27 EDT , ADDENDUM: 10/12/22 3005 IMPRESSION: undefined Physical Exam Const alert, oriented x3, no apparent distress and average body habitus Constitutional Narrative: Upper middle-aged, white female, appears older than stated age, sitting up in a chair at the bedside, at the bedside, appears comfortable, nontoxic HEENT head/scalp atraumatic and moist oral mucous membranes Eyes PERRL, EOMs intact bilaterally and conjunctivae normal Eyes Narrative: No scleral icterus Neck no lymphadenopathy and supple Neck Narrative: Trachea midline Resp normal respiratory effort, no retractions, no use of accessory muscles and clear to auscultation bilaterally Auscultation: Negative for rales, rhonchi or wheezes Cardio regular rate, regular rhythm, S1 normal heart sound, S2 normal heart sound, no murmurs, no rub, no gallops and no clicks GI Negative for normal to inspection, nondistended, normoactive bowel sounds GI Narrative: Remains with slight distention and hypoactive bowel sounds, abdomen is soft and nontender Extremity no clubbing, cyanosis or edema Extremity Narrative: Pedal pulses are 2+ Neuro oriented x3, moves all extremities and no focal motor deficits Neuro Narrative: Mental processing seems to be back to baseline Speech: speech normal Psych affect normal Psych Narrative: Very pleasant, appropriate Assessment & Plan Assessment/Plan (1) Acute hyponatremia: (2) Ileus: (3) Weakness: (4) Constipation: (5) Leukocytosis: (6) Muscle weakness: (7) Adrenal nodule: PLAN: Plan Acute hyponatremia -Suspect hypovolemic hyponatremia due to dehydration and decreased oral solute intake -Last known sodium from 10/01/2022 was normal at 134 on 10/01/2022 -This means drop was quite precipitous -Oral intake has been low and patient is on hydrochlorothiazide as well as citalopram -Sodium has almost normalized at 135 this morning -Anselmo BMP in a.m. -TSH and cortisol unremarkable -We will continue to hold HCTZ and citalopram--> anticipate discontinuation at discharge -Nephrology consult-appreciate input Ileus/constipation -General surgery is following--> discussed with Dr. Ordoñez -Did have a couple of stools last evening -Repeat enemas pending for today -KUB still shows stool burden -CT with rectal contrast showed constipation and colitis -Continue clear liquid diets Colitis/proctitis -Cipro/Flagyl -We will complete oral course once gut function has returned after discharge -General surgery is following Adrenal nodule -Nodule stable in size -Work-up for functional status of nodule is pending with 24-hour urine catecholamines and metanephrines/serum aldosterone level/dexamethasone suppression test if we can do that here however it seems that this may be a problem to do as an inpatient -If we are unable to do this here I would recommend outpatient dexamethasone suppression test -[place] units were not reported Hypophosphatemia -Improved -Repeat phosphorus bolus -Repeat Anselmo a.m. Phos level Hypokalemia -Replacement -Recheck in a.m. Leukocytosis -Resolved and differential has normalized Generalized weakness -Resolving -Therapy services following Anemia -Microcytic but stable -Iron studies are unimpressive Breast cancer -Continue anastrozole daily DM-2 -Continue to hold home insulin as blood sugars are currently well controlled -Add sliding scale -At baseline patient is on Basaglar 46 units at at bedtime and lispro 10 units twice daily subcu -Accu-Cheks as ordered Hypertension/hyperlipidemia -Continue enalaprilat 6.25 mg every 6 hours with hold parameters until able to adequately take p.o. without any concerns of absorption -Hold home lisinopril/HCTZ -Restart statin once gut function is returned to baseline Diabetic neuropathy -Hold gabapentin until p.o. can be reinitiated GERD -Continue IV Protonix 40 mg daily Anxiety/Depression -hold citalopram Suspected CHERELLE -We will refer to pulmonary medicine for outpatient sleep study at discharge DVT prophylaxis -Continue subcu enoxaparin CODE STATUS Full code Charges/Coding Visit Charges Inpatient E&M: 04623 Subs Hosp L3
[2022-10-13] MEDS: Lactulose 20 GM/30 ML UDC PO (16:25)
[2022-10-13 16:50] LABS: Bedside Glucose 224 mg/dL (74-106)
[2022-10-13] MEDS: Gabapentin 300 MG Capsule PO (21:05)
[2022-10-13 21:56] LABS: Bedside Glucose 273 mg/dL (74-106)
[2022-10-14 03:00] VITALS: BP 135/72; PULSE 92; RESP 18; TEMP 36.8; O2SAT 99
--- NOTE | 2022-10-14 05:15 | RAD_ITS ---
INDICATION: Bowel obstruction EXAMINATION/TECHNIQUE: X-RAY - XR Abdomen W/ Decub and/or Erect Views: AP supine and left lateral decubitus views of abdomen COMPARISON: Abdominal radiographs from 10/12/2022 FINDINGS: BOWEL GAS PATTERN: Mild generalized gaseous colonic distention slightly improved, with scattered formed stool. There are few residual slightly prominent loops of small bowel. FREE AIR: No free air demonstrated. ORGANOMEGALY: Not seen. CALCIFICATIONS: Vascular calcifications within pelvis. LOWER CHEST: No acute pathology. BONES AND SOFT TISSUES: No acute pathology. RAD/Abd Inc Decub and/or Erect IMPRESSION: Findings suggesting slightly improving bowel ileus. Continued follow-up recommended. Electronically Signed: Wyatt Ramey MD at 5:46 EDT ,
[2022-10-14 05:55] VITALS: BMI 27.7
[2022-10-14 05:59] VITALS: BP 115/66; PULSE 78
[2022-10-14] MEDS: metroNIDAZOLE 500 MG/100 ML BAG 100 MG IV (05:59)
[2022-10-14] MEDS: Enalaprilat 1.25 MG/ML Vial 0.625 MG IV ×2 (05:59→12:00)
[2022-10-14] MEDS: Insulin Lispro 100 UNIT/ML INSULN.PEN SC ×2 (06:16→11:36)
[2022-10-14 06:40] LABS: Bedside Glucose 196 mg/dL (74-106)
[2022-10-14 08:08] LABS: Anion Gap 8 (5-15); BUN 5 mg/dL (7-18); BUN/Creat Ratio 7.7 RATIO (10-20); Calcium,Total 8.8 mg/dL (8.5-10.1); Chloride 104 mmol/L (98-107); Creatinine, Serum 0.65 mg/dL (0.55-1.02); EST Glomerular Filtration Rate 97 mL/min (>60); Est Glom Filt Rate - Afr Amer 117 mL/min (>60); Estimated Creatinine Clearance 71.38 ml/min; Glucose 181 mg/dL (74-106); Potassium 3.1 mmol/L (3.5-5.1); Sodium Level 135 mmol/L (136-145)
[2022-10-14] MEDS: Enoxaparin 40 MG/0.4 ML Syringe SC (09:39)
[2022-10-14] MEDS: Lactulose 20 GM/30 ML UDC 10 GM PO (09:39)
[2022-10-14] MEDS: Anastrozole 1 MG TABLET PO (09:40)
--- NOTE | 2022-10-14 09:55 | CASEMGMT ---
Discharge Planning HH choices are as follows; 1-[facility], 2-[facility], 3-[facility]. Referral sent to [facility] via [facility]. Amisha Henderson
[2022-10-14 10:00] VITALS: BP 128/72; PULSE 95; RESP 18; TEMP 36.8; O2SAT 97
[2022-10-14] MEDS: Ensure Plus High Protein 120 ML LIQUID PO (10:12)
[2022-10-14] MEDS: Ciprofloxacin 400 MG/200 ML BAG 200 MG IV (10:12)
--- NOTE | 2022-10-14 11:40 | CASEMGMT ---
Discharge Planning HH referral sent via [facility] to [facility]. Amisha Henderson
[2022-10-14 11:55] LABS: Bedside Glucose 309 mg/dL (74-106)
--- NOTE | 2022-10-14 11:56 | CASEMGMT ---
Discharge Planning [facility] has not yet reviewed referral but did state they cannot begin services until Tuesday of next week. Referral sent to [facility], who accepted, but they cannot begin services until next week also. Referral sent via [facility] to [facility] via [facility]. Awaiting response. Amisha Henderson
[2022-10-14 12:00] VITALS: BP 122/68; PULSE 94
[2022-10-14] MEDS: 0.9% Saline Lock 10 ML Syringe IV ×2 (12:00→14:59)
--- NOTE | 2022-10-14 12:01 | PCM.PN.SRG ---
Subjective Subjective Patient seen and examined during AM rounds. States that she is currently in a [place]. She has several complaints about this [place] and reports that she just lost her phone. She is unable to clarify whether or not she has had any bowel movements. She denies any abdominal discomfort. Objective Data Objective Data Vital Signs: Vital Signs Temp Pulse Resp BP Pulse Ox O2 Del Method 98.2 F 78 18 115/66 99 Room Air 10/14/22 03:00 10/14/22 05:59 10/14/22 03:00 10/14/22 05:59 10/14/22 03:00 10/14/22 09:57 Oxygen Delivery Method Room Air Weight: 156 lb 8.451 oz Body Mass Index (BMI) 27.7 Intake & Output: Intake and Output for Last 24 Hours 10/12/22 10/13/22 10/14/22 23:59 23:59 23:59 Intake Total 3183.75 / 3183.75 3095.00 / 3095.00 1110 / 1110 Output Total 2100 / 2100 2950 / 2950 700 / 700 Balance 1083.75 / 1083.75 145.00 / 145.00 410 / 410 Lab / Micro Data Result Diagrams: 10/13/22 05:52 10/14/22 07:30 Labs: Laboratory Results - last 24 hr 10/13/22 05:52: Ur VMA 24 hr Cancelled, Ur VMA Concentration Cancelled, Urine Epinephrine Cancelled, Ur Epinephrine 24 Hr Cancelled, Urine Norepinephrine Cancelled, U Norepinephrine 24 Hr Cancelled, Urine Metanephrine Cancelled, U Metanephrines 24 Hr Cancelled, U Normetanephrine Cancelled, U Normetanephrine 24h Cancelled, Urine Dopamine Cancelled, Ur Dopamine 24 Hr Cancelled 10/13/22 11:41: POC Glucose 356 H 10/13/22 16:24: POC Glucose 224 H 10/13/22 21:08: POC Glucose 273 H 10/14/22 06:15: POC Glucose 196 H 10/14/22 07:30: Sodium 135 L, Potassium 3.1 L, Chloride 104, Carbon Dioxide 23.0, Anion Gap 8, BUN 5 L, Creatinine 0.65, Estim Creat Clear Calc 71.38, Est GFR (MDRD) Af Amer 117, Est GFR (MDRD) Non-Af 97, BUN/Creatinine Ratio 7.7 L, Glucose 181 H, Calcium 8.8 10/14/22 11:35: POC Glucose 309 H Micro: Microbiology 10/10/22 15:28 Urine, Clean Catch Urine Culture - Final Culture exhibits no growth. Radiography Diagnostic Testing: Radiology Impression Abdomen X-Ray 10/14/22 05:15 IMPRESSION: Findings suggesting slightly improving bowel ileus. Continued follow-up recommended. Electronically Signed: Wyatt Ramey MD at 5:46 EDT , Physical Exam Const Constitutional Narrative: Oriented to person Resp normal respiratory effort GI GI Narrative: Nondistended, soft, nontender to palpation x4 quadrants Assessment & Plan Assessment/Plan (1) Ileus: PLAN: This 67-year-old female hospital day 4 for admission for weakness and cognitive impairment who presented additionally with colonic ileus. According to report by nursing, patient had several small bowel movements overnight and again this morning with another enema. Once again, patient is unreliable for this history and there is no one else in the room at the time of my visit. KUB this morning showed improvement in patient's ileus with decreased colonic dilatation and translation of stool burden to more distal parts of the colon. Given these clinical improvements, patient is advanced to a regular diet, but I have also ordered an additional dose of lactulose. ? If patient tolerates diet advancement she is cleared from a surgical standpoint for discharge. Would recommend outpatient follow-up with me in 1 to 2 weeks with pre-clinic KUB. Patient should be maintained on daily lactulose versus capful of MiraLAX until stooling spontaneously once daily. Complete antibiotic course for colitis/proctitis. ? Other management per primary team Charges/Coding Visit Charges Inpatient E&M: 38458 Subs Hosp L2
--- NOTE | 2022-10-14 13:28 | CASEMGMT ---
Discharge Planning [facility] not able to accept d/t staffing. Referral made to [facility] and they were able to accept with SOC Tuesday. RN CM, patient, and her notified. Amisha Adams
--- NOTE | 2022-10-14 13:32 | PCM.DC.SUM ---
Providers Date of Admission: 10/10/22 Date of Discharge: 10/14/22 Primary Care Physician: Dr. Robb Banda MD Consultations 10/10/22 18:35 Consult: General Surgery Routine Consulting Provider: Matt Ordoñez Reason for Consult: COLLON Ileus with constipation EMERGENT Consult: No Notified: Yes Date Notified: 10/10/22 Time Notified: 16:15 Method of Notification: ED Physician Initiated Consult: Nephrology Routine Consulting Provider: Charlene Cantu Reason for Consult: SEVERE HYPONATREMIA EMERGENT Consult: No Notified: Yes Date Notified: 10/10/22 Time Notified: 16:14 Method of Notification: Verbal Reason For Visit: HYPONATREMIA Diagnosis Discharge Diagnosis (1) Ileus: Status: Acute Code(s): K56.7 - Ileus, unspecified Medications at Discharge Home Medications anastrozole 1 mg tablet 1 mg PO DAILY 10/10/22 atorvastatin 40 mg tablet 40 mg PO QHS 10/10/22 citalopram 20 mg tablet 20 mg PO DAILY 10/10/22 citicoline 500 mg capsule ([employer]) 500 mg PO DAILY 10/10/22 gabapentin 300 mg capsule 300 mg PO QHS 10/10/22 insulin glargine 100 unit/mL (3 mL) subcutaneous pen (Basaglar KwikPen U-100 Insulin) 46 unit subcut QPM 10/10/22 insulin lispro 100 unit/mL subcutaneous pen 10 unit subcut BIDAC 10/10/22 magnesium oxide 400 mg PO DAILY 10/10/22 llwcbzvhjwra-pexcqlau-rkjipdq-folic acid 400 mcg-vit K1 20 mcg tablet (Women's 50 Plus Advanced) 1 tab PO DAILY 10/10/22 omeprazole 40 mg capsule,delayed release 40 mg PO DAILY 10/10/22 polyethylene glycol 3350 17 gram/dose oral powder (Miralax) 17 g PO DAILY 10/10/22 potassium chloride 20 mEq tablet,extended release 20 meq PO BID 10/10/22 promethazine 25 mg tablet 25 mg PO Q6H PRN Nausea 10/10/22 ciprofloxacin HCl 500 mg tablet (Cipro) 500 mg PO BID 8 days #16 tabs 10/14/22 lactulose 20 gram/30 mL oral solution 20 g (30 mL) PO DAILY #1,200 mL 10/14/22 lisinopril 20 mg tablet 20 mg PO DAILY #30 tabs 10/14/22 metronidazole 500 mg tablet 500 mg PO Q8H 8 days #24 tabs 10/14/22 Hospital Course Procedures - (CT with rectal Gastrografin/CT abdomen pelvis/KUB) Summary of Care Provided Minutes Spent on Discharge: 39 Hospital Course: Mrs. Munoz is a 67-year-old white female who presented to the emergency department at [facility] on 10/10/2022 with generalized weakness, lethargy, and altered mental status that had been worsening for approximately 1 week prior to presentation.? Upon admission reported that she had been lethargic and drowsy and had not been acting herself.? She had had incoherent speech and was not answering questions appropriately for approximately 1 week.? She also fell down about 3 times on the day prior to presentation and 1 time on the day of presentation without major injury.? Her also reports she not had a bowel movement for 2 weeks but was passing flatus.? Upon presentation her vital signs are stable however BMP revealed a sodium of 112, chloride of 76 and normal renal function.? A CT of the abdomen pelvis was done and showed ileus with a stable adrenal nodule.? She was admitted to the ICU and urine and serum osmolality were obtained.? No urine sodium was obtained.? The case was discussed with on-call geometry tutor and they recommended hypertonic saline and every 4 hour sodium levels.? General surgery was consulted for her ileus and recommended clear liquids with soapsuds enemas and Dulcolax suppositories x3 days. Her sodium slowly did come up with treatment. We do suspect back that this is likely related to decreased solute intake and dehydration with her lack of p.o. intake related to her ileus. Her sodium slowly corrected at an acceptable rate and was stable at 135 on the day of discharge. We did recommend she discontinue her hydrochlorothiazide and increase her lisinopril to 20 mg from 10 mg daily for blood pressure control at the time of discharge. Prescription for this was faxed to her local pharmacy. We will go ahead and continue her citalopram at this time I suspicion for SIADH related to SSRI is low. If she suffers from further hyponatremia I would discontinue this as well. With regards to her ileus,?she had frequent soapsuds enemas and o'clock suppositories. A CT of the abdomen pelvis with rectal contrast was given on 10/12/2022 that showed gastritis, constipation, mild wall thickening and inflammation of the rectosigmoid colon suggesting of colitis/proctitis, urinary bladder distention related to her constipation and a 4.5 mm stable adrenal mass on the right adrenal gland. With her colitis/proctitis she was started on Cipro and Flagyl and was discharged with a course of antibiotics to complete a total of 10 days. Rey was placed for urinary distention and was able to be removed prior to discharge and was likely related to her stool burden. With regards to the mass. Is unclear if it is functional and no Hounsfield units were given. I initially ordered a work-up however the 24-hour urine was not collected. Aldosterone level was pending at discharge. I would recommend further follow-up as outpatient for pheochromocytoma and asked her to follow-up with her primary care physician. If this does not appear to be a functionally secreting mass then it could just be followed regularly as it has noted to be stable thus far. By the a.m. of 10/14/2022 she was able to eat a regular diet and her sodium level maintained stable at 135. She was found to be stable to for discharge with home health at that time. She will need ongoing physical and occupational therapy as she did suffer from some decreased functional status. We were able to obtain a walker for her. During her hospital course her expressed concern that she may have obstructive sleep apnea. I did indicate to her that we will make a referral to pulmonary medicine and he will call for an appointment to be obtained after her discharge for an outpatient polysomnography. She is to follow-up with general surgery in 1 week and continue her antibiotics as well as her MiraLAX and lactulose daily. She was instructed to stop the lactulose if she starts having significantly loose stools. Again prescription for lisinopril 20 mg was sent to her local pharmacy along with her other prescriptions and she is to discontinue her lisinopril HCTZ. Of asked her to follow-up with her primary care physician within the next 1 to 2 weeks for blood pressure check and ongoing hospital follow-up. She does not need nephrology follow-up at discharge per discussion with the geometry tutor. Discharge diagnoses: Acute hyponatremia Ileus-resolved Constipation Colitis/proctitis Stable adrenal nodule Hypophosphatemia-resolved Hypokalemia-replace Leukocytosis-resolved Generalized weakness Anemia History of breast cancer DM-2 Hypertension Hyperlipidemia Diabetic neuropathy GERD Anxiety Depression Mild cognitive impairment Physical Exam Narrative indicates she is back to baseline with regards to her thought processes and functioning. No issues overnight. Patient is having good bowel movements. Urinating without issue. Const alert, oriented x3, no apparent distress and average body habitus Constitutional Narrative: Upper middle-aged, white female, appears older than stated age, sitting up in bed, eating breakfast of eggs and sausage,, at the bedside, appears comfortable, nontoxic General Appearance: cooperative, comfortable, well kempt and well developed Orientation / Consciousness: awake, oriented to person and oriented to place Nutritional Appearance: overweight HEENT normocephalic, head/scalp atraumatic, hearing grossly normal bilaterally and moist oral mucous membranes HEENT Narrative: Mallampati 2, no thrush, dentition is Eyes PERRL, EOMs intact bilaterally and conjunctivae normal Eyes Narrative: No scleral icterus Neck no lymphadenopathy and supple Neck Narrative: Trachea midline Resp normal respiratory effort, no retractions, no use of accessory muscles and clear to auscultation bilaterally Auscultation: Negative for rales, rhonchi or wheezes Cardio regular rate, regular rhythm, S1 normal heart sound, S2 normal heart sound, no murmurs, no rub, no gallops and no clicks GI normal to inspection, nondistended, normoactive bowel sounds, soft to palpation and non-tender Extremity no clubbing, cyanosis or edema Extremity Narrative: Pedal pulses are 2+ Skin no rashes or lesions noted, no wounds, skin turgor normal and no jaundice Neuro oriented x3, CN's II-XII intact bilaterally, moves all extremities and no focal motor deficits Neuro Narrative: Generalized weakness noted, proximal greater than distal Speech: speech normal Psych affect normal Psych Narrative: Very pleasant, appropriate Weight / BMI Weight Weight: 71 kg Body Mass Index (BMI) 27.7 ABG / Lab / Microbiology Data Result Diagrams: 10/13/22 05:52 10/14/22 07:30 Laboratory: Laboratory Results - last 24 hr 10/13/22 16:24: POC Glucose 224 H 10/13/22 21:08: POC Glucose 273 H 10/14/22 06:15: POC Glucose 196 H 10/14/22 07:30: Sodium 135 L, Potassium 3.1 L, Chloride 104, Carbon Dioxide 23.0, Anion Gap 8, BUN 5 L, Creatinine 0.65, Estim Creat Clear Calc 71.38, Est GFR (MDRD) Af Amer 117, Est GFR (MDRD) Non-Af 97, BUN/Creatinine Ratio 7.7 L, Glucose 181 H, Calcium 8.8 10/14/22 11:35: POC Glucose 309 H Microbiology: Microbiology 10/10/22 15:28 Urine, Clean Catch Urine Culture - Final Culture exhibits no growth. Radiography Diagnostic Testing: Radiology Impression Abdomen X-Ray 10/14/22 05:15 IMPRESSION: Findings suggesting slightly improving bowel ileus. Continued follow-up recommended. Electronically Signed: Wyatt Ramey MD at 5:46 EDT , D/C Instructions Discharge Diet: Low fat / Low cholesterol and 1800 Calorie Control Diet Discharge Activity: Return to Normal Activity Meaningful Use Info Meaningful Use Diagnoses (Choose all that apply): None applicable Discharge Plan Admission Admit Date/Time: 10/10/22 16:09 Primary Reason for Your Visit: Altered mental status/lethargy/generalized weakness Attending Provider: Mackenzie Neumann Primary Care Provider: Robb Banda Consulting Providers: Alen Alex ; Matt rOdoñez ; Charlene Cantu Instructions Additional Instructions / Restrictions: 1. Take both of the lactulose and MiraLAX daily. Okay to hold lactulose if having loose bowels. 2. With your sodium being low, we will stop your hydrochlorothiazide and your blood pressure pill and increase the lisinopril dose from 10 mg to 20 mg 3. Your CAT scan was suggestive of proctitis/colitis which is an inflammation due to infection of the lower part of the colon. Please continue your antibiotics as prescribed and complete the full course 4. Your CT scan did show adrenal nodule which looks stable when compared to previous scans. We did order some functional test for the nodule to see if it is secreting any hormones that could adversely affect you. These tests are pending and I will review them ongoing after discharge. Please follow-up with your primary care physician with regards to this. Discharge Orders/Prescriptions Prescriptions: New lisinopril 20 mg tablet 20 mg PO DAILY Qty: 30 2RF ciprofloxacin HCl [Cipro] 500 mg tablet 500 mg PO BID 8 Days Qty: 16 0RF metronidazole 500 mg tablet 500 mg PO Q8H 8 Days Qty: 24 0RF lactulose 20 gram/30 mL solution 20 g PO DAILY Qty: 1200 0RF Continued atorvastatin 40 mg Tablet 40 mg PO QHS anastrozole 1 mg Tablet 1 mg PO DAILY omeprazole 40 mg Capsule,Delayed Release(Dr/Ec) 40 mg PO DAILY citalopram 20 mg Tablet 20 mg PO DAILY promethazine 25 mg Tablet 25 mg PO Q6H PRN (Reason: Nausea) gabapentin 300 mg Capsule 300 mg PO QHS polyethylene glycol 3350 [Miralax] 17 gram/dose Powder 17 g PO DAILY magnesium oxide 400 mg magnesium Capsule 400 mg PO DAILY potassium chloride 20 mEq Tablet Extended Release 20 meq PO BID Women's 50 Plus Advanced 400-20 mcg Tablet 1 tab PO DAILY [facility] 500 mg Capsule 500 mg PO DAILY insulin lispro 100 unit/mL Insulin Pen 10 unit SUBCUT BIDAC insulin glargine [Basaglar KwikPen U-100 Insulin] 100 unit/mL (3 mL) Insulin Pen 46 unit SUBCUT QPM Discontinued lisinopril-hydrochlorothiazide 10-12.5 mg Tablet 1 tab PO DAILY amoxicillin-pot clavulanate 875-125 mg Tablet 1 tab PO BID Referrals / Follow Up: Matt Ordoñez MD [Med Staff - Active Staff] - Within 1 Week (You should be called by Dr. Ordoñez's office to schedule follow-up appointment) Robb Banda MD [Primary Care Provider] - Within 2 Weeks Nevaeh Ulrich NP, TRAVIS-C [Med Staff - Adv Practice Prof] - Within 1 Month (call for appt to set up outpt sleep study) Disposition Disposition (needs filled in before D/C Order can be placed): Home Health Service Charges/Coding Visit Charges Inpatient E&M: 11282 Disch Hosp >30min
[2022-10-14] MEDS: Potassium Chloride Oral Tablet 20 MEQ 60 MEQ PO (14:59)
[2022-10-14 15:30] VITALS: BP 137/73; PULSE 95; RESP 18; TEMP 36.3; O2SAT 97
[2022-10-17 06:37] LABS: Aldosterone, Serum < 1.0 ng/dL (0.0-30.0)
== END 2022-10-14 15:38 | disposition home health service (06) | DRG 641 ==
LOC: ED 16:21 → ICU 10-11 00:23 → MS3 10-11 16:13
PROVIDERS: Family Medicine; Nurse Practitioner; Nurse Practitioner Adult Health; Admitting Provider Internal Medicine; Emergency Provider Student in an Organized Health Care Education/Training Program; PCP Internal Medicine; Visit Provider Internal Medicine
DX: E87.1 Hypo-osmolality and hyponatremia (principal); F03.94 Unspecified dementia, unspecified severity, with anxiety; F03.93 Unspecified dementia, unspecified severity, with mood disturbance; L40.50 Arthropathic psoriasis, unspecified; E83.39 Other disorders of phosphorus metabolism; C50.919 Malignant neoplasm of unspecified site of unspecified female breast; D63.0 Anemia in neoplastic disease; D35.01 Benign neoplasm of right adrenal gland; E11.40 Type 2 diabetes mellitus with diabetic neuropathy, unspecified; Z79.4 Long term (current) use of insulin; K56.41 Fecal impaction; E87.0 Hyperosmolality and hypernatremia; E78.5 Hyperlipidemia, unspecified; K21.9 Gastro-esophageal reflux disease without esophagitis; I10 Essential (primary) hypertension; G47.33 Obstructive sleep apnea (adult) (pediatric); E87.6 Hypokalemia; E86.0 Dehydration; F41.9 Anxiety disorder, unspecified; K52.9 Noninfective gastroenteritis and colitis, unspecified; K62.89 Other specified diseases of anus and rectum; D72.829 Elevated white blood cell count, unspecified; E86.1 Hypovolemia; F32.A Depression, unspecified; N28.89 Other specified disorders of kidney and ureter; E66.9 Obesity, unspecified; Z68.27 Body mass index [BMI] 27.0-27.9, adult; R29.6 Repeated falls; Z17.0 Estrogen receptor positive status [ER+]; Z90.13 Acquired absence of bilateral breasts and nipples; Z79.01 Long term (current) use of anticoagulants; Z79.811 Long term (current) use of aromatase inhibitors; Z79.899 Other long term (current) drug therapy
CPT/HCPCS: 36415; 36591; 70450; 71046; 74018; 74019; 74177; 80048; 80053; 81001; 82088; 82384; 82436; 82533; 82570; 82728; 82962; 83540; 83550; 83690; 83735; 83835; 83930; 83935; 84100; 84133; 84156; 84295; 84300; 84443; 84484; 84585; 85025; 87086; 92610; 93005; 94668; 97110; 97161; 97166; 97535; 99252; 99285; J7030; J7050; Q9967; A4216; G0463; J0744; J2405; J2597

== ENCOUNTER → 2024-07-17 | Outpatient (CLI) | payer MEDICARE, SELFPAY | END | disposition home or self-care (01) | PROVIDERS: PCP Internal Medicine; Referring Provider Internal Medicine; Visit Provider Internal Medicine | DX: G47.33 Obstructive sleep apnea (adult) (pediatric) (principal) | CPT/HCPCS: 95810 ==

== ENCOUNTER 2024-08-30 18:24 | Inpatient (IN) | payer MEDICARE, SELFPAY ==
[2024-08-30] VITALS (8 sets, daily range): BP systolic 121–154; BP diastolic 66–99; PULSE 67–99; RESP 18; TEMP 36.8–36.9; O2SAT 97–98; BMI 33.1; BMI 31.7
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
[2024-08-30 19:57] LABS: Bedside Glucose 156 mg/dL (74-106)
[2024-08-30 20:03] LABS: Bacteria 0 SEEN /hpf (None Seen); Mucous, Urine 0 SEEN /hpf (<or=2+)
[2024-08-30 20:05] LABS: Absolute Lymphocyte Count 1.78 X10^3/uL (0.83-4.51); Absolute Neutrophil Count 9.4 X10^3/uL (2.0-7.7); Basophil# 0.04 X10^3/uL; Basophil% 0.3 % (0-1); Hematocrit 39.9 % (37-47); Lymphocyte # 1.78 X10^3/ul (0.83-4.51); Lymphocyte % 14.8 % (19-41); Mean Corp Hgb Conc 32.6 g/dL (32-36); Mean Corpuscular Hgb 27.5 pg (27.0-32.0); Mean Corpuscular Volume 84.4 fL (81-99); Mean Platelet Vol. 9.6 fl (6.2-12.0); Monocyte# 0.74 X10^3/uL; Monocyte% 6.1 % (0-10); NRBC Flagged by Analyzer 0 % (0-5); Neutrophil # 9.37 X10^3/uL (2.7-7.7); Neutrophil % 77.9 % (47-70); Platelet Count 198 K/mm3 (150-450); RBC Distribution Width CV 16.2 % (11.6-14.6); RBC Distribution Width SD 49.6 fl (35.1-43.9); Red Blood Count 4.73 M/mm3 (4.2-5.4)
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
[2024-08-30 20:07] LABS: Glucose, Dipstick Normal (Normal); Ketone-Dipstick 5 mg/dl (Negative); Leukocyte Esterase-Dipstick 100 /ul (Negative); Nitrite-Dipstick Negative (Negative); Occult Blood-Urine 25 /ul (Negative); Protein-Dipstick 30 mg/dl (Negative); Specific Gravity, Urine 1.015 (1.002-1.030); Urine Bilirubin Dipstick Negative (Negative); Urine Urobilinogen 1 mg/dl (Normal)
[2024-08-30 20:08] LABS: Color, Urine Yellow (Yellow)
[2024-08-30 20:09] LABS: Urine Clarity Sl Cloudy (Clear)
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
[2024-08-30 20:15] LABS: White Blood Cells 10-25 SEEN /hpf (0-5)
[2024-08-30 20:16] LABS: Red Blood Cells-Urine 0-5 SEEN /hpf (0-5); Squamous Epithelial Cells - UA 0-5 SEEN /hpf (5-10)
[2024-08-30 20:17] LABS: Hyaline Cast 0-5 SEEN /lpf (0-5)
[2024-08-30 20:18] LABS: Fine Granular Cast- Urine 0-5 SEEN /lpf (0-5)
[2024-08-30 20:27] LABS: Anion Gap 16 (5-15); BUN 16 mg/dL (4-19); BUN/Creat Ratio 15.5 RATIO (10-20); Calcium,Total 10.1 mg/dL (7.6-11.0); Carbon Dioxide 22.6 mmol/L (21.0-32.0); Chloride 102 mmol/L (98-108); Creatinine, Serum 1.06 mg/dL (0.70-1.20); EST Glomerular Filtration Rate 58 (>60); Estimated Creatinine Clearance 55.18 ml/min (50-250); Glucose 158 mg/dL (70-99); Potassium 4.3 mmol/L (3.3-5.1); Sodium Level 140 mmol/L (133-145)
[2024-08-30 20:52] LABS: Troponin T High Sensitivity 7 ng/L (<=14)
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
[2024-08-30 22:33] LABS: Troponin T High Sens 2 HR 7 ng/L (<=14)
[2024-08-30] MEDS: Ceftriaxone 1 GM/50 ML BAG IV (22:55)
[2024-08-30 23:21] LABS: Magnesium 1.7 mg/dL (1.5-2.2)
[2024-08-31] MEDS: 0.9% Normal Saline (1000mL) 1,000 ML 70 ML IV (00:08)
[2024-08-31 00:29] LABS: Alcohol, Blood (Medical)-Serum < 10.1 mg/dL (<=10.0)
[2024-08-31 01:00] LABS: Amphetamine Urine NEGATIVE (<1000 ng/mL); Barbiturate Urine NEGATIVE (< 200 ng/mL); Benzodiazepine Urine NEGATIVE (< 200 ng/mL); Buprenorphine Urine NEGATIVE (< 200 ng/mL); Cocaine Urine NEGATIVE (< 300 ng/mL); Fentanyl, Urine NEGATIVE; Methadone Urine NEGATIVE (< 300 ng/mL); Opiates Urine NEGATIVE (< 300 ng/mL); Oxycodone, Urine NEGATIVE (< 100 ng/mL); PCP Urine NEGATIVE (< 25 ng/mL); THC Urine NEGATIVE (< 50 ng/mL)
[2024-08-31 01:14] LABS: Hemoglobin A1c 7.7 % (<=5.6)
[2024-08-31 01:33] LABS: Troponin T High Sens 4 HR 7 ng/L (<=14)
[2024-08-31 01:53] LABS: Vitamin B12 487 pg/mL (180-914)
[2024-08-31 05:20] LABS: Absolute Neutrophil Count 5.8 X10^3/uL (2.0-7.7); Basophil# 0.03 X10^3/uL; Basophil% 0.4 % (0-1); Hematocrit 34.1 % (37-47); Lymphocyte % 22.9 % (19-41); Mean Corp Hgb Conc 32.3 g/dL (32-36); Mean Corpuscular Hgb 27.3 pg (27.0-32.0); Mean Corpuscular Volume 84.6 fL (81-99); Mean Platelet Vol. 9.2 fl (6.2-12.0); Monocyte# 0.55 X10^3/uL; Monocyte% 6.6 % (0-10); NRBC Flagged by Analyzer 0 % (0-5); Neutrophil # 5.75 X10^3/uL (2.7-7.7); Neutrophil % 69.3 % (47-70); Platelet Count 165 K/mm3 (150-450); RBC Distribution Width CV 16.1 % (11.6-14.6); RBC Distribution Width SD 49.3 fl (35.1-43.9); Red Blood Count 4.03 M/mm3 (4.2-5.4); White Blood Count 8.3 K/mm3 (4.4-11.0)
[2024-08-31 05:29] VITALS: BP 138/74; PULSE 85; RESP 16; TEMP 36.6; O2SAT 98
[2024-08-31 05:50] LABS: Phosphorus 3.5 mg/dL (2.7-4.5)
[2024-08-31 06:05] LABS: Cholesterol 129 mg/dL (<=200); High Density Lipoprotein 31 mg/dL; Low Density Lipoprotein Calc. 43 mg/dL; Triglycerides 274 mg/dL; Very Low Density Lipoprotein 55 mg/dL (5-40); cholesterol:hdl ratio screen 4.13
[2024-08-31 06:06] LABS: ALB/GLOB Ratio 1.4 RATIO (0.9-2.4); AST(SGOT) 26 U/L (<=31); Alanine Aminotransfer ALT/SGPT 22 U/L (<=34); Albumin, Serum 3.8 g/dL (3.4-4.8); Alkaline Phosphatase 122 U/L (35-104); Anion Gap 16 (5-15); BUN 18 mg/dL (4-19); BUN/Creat Ratio 19.2 RATIO (10-20); Calcium,Total 9.4 mg/dL (7.6-11.0); Carbon Dioxide 22.4 mmol/L (21.0-32.0); Chloride 101 mmol/L (98-108); Creatinine, Serum 0.92 mg/dL (0.70-1.20); EST Glomerular Filtration Rate 68 (>60); Estimated Creatinine Clearance 62.14 ml/min (50-250); Globulin 2.8 g/dL (2.2-4.2); Glucose 238 mg/dL (70-99); Protein, Total 6.6 g/dL (5.9-8.4); Sodium Level 139 mmol/L (133-145); Total Bilirubin 0.25 mg/dL (0.00-1.30)
[2024-08-31 06:32] LABS: Bedside Glucose 235 mg/dL (74-106)
[2024-08-31 06:56] VITALS: O2SAT 98
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
[2024-08-31] MEDS: Haloperidol Lactate 5 MG/ML Vial 2 MG IM (08:19)
--- NOTE | 2024-08-31 09:03 | NURSING ---
T change of shift this at pt set her bed exit off and was stating that she was going to go home. She came her on her own will and was not wanting to stay anymore. She was wanting to go home. This RN explained that we needed a dr order to her her released. Pt said something about having a family reunion with 5 other women and her two sons last night and she stayed so we could do some testing on her. She could tell me her name and that she was at the hospital. Security was called and pt was dressed and walking halls trying to leave. Both security guards came up and then Dr Neumann came to the unit. Pt did go back to her room and she was given a dose of IM haldol. Pt now sitting in her chair in the room.
--- NOTE | 2024-08-31 09:45 | CASEMGMT ---
Addendum entered by Jena Wallace 08/31/24 10:41: Social Work SW received call from Janice at Crisis and she will come in shortly to assess pt for [facility] placement. RN and physican notified. VICKY Watts Original Note: Social Work SW spoke with physician who is requesting [facility] placement. Referral made to Crisis at [facility]. Clinicals faxed. VICKY Light
[2024-08-31] MEDS: Lactobacillis Acidophilus 1 CAP PO ×2 (09:47→16:34)
[2024-08-31] MEDS: Pantoprazole Sodium 40 MG Tablet PO (09:48)
[2024-08-31] MEDS: Magnesium Chloride 64 MG Delay Rel.Tablet 128 MG PO (09:48)
[2024-08-31] MEDS: Zinc Sulfate 50 mg zinc (220 mg) ORAL capsule PO (09:48)
[2024-08-31] MEDS: Anastrozole 1 MG TABLET PO (09:48)
[2024-08-31] MEDS: Citalopram 20 MG Tablet PO (09:48)
[2024-08-31] MEDS: Lactulose 20 GM/30 ML UDC PO (09:51)
[2024-08-31] MEDS: Donepezil HCl 5 MG Tablet PO (09:51)
[2024-08-31] MEDS: Polyethylene Glycol 3350 17 GM PACKET PO (09:52)
[2024-08-31] MEDS: RisperiDONE 0.5 MG Tablet PO (09:58)
[2024-08-31] MEDS: Gabapentin 100 MG Capsule PO (09:58)
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
[2024-08-31 12:34] LABS: Bedside Glucose 269 mg/dL (74-106)
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
[2024-08-31] MEDS: Ascorbic Acid 500 MG Tablet 1000 MG PO (16:34)
[2024-08-31] MEDS: Potassium Chloride Oral Tablet 20 MEQ PO (16:35)
[2024-08-31] MEDS: Insulin Lispro 100 UNIT/ML INSULN.PEN 6 UNIT SC (16:39)
[2024-08-31 17:05] LABS: Bedside Glucose 235 mg/dL (74-106)
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
[2024-08-31 17:36] VITALS: BP 142/78; PULSE 88; RESP 18; TEMP 37.1; O2SAT 96
--- NOTE | 2024-08-31 18:52 | PCA ---
late entry, [facility] accepted patient, number for nurse to nurse is [phone] opt 1. Placed call to [facility] to arrange transport ETA 2 HRS, primary rn aware. Call placed to [facility] and he is aware of transfer.
--- NOTE | 2024-08-31 18:57 | NURSING ---
Report called to Lisa at [facility] for Pysch [phone]. Pt will be picked up at 20:15.
[2024-08-31 19:22] LABS: HIV Nonreactive (Nonreactive); Vitamin B12 435 pg/mL (180-914)
[2024-08-31 20:40] VITALS: BP 145/79; PULSE 80; RESP 17; TEMP 36.9; O2SAT 96
== END 2024-08-31 20:48 | DRG 689 ==
LOC: ED 19:07 → MS3 22:46
PROVIDERS: Admitting Provider Internal Medicine; Emergency Provider Emergency Medicine; PCP Internal Medicine; Visit Provider Internal Medicine
DX: N30.00 Acute cystitis without hematuria (principal); G93.41 Metabolic encephalopathy; F03.918 Unspecified dementia, unspecified severity, with other behavioral disturbance; E11.40 Type 2 diabetes mellitus with diabetic neuropathy, unspecified; E66.9 Obesity, unspecified; J32.0 Chronic maxillary sinusitis; L40.50 Arthropathic psoriasis, unspecified; F32.A Depression, unspecified; E78.5 Hyperlipidemia, unspecified; Z79.4 Long term (current) use of insulin; S40.012A Contusion of left shoulder, initial encounter; M19.90 Unspecified osteoarthritis, unspecified site; K21.9 Gastro-esophageal reflux disease without esophagitis; G47.33 Obstructive sleep apnea (adult) (pediatric); F41.9 Anxiety disorder, unspecified; Z68.33 Body mass index [BMI] 33.0-33.9, adult; Z79.899 Other long term (current) drug therapy; Y04.8XXA Assault by other bodily force, initial encounter
CPT/HCPCS: 36415; 70450; 71046; 80048; 80053; 80061; 80307; 81001; 82077; 82607; 82746; 82962; 83036; 83735; 84100; 84443; 84484; 85025; 86703; 87086; 93005; 99285; A4216

== ENCOUNTER 2024-09-17 07:31 | Emergency (ER) | payer MEDICARE, SELFPAY ==
[2024-09-17 07:34] VITALS: BP 101/74; PULSE 78; RESP 16; TEMP 36.8; O2SAT 99; BMI 32.2
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
[2024-09-17 11:15] LABS: Absolute Lymphocyte Count 1.41 X10^3/uL (0.83-4.51); Absolute Neutrophil Count 5.9 X10^3/uL (2.0-7.7); Basophil# 0.03 X10^3/uL; Basophil% 0.4 % (0-1); Hemoglobin 12.2 g/dL (12.0-15.0); Lymphocyte # 1.41 X10^3/ul (0.83-4.51); Lymphocyte % 17.8 % (19-41); Mean Corpuscular Hgb 27.7 pg (27.0-32.0); Mean Corpuscular Volume 84.1 fL (81-99); Mean Platelet Vol. 9.9 fl (6.2-12.0); Monocyte# 0.51 X10^3/uL; Monocyte% 6.5 % (0-10); NRBC Flagged by Analyzer 0 % (0-5); Neutrophil % 74.7 % (47-70); Platelet Count 192 K/mm3 (150-450); RBC Distribution Width CV 16.1 % (11.6-14.6); RBC Distribution Width SD 49.2 fl (35.1-43.9); White Blood Count 7.9 K/mm3 (4.4-11.0)
[2024-09-17 11:24] LABS: Mucous, Urine 0 SEEN /hpf (<or=2+); Red Blood Cells-Urine 0 SEEN /hpf (0-5)
[2024-09-17 11:30] LABS: Color, Urine Yellow (Yellow); Glucose, Dipstick Normal (Normal); Ketone-Dipstick Negative (Negative); Leukocyte Esterase-Dipstick 100 /ul (Negative); Nitrite-Dipstick Negative (Negative); Occult Blood-Urine 10 /ul (Negative); Protein-Dipstick 15 mg/dl (Negative); Urine Bilirubin Dipstick Negative (Negative); Urine Clarity Sl. Cloudy (Clear); Urine Urobilinogen Normal (Normal)
[2024-09-17 11:36] LABS: Bacteria RARE /hpf (None Seen); Squamous Epithelial Cells - UA 0-5 SEEN /hpf (5-10); White Blood Cells 25-50 SEEN /hpf (0-5)
[2024-09-17 11:51] LABS: ALB/GLOB Ratio 1.4 RATIO (0.9-2.4); AST(SGOT) 28 U/L (<=31); Alanine Aminotransfer ALT/SGPT 25 U/L (<=34); Albumin, Serum 4.1 g/dL (3.4-4.8); Alkaline Phosphatase 136 U/L (35-104); Anion Gap 14 (5-15); BUN 10 mg/dL (4-19); BUN/Creat Ratio 12.9 RATIO (10-20); Calcium,Total 9.7 mg/dL (7.6-11.0); Carbon Dioxide 21.9 mmol/L (21.0-32.0); Chloride 104 mmol/L (98-108); Creatinine, Serum 0.81 mg/dL (0.70-1.20); EST Glomerular Filtration Rate 80 (>60); Estimated Creatinine Clearance 71.21 ml/min (50-250); Glucose 266 mg/dL (70-99); Potassium 4.6 mmol/L (3.3-5.1); Protein, Total 7.1 g/dL (5.9-8.4); Sodium Level 139 mmol/L (133-145); Total Bilirubin 0.41 mg/dL (0.00-1.30)
--- NOTE | 2024-09-17 12:19 | ED.RN ---
WALL WORKER HAS BEEN IN WITH PT, FAMILY HAS COME AND HAVING FURTHER DISCUSSION WITH FAMILY AND PT.
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
[2024-09-17 14:03] VITALS: BP 138/90; PULSE 82; RESP 16; O2SAT 98
[2024-09-17 14:52] LABS: Amphetamine Urine NEGATIVE (<1000 ng/mL); Barbiturate Urine NEGATIVE (< 200 ng/mL); Benzodiazepine Urine NEGATIVE (< 200 ng/mL); Buprenorphine Urine NEGATIVE (< 200 ng/mL); Cocaine Urine NEGATIVE (< 300 ng/mL); Fentanyl, Urine NEGATIVE; Methadone Urine NEGATIVE (< 300 ng/mL); Opiates Urine NEGATIVE (< 300 ng/mL); Oxycodone, Urine NEGATIVE (< 100 ng/mL); PCP Urine NEGATIVE (< 25 ng/mL); THC Urine NEGATIVE (< 50 ng/mL)
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
--- NOTE | 2024-09-17 16:41 | CM.ED ---
Social work For clarity, patient was prescribed the following by [facility] and the medications were not picked up by patient or patient's : - increased dose of Citalopram. - Aricept. - Rexulti. 1620: approached by Yomaira RODRIGUEZ to help with patient getting changed into a gown due to patient's pink slip and earlier refusals. Patient's , Christos, bedside. Patient observed as angry and cursing at Yomaira RODRIGUEZ and this SW. Patient reminded of patient's pink slip and paranoia discussed with this SW earlier. Christos remained quiet at bedside. 1625: called Annalisa with [employer] (ph: [phone]) to receive update on patient's referral. Annalisa stated inability to accept patient based on insurance. Called [facility] (ph: [phone]) to receive update on patient's referral. Individual stated just receiving patient's referral off the fax machine. This SW expressed surprise due to it being over an hour since being sent; staff stated not having a corporate secretary, not having a staff member at the fax machine all the time, and asking if SW called first. SW reported calling first and staff reported not being aware of referral being sent in and apologized. Update to come from [facility]. 1645: called [facility] (ph: ) and had to leave a voicemail. 1700: [facility] returned call stating there were no available beds this evening. [facility] also stated having difficulty verifying patient's insurance. SW checked with Tiki from [employer] who clarified that patient's insurance was verified today. Papers printed to send [facility] if needed. 1715: called [facility] (ph: [phone]) and there are no beds available. Called [facility] (ph: ) and spoke with Mayte. Beds available, so referral faxed (f: ). 1725: per Yomaira RODRIGUEZ, patient is now stating patient will shoot self and wants to . Patient previously denied SI/HI when talking with this SW. Plan: inpatient psychiatric placement, pending acceptance. Yane Alexander, MIDDLE SCHOOL VOLLEYBALL COACH, ELECTRONIC LAB TECHNICIAN
--- NOTE | 2024-09-17 17:19 | ED.RN ---
This RN went to check on the patient after she went to the restroom, patient states leave me alone, I want to . This RN went back into bedside to reevaluate and the patient states I don't want to I just dont want to be here.
[2024-09-17 17:28] LABS: Alcohol, Blood (Medical)-Serum < 10.1 mg/dL (<=10.0)
--- NOTE | 2024-09-17 17:41 | ED.RN ---
This RN went to give the patient her food and the patient stated I want to , just leave. My left me. This RN stated will be back,, he left due to you needing to get in a gown. Can I give you something to help you calm down? Pt states Only if it is going to kill me. This RN notified SW and Dr Roca. Dr Roca ordered meds to help calm pt down.
[2024-09-17] MEDS: Haloperidol Lactate 5 MG/ML Vial 2.5 MG IV (17:47)
[2024-09-17 18:04] VITALS: BP 136/64; PULSE 87; RESP 18; O2SAT 96
--- NOTE | 2024-09-17 18:32 | CM.ED ---
Social work 175: around this time, patient accepted to [facility] in [place]; they called ED wood club neck whipper with accepting information. Patient not updated at this time due to agitation. 183: called Christos Munoz (ph: [phone]), son Amilcar Be (ph: [phone]), and son Beto Be (ph: [phone]) to provide update on placement. All 3 accepting of information and Christos apologized for patient's reaction earlier to the news of being placed. Have not updated patient yet due to being calm at this moment after earlier agitation. Plan: [facility] [place], pending transport around 2200. Yane Alexander, PERINATAL SOCIAL WORKER, NCR OPERATOR
--- NOTE | 2024-09-17 19:05 | CM.ED ---
Social work 1900: called to update Justice at [facility] (ph: [phone]) on patient's disposition. Left a voicemail stating patient's update, but avoiding leaving any identifying information aside from initials due to speaking earlier in the day to Justice about this patient. Justice to call Tatyana PERRY tomorrow if additional answers are needed. Plan: [facility] in [place], pending transport. Yane Alexander, SOFTWARE QUALITY MANAGER, SMALL PRODUCTS I ASSEMBLER
[2024-09-17 21:44] VITALS: BP 136/76; PULSE 76; RESP 18; TEMP 36.6; O2SAT 96
== END 2024-09-17 21:56 ==
PROVIDERS: Emergency Provider Emergency Medicine; PCP Internal Medicine; Visit Provider Emergency Medicine
DX: E11.40 Type 2 diabetes mellitus with diabetic neuropathy, unspecified (principal); F03.90 Unspecified dementia, unspecified severity, without behavioral disturbance, psychotic disturbance, mood disturbance, and anxiety
CPT/HCPCS: 80053; 80307; 81001; 82077; 83735; 85025; 96374; 96376; 99285; A4216

== ENCOUNTER → 2024-12-14 | Outpatient (CLI) | payer MEDICARE, SELFPAY | END | disposition home or self-care (01) | PROVIDERS: PCP Internal Medicine; Referring Provider Physician Assistant Medical; Visit Provider Physician Assistant Medical | DX: L40.0 Psoriasis vulgaris (principal) | CPT/HCPCS: 36415; 86480 ==